=== PATIENT | female | born 1935 | race Caucasian/White ===

== ENCOUNTER 2016-08-29 17:21 | Emergency (ER) | payer OTHER ==
[2016-08-29 17:45] VITALS: TEMP 98.2
[2016-08-29] MEDS ORDERED: IPRATROPIUM/ALBUTEROL 3 ML DEYVIAL IH ONE (18:44)
--- NOTE | 2016-08-29 18:46 | EDPHY ---
H & P Time Seen by Provider: 08/29/16 18:34 HPI/ROS: CHIEF COMPLAINT: Cough and shortness of breath HISTORY OF PRESENT ILLNESS: This 79-year-old woman presents with 1 week of cough and shortness of breath which is much worse today. It is associated with yellow mucus and worse with any exertion. Today she stayed in bed all day and could even go up and down a flight of stairs. It is associated with central chest pain which is present only when she coughs and a mild sore throat. REVIEW OF SYSTEMS: Eye: no change in vision ENT: No ear symptoms. Cardiac: no chest pain or syncope Pulmonary: HPI, no hemoptysis Abdomen: no vomiting, diarrhea, abdominal pain Musculoskeletal: no back pain Skin: no rash Neuro: no headache Constitutional: no fever : no urinary symptoms A comprehensive 10 point review of systems is otherwise negative aside from elements mentioned in the history of present illness. PAST MEDICAL HISTORY: Includes hypertension and hyperlipidemia, aortic valve replacement not on anticoagulants, left total knee and hip arthroplasty, right lower lung lobectomy. The right lung surgery was in 1994 for what was thought might be cancer but it turned out to just be a piece of cartilage. Social history: Ex smoker General Appearance: Alert and conversant, cooperative. Eyes: No scleral icterus. ENT, Mouth: Normal mucous membranes. No angioedema and no pharyngeal erythema or exudate. Respiratory: Decreased breath sounds bilaterally, rhonchi at the right base. Cardiovascular: Regular rate and rhythm. 2/6 systolic murmur. Gastrointestinal: Abdomen is soft and non tender. Neurological: Alert and oriented x3. Normally conversant. Face symmetric, normal movement and sensation in all extremities. Skin: Warm and dry, no rashes. Musculoskeletal: No peripheral edema and no joint swelling. Psychiatric: Not agitated. Emergency Department course/MDM: DuoNeb, chest x-ray, CBC and screening lactate. Patient's symptoms would be unlikely to be CHF for acute coronary syndrome or pulmonary embolism. 1932: Results discussed, no evidence of pneumonia, patient says her normal baseline oxygen saturations are in the mid to high 80s. Plan to walk her around the emergency department if her symptoms or reasonable and then discharge with albuterol MDI and cough medication. Patient tolerated walking well. She is at her baseline oxygen saturation. She would like to go home which I think is reasonable. I think it is unlikely she has pneumonia or other acute bacterial infection. Smoking Status: Former smoker Constitutional: Initial Vital Signs Temperature (C) 36.8 C 08/29/16 17:42 Heart Rate 68 08/29/16 17:42 Respiratory Rate 16 08/29/16 17:42 Blood Pressure 149/72 H 08/29/16 17:42 O2 Sat (%) 88 L 08/29/16 17:42 O2 Delivery Mode Room Air O2 (L/minute) 2 Allergies/Adverse Reactions: Penicillins Allergy (Verified 08/02/11 08:34) Hives Home Medications: Medication Instructions Recorded Aspirin [Aspirin 81mg (*)] 81 mg PO HS 02/23/14 Atorvastatin Calcium [Lipitor 40 40 mg PO HS 02/23/14 mg (*)] Cholecalciferol Vit D3 [Vitamin D3 2,000 units PO DAILY 02/23/14 (*)] Herbals/Supplements -Info Only 1 ea PO DAILY 02/23/14 Multivitamins [Multivitamin (*)] 1 tab PO DAILY 02/23/14 Ferrous Sulfate [Ferrous Sulf 325 325 mg PO DAILY 10/27/14 MG (*)] [place]-3 Fatty Acids [Fish Oil 1000 1,000 mg PO DAILY 10/27/14 mg (*)] Metoprolol Tartrate [Lopressor 25 12.5 mg PO BID 01/08/15 mg (*)] Ascorbic Acid [Vitamin C 500 mg 500 mg PO DAILY 04/13/16 (*)] Calcium Carbonate [Oyster Shell 500 mg PO DAILY 04/13/16 Calcium 500 mg (*)] Acetaminophen [Tylenol 325mg (*)] 325 - 650 mg PO Q4 PRN #0 tab 04/14/16 Valacyclovir HCl [Valtrex] 1,000 mg PO TID #21 tab 04/14/16 predniSONE 60 mg PO DAILY #21 tab 04/14/16 Benzonatate [Tessalon Pearles (RX)] 100 mg PO Q8 PRN #15 cap 08/29/16 Medical Decision Making - Diagnostics EKG Interpretation: 12-lead EKG interpreted by me; official reading is in trace master. My interpretation is sinus rhythm with LVH rate 66 Differential Diagnosis: Differential diagnosis considered for shortness of breath including but not limited to pulmonary infectious process, COPD, asthma, pulmonary embolus and congestive heart failure. - Data Points Laboratory Results: Laboratory Results 08/29/16 19:02 08/29/16 19:02 08/29/16 08/29/16 08/29/16 19:08 19:02 19:02 WBC RBC Hgb Hct MCV MCH MCHC RDW Plt Count MPV Neut % (Auto) Lymph % (Auto) [place] % (Auto) Eos % (Auto) Baso % (Auto) Nucleat RBC Rel Count Absolute Neuts (auto) Absolute Lymphs (auto) Absolute Monos (auto) Absolute Eos (auto) Absolute Basos (auto) Absolute Nucleated RBC Immature Gran % Immature Gran # VBG Lactic Acid 0.9 mmol/L mmol/L (0.7-2.1) Sodium 139 mEq/L mEq/L (134-144) Potassium 4.5 mEq/L mEq/L (3.5-5.2) Chloride 102 mEq/L mEq/L (97-110) Carbon Dioxide 28 mEq/l mEq/l (22-31) Anion Gap 9 mEq/L mEq/L (8-16) BUN 15 mg/dL mg/dL (7-23) Creatinine 0.9 mg/dL mg/dL (0.6-1.0) Estimated GFR 60 Glucose 91 mg/dL mg/dL (70-100) Calcium 9.8 mg/dL mg/dL (8.5-10.4) Total Bilirubin 0.9 mg/dL mg/dL (0.1-1.4) Influenza Typ A,B (DFA) NEGATIVE FOR FLU (NEGATIVE) 08/29/16 19:02 WBC 4.84 10^3/uL 10^3/uL (3.80-9.50) RBC 4.70 10^6/uL 10^6/uL (4.18-5.33) Hgb 14.6 g/dL g/dL (12.6-16.3) Hct 42.8 % % (38.0-47.0) MCV 91.1 fL fL (81.5-99.8) MCH 31.1 pg pg (27.9-34.1) MCHC 34.1 g/dL g/dL (32.4-36.7) RDW 13.7 % % (11.5-15.2) Plt Count 183 10^3/uL 10^3/uL (150-400) MPV 9.2 fL fL (8.7-11.7) Neut % (Auto) 53.8 % % (39.3-74.2) Lymph % (Auto) 23.1 % % (15.0-45.0) [place] % (Auto) 15.7 % H % (4.5-13.0) Eos % (Auto) 6.0 % % (0.6-7.6) Baso % (Auto) 1.2 % % (0.3-1.7) Nucleat RBC Rel Count 0.0 % % (0.0-0.2) Absolute Neuts (auto) 2.60 10^3/uL 10^3/uL (1.70-6.50) Absolute Lymphs (auto) 1.12 10^3/uL 10^3/uL (1.00-3.00) Absolute Monos (auto) 0.76 10^3/uL 10^3/uL (0.30-0.80) Absolute Eos (auto) 0.29 10^3/uL 10^3/uL (0.03-0.40) Absolute Basos (auto) 0.06 10^3/uL 10^3/uL (0.02-0.10) Absolute Nucleated RBC 0.00 10^3/uL 10^3/uL (0-0.01) Immature Gran % 0.2 % % (0.0-1.1) Immature Gran # 0.01 10^3/uL 10^3/uL (0.00-0.10) VBG Lactic Acid Sodium Potassium Chloride Carbon Dioxide Anion Gap BUN Creatinine Estimated GFR Glucose Calcium Total Bilirubin Influenza Typ A,B (DFA) Medications Given: Discontinued Medications Albuterol Sulfate (Proventil Inh Prepack) 1 mdi TAKEHOME EDNOW ONE Stop: 08/29/16 19:37 Last Admin: 08/29/16 19:46 Dose: 1 mdi Albuterol/Ipratropium (Duoneb) 3 ml IH EDNOW ONE Stop: 08/29/16 18:45 Last Admin: 08/29/16 19:14 Dose: 3 ml Departure - Departure Disposition: Home, Routine, Self-Care Clinical Impression: Upper respiratory infection Qualifiers: URI type: unspecified URI Qualified Code(s): J06.9 - Acute upper respiratory infection, unspecified Condition: Good Instructions: Upper Respiratory Infection (ED) Referrals: Sheila Hoff MD [Primary Care Provider] - As per Instructions Prescriptions: Benzonatate [Tessalon Pearles (RX)] 100 mg PO Q8 PRN #15 cap PRN Reason: Cough, Moderate
[2016-08-29 19:12] LABS: % IMMATURE GRANULYOCYTES 0.2 % (0.0-1.1); ABSOLUTE IMMATURE GRANULOCYTES 0.01 10^3/uL (0.00-0.10); ADD DIFF? NO; ADD MORPH? NO; ADD SCAN? NO; ATYPICAL LYMPHOCYTE FLAG 20 (0-99); FRAGMENT RBC FLAG 0 (0-99); HEMATOCRIT 42.8 % (38.0-47.0); HEMOGLOBIN 14.6 g/dL (12.6-16.3); LEFT SHIFT FLG 0 (0-99); LIPEMIA HEMOLYSIS FLAG 90 (0-99); MEAN CELL HEMOGLOBIN 31.1 pg (27.9-34.1); MEAN CELL HEMOGLOBIN CONCENTR. 34.1 g/dL (32.4-36.7); MEAN CELL VOLUME 91.1 fL (81.5-99.8); MEAN PLATELET VOLUME 9.2 fL (8.7-11.7); PLATELET CLUMPS FLAG 0 (0-99); PLATELET COUNT 183 10^3/uL (150-400); RED CELL DISTRIBUTION WIDTH 13.7 % (11.5-15.2)
--- NOTE | 2016-08-29 19:17 | CPEKG ---
Heart Rate: 66 RR Interval: 909 P-R Interval: 180 QRSD Interval: 84 QT Interval: 440 QTC Interval: 461 P Lee: 37 QRS Lee: 3 T Wave Lee: 84 EKG Severity - ABNORMAL ECG - EKG Impression: SINUS RHYTHM EKG Impression: CONSIDER LEFT VENTRICULAR HYPERTROPHY Electronically Signed By: Manas Garcia 29-Aug-2016 19:20:55
[2016-08-29 19:29] LABS: ANION GAP 9 mEq/L (8-16); BILIRUBIN,TOTAL 0.9 mg/dL (0.1-1.4); CALCIUM 9.8 mg/dL (8.5-10.4); CARBON DIOXIDE 28 mEq/l (22-31); CHLORIDE 102 mEq/L (97-110); CREATININE 0.9 mg/dL (0.6-1.0); GLOMERULAR FILTRATION RATE 60; GLUCOSE 91 mg/dL (70-100); POTASSIUM 4.5 mEq/L (3.5-5.2); SODIUM 139 mEq/L (134-144)
[2016-08-29] MEDS ORDERED: ALBUTEROL INH PREPACK MDI TAKEHOME ONE (19:36)
[2016-08-29 19:48] VITALS: BP 142/58; PULSE 91; RESP 20; O2SAT 90
== END 2016-08-29 19:48 | disposition home or self-care (01) ==
DX: J06.9 Acute upper respiratory infection, unspecified (principal); I10 Essential (primary) hypertension; Z79.82 Long term (current) use of aspirin; Z87.891 Personal history of nicotine dependence

== ENCOUNTER → 2016-12-18 | Outpatient (CLI) | payer OTHER | LOC: BMCIMAGING 13:53 | PROVIDERS: ATTEND Internal Medicine | DX: Z12.31 Encounter for screening mammogram for malignant neoplasm of breast (principal); Z13.820 Encounter for screening for osteoporosis | CPT/HCPCS: G0202 ==

== ENCOUNTER → 2017-01-01 | Outpatient (CLI) | payer OTHER | LOC: BMCIMAGING 12:45 | PROVIDERS: ATTEND Radiology Diagnostic Radiology | DX: M17.11 Unilateral primary osteoarthritis, right knee (principal) ==

== ENCOUNTER → 2017-07-14 | Outpatient (CLI) | payer OTHER | LOC: BMCIMAGING 14:13 | PROVIDERS: ATTEND Internal Medicine | DX: R07.89 Other chest pain (principal) ==

== ENCOUNTER → 2017-09-12 | Outpatient (CLI) | payer OTHER | LOC: BMCIMAGING 11:30 | PROVIDERS: ATTEND Internal Medicine | DX: R50.9 Fever, unspecified (principal); Z95.2 Presence of prosthetic heart valve; Z90.2 Acquired absence of lung [part of] ==

== ENCOUNTER 2017-09-13 12:09 | Inpatient (IN) | payer OTHER ==
--- NOTE | 2017-09-13 12:12 | EDPHY ---
H & P Time Seen by Provider: 09/13/17 12:11 HPI/ROS: CHIEF COMPLAINT: Chills and weakness, positive blood culture HISTORY OF PRESENT ILLNESS: Patient had bovine aortic valve replacement in 2014 by [facility]. 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 Over the last 2 weeks she has had fever and chills and myalgias along with 10 lb weight loss and generalized increasing fatigue. Earlier this week she was treated for UTI but did not feel better and yesterday had blood cultures drawn at her doctor's office. Blood cultures drawn yesterday are growing gram-positive cocci in chains, strep not group a in our lab. Patient still has severe fatigue and weakness. Not associated with chest pain or syncope or shortness of breath. Not better worse with anything. REVIEW OF SYSTEMS: Eye: no change in vision ENT: no sore throat Cardiac: no chest pain or syncope Pulmonary: no cough , history of pulmonary hypertension with chronic shortness of breath unchanged Abdomen: Vomited 2 weeks ago and then again yesterday. No abdominal pain or diarrhea. Musculoskeletal: Diffuse myalgias Skin: no rash Neuro: no headache Constitutional: HPI : no urinary symptoms A comprehensive 10 point review of systems is otherwise negative aside from elements mentioned in the history of present illness. PAST MEDICAL HISTORY: Includes aortic valve replacement as above, hypertension , hyperlipidemia, left knee and hip replacement. Right lung surgery and pulmonary hypertension with chronic shortness of breath. Social history: Here with family, former smoker General Appearance: Alert and conversant, cooperative. Eyes: No scleral icterus. ENT, Mouth: Normal mucous membranes. Respiratory: Normal respiratory effort, breath sounds equal, lungs are clear to auscultation. Cardiovascular: Regular rate and rhythm. 3/6 systolic murmur. Gastrointestinal: Abdomen is soft and non tender. Neurological: Alert, face symmetric, normal motor and sensory in extremities. Skin: Warm and dry, no rashes. Musculoskeletal: No peripheral edema. Psychiatric: Not agitated. Emergency Department course/MDM: Discussed with Dr. Dodge prior to arrival at 12:22 p.m., 2 g ceftriaxone IV and 2 sets of blood cultures. The patient's penicillin allergy she describes as "a rash"but not anaphylaxis and did not to be hospitalized. [facility] for Dr. Davis [id number]. Does not have severe sepsis. IV antibiotics started after blood cultures drawn in the emergency department. Zofran given for nausea, Tylenol for fever. Smoking Status: Former smoker Constitutional: Initial Vital Signs Temperature (C) 37.6 C 09/13/17 12:14 Heart Rate 88 09/13/17 12:14 Respiratory Rate 20 09/13/17 12:14 Blood Pressure 174/74 H 09/13/17 12:14 O2 Sat (%) 94 09/13/17 12:14 O2 Delivery Mode Room Air Allergies/Adverse Reactions: Penicillins Allergy (Verified 08/02/11 08:34) Hives Home Medications: Medication Instructions Recorded Ascorbic Acid [Vitamin C 250 mg 250 mg PO DAILY 09/13/17 (*)] Aspirin EC [Aspirin EC 81 mg (*)] 81 mg PO HS 09/13/17 Atorvastatin Calcium [Lipitor 40 40 mg PO HS 09/13/17 mg (*)] Calcium Carbonate [Oyster Shell 500 mg PO DAILY 09/13/17 Calcium 500 mg (*)] Cholecalciferol Vit D3 [Vitamin D3 1,000 units PO DAILY 09/13/17 (*)] Multivitamins [Multivitamin (*)] 1 each PO DAILY 09/13/17 [place]-3 Fatty Acids [Fish Oil 1000 1,000 mg PO DAILY 09/13/17 mg (*)] Medical Decision Making - Diagnostics EKG Interpretation: 12-lead EKG interpreted by me; official reading is in trace master. My interpretation is sinus rhythm rate 89, normal intervals. Differential Diagnosis: Differential for positive blood culture considered including but not limited to skin contaminant, lab error, endocarditis, sepsis. - Data Points Medications Given: Discontinued Medications Acetaminophen (Tylenol) 1,000 mg PO EDNOW ONE Stop: 09/13/17 13:28 Last Admin: 09/13/17 13:36 Dose: 1,000 mg Ceftriaxone Sodium 2 gm/ (Sterile Water) 20 mls @ 300 mls/hr IV EDNOW ONE PRN Reason: Protocol Stop: 09/13/17 12:43 Last Admin: 09/13/17 13:24 Dose: 20 mls Ondansetron HCl (Zofran) 4 mg IVP EDNOW ONE Stop: 09/13/17 13:34 Last Admin: 09/13/17 13:36 Dose: 4 mg Departure - Departure Disposition: [facility] Clinical Impression: Endocarditis Qualifiers: Endocarditis type: infective Infective endocarditis organism: bacterial Chronicity: unspecified Qualified Code(s): I33.0 - Acute and subacute infective endocarditis Condition: Fair
[2017-09-13] MEDS ORDERED: cefTRIAXone 2 GM in STERILE WATER INJ 20 ML IV ONE (12:40)
--- NOTE | 2017-09-13 13:06 | CPEKG ---
Heart Rate: 89 RR Interval: 674 P-R Interval: 148 QRSD Interval: 82 QT Interval: 376 QTC Interval: 458 P [place]: 32 QRS [place]: -8 T Wave [place]: 58 EKG Severity - NORMAL ECG - EKG Impression: SINUS RHYTHM Electronically Signed By: Manas Garcia 13-Sep-2017 13:18:46
[2017-09-13 13:07] LABS: PLATELET COUNT 226 10^3/uL (150-400)
[2017-09-13 13:16] LABS: INR 1.21 (0.83-1.16); PROTIME(PATIENT) 15.5 SEC (12.0-15.0)
[2017-09-13] MEDS ORDERED: ACETAMINOPHEN 500 MG TAB PO ONE (13:27)
[2017-09-13] MEDS ORDERED: ONDANSETRON 4 MG/2 ML VIAL IVP ONE (13:33)
[2017-09-13] MEDS ORDERED: HYDROCODONE/APAP 5/325 TAB PO PRN (14:57)
[2017-09-13] MEDS: NS 1,000 ML IV SCH (15:23)
--- NOTE | 2017-09-13 16:04 | GHP ---
[f rep st] HISTORY AND PHYSICAL DATE OF ADMISSION: 09/13/2017 CHIEF COMPLAINT: Recurrent fever and chills. HISTORY OF PRESENT ILLNESS: The patient is a pleasant 82-year-old female with a past medical history of aortic stenosis, status post bioprosthetic aortic valve replacement in 2014, who had presented to her primary care provider's office earlier this week with complaints of recurrent fevers and chills. Blood cultures were ordered and this morning came back showing gram-positive cocci in chains. The patient was then contacted and instructed to present to the [facility] for further ev aluation. The patient states that a month or 2 after her aortic valve replacement surgery, she recei abbe a letter from the hospital that there could have been some contamination in the machines used for her aortic valve replacement. She does state that she had intermittent chills going back to late , but were very brief; however, over the past 2-3 weeks, the severity and frequency had escalated. She has not had any recent dental infections. She states that she had her teeth cleaned last in the summer of 2016. She has not had any travel outside the country. No recent skin rashes. She did st ate that she was diagnosed with influenza in May. She does note some bilateral lower abdominal pain. PAST MEDICAL HISTORY: 1. Aortic stenosis, status post bioprosthetic aortic valve replacement in 2014. 2. Atrial fibrillation: One episode status post her surgery, but no known recurrence since that [place] e. 3. Hypertension. 4. Chronic hypoxic respiratory failure on nocturnal oxygen. 5. Pulmonary hypertension. 6. Hyperlipidemia. 7. Recurrent urinary tract infections. 8. History of Perez palsy. PAST SURGICAL HISTORY: 1. Aortic valve replacement in 2014. 2. Total knee arthroplasty. MEDICATIONS: 1. Aspirin 81 mg daily. 2. Atorvastatin 40 mg nightly. ALLERGIES: 1. Penicillin: She states that this was diagnosed many years ago and was a rash. FAMILY HISTORY: Mother and father both . Her mother in the 1940s of stomach cancer. F ather later in life in his 70s related to complications from pneumonia. SOCIAL HISTORY: The patient is a remote smoker in her teens. She is currently and has child jane. 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 Code status was reviewed during t his admission, and patient is a full code status. REVIEW OF SYSTEMS: CONSTITUTIONAL: Positive for recurrent fevers and chills dating back over the pa st 1-1/2 to 2 years, but more severe in the past 2-3 weeks. ENT: Positive for influenza infection a pproximately 4 months ago. CARDIOVASCULAR: No complaints of chest pains, palpitations, or syncopal episodes. RESPIRATORY: No complaints of shortness of breath or productive cough. GI: For bilatera l lower abdominal pain. No nausea, vomiting, diarrhea, or constipation. : No report of any diffi culty with urination. She did note some blood in her urine earlier this week. NEUROLOGIC: No compl aints of headaches or focal weakness. HEMATOLOGIC: No history of any deep vein thrombosis or pulmon kala embolism. PSYCHIATRIC: No history of anxiety or depression. ENDOCRINE: No history of hypothyr oidism or diabetes. SKIN: No new or recent skin rashes. MUSCULOSKELETAL: She does have issues relat ed to her right shoulder. She states it will frequently come out of socket. She does note some left shoulder discomfort, but does not expand on it significantly. PHYSICAL EXAMINATION: VITAL SIGNS: Temperature 37.6, blood pressure 174/74, heart rate 88, respirat ions 20, satting 98% on room air. GENERAL: Patient appears comfortable. She does not appear toxic. She is awake, alert, conversant, and able to provide a good history: HEENT: Extraocular movements intact. No scleral icterus. No hemorrhages noted. NECK: Supple. No adenopathy. No thyroid enla rgement appreciated. CHEST: Clear to auscultation with normal respiratory effort. HEART: Systolic murmur right upper sternal border. Normal. ABDOMEN: Tender with palpation around the right upper quadrant. Otherwise soft and nondistended with normal bowel sounds. : No Urbina catheter in place . EXTREMITIES: No significant pitting edema appreciated. NEUROLOGIC: Cranial nerves 2-12 appear g rossly intact with 5/5 strength in extremities. SKIN: No concerning skin rashes noted. No splinter hemorrhages of the fingernails appreciated. LABORATORY DATA: White blood cell count 6, hemoglobin 12, platelets 226. Sodium 131, potassium 4.3, chloride 95, bicarb 25, BUN is 8, creatinine 0.7, glucose a 0.7. INR 1.2. Lactic acid 1.2. Blood culture showing gram-positive cocci in chains. Chest x-ray: Newly identified abnormality in the right humeral head. Recommend obtaining dedicated right shoulder x-ray for further evaluation. ASSESSMENT/PLAN: 1. Bacteremia: I have reviewed her case with Dr. Dodge today; I appreciate her input. Echocardiog judy has been ordered along with 2 g ceftriaxone daily. Repeat blood cultures have been ordered as we ll as echocardiogram. She may ultimately need a transesophageal echocardiogram. CRP and sedimentati on rates have been ordered for tomorrow, as well. Will await final identification on the blood cultu res. 2. Hyponatremia: Possibly hypovolemia-related in light of recurrent fevers. IV fluids with normal saline has been ordered. Will repeat sodium level in the morning. If worsening, consider checking u rine sodium and urine osmolality. 3. Right humeral head abnormalities: Will obtain dedicated x-rays of the right shoulder. 4. Transaminitis: Right upper quadrant ultrasound ordered repeat in the morning. 5. Aortic stenosis: Patient is status post a bioprosthetic aortic valve. Await echocardiogram. 6. Atrial fibrillation: Continue patient on telemetry. She apparently had 1 episode of atrial fibr illation after her surgery, but has not had any known recurrence. Continue with aspirin therapy. 7. Hyperlipidemia: Continue atorvastatin. 8. Elevated blood pressure: Monitor blood pressures to assess whether patient may actually be hyper tensive. 9. Deep venous thrombosis prophylaxis: Lovenox. DISPOSITION: I anticipate she will be here for over 2 midnights. Will admit her under inpatient [facility]. /[id number]/MODL
--- NOTE | 2017-09-13 16:45 | GCON ---
[f rep st] CONSULTATION DATE OF CONSULTATION: 09/13/2017 PROVIDER REQUESTING CONSULTATION: Manas Garcia MD REASON FOR CONSULTATION: Bacteremia. HISTORY OF PRESENT ILLNESS: This is an 82-year-old woman with a past medical history of aortic valve replacement in 12/2014, who was in her usual state of health until approximately September 01 when she developed sudden onset of rigors , chills, and stomach pain associated with vomiting x2 hours. She did feel subsequently better, although had persistent weakness. She continued to have intermittent headaches, and then sweats and chills developed, and she noticed a 10-pound weight loss. She was evaluated by her primary care doctor on 2017, and a urinalysis was performed, and patient was given empiric antibiotics for UTI twice daily;unknown name. Patient denies there was any change in her symptoms; in fact, her symptoms worsened. She was re-evaluated on 09/12/2017, and 1 set of blood cultures was obtained that subsequently grew Streptococcus and patient was asked to return to the emergency room today for further evaluation. On the , a chest x-ray was also ordered that showed no focal infiltrate, but some sclerosis of her right shoulder that was new. In addition to symptoms as noted above, patient denies shoulder pain and has minimal ongoing abdominal pain, but has daily sweats in the morning and chills in the afternoon. She has had a total of 3 episodes of vomiting, 2 of them post- tussive. Her cough is occasionally productive but mostly dry, and she describes postnasal drip. No rashes. She has not had recent dental work; in fact, her last in the work was last summer. She has chronic jaw pain. She denies any specific recent injuries. She did have a lesion on her mid chest injected with steroids approximately 1 month ago. PAST MEDICAL HISTORY: Aortic valve replacement performed at the [facility] by Dr. Briggs in December 2014. Last echocardiogram was performed on and showed an ejection fraction of 70%, a bioprosthetic aortic valve in place with [id number] aortic regurgitation, mild tricuspid regurgitation, and Doppler evidence for mild pulmonary hypertension. She also has hypertension , hyperlipidemia, and pulmonary hypertension. She had right lower lobe resection in 1995 for concern for cancer that was negative. She has had a left total knee arthroplasty in May 2009, and a left total hip replacement in . She has a history of Perez palsy and bilateral cataract surgery. She had a history of atrial fibrillation complicating her postoperative course in and underwent cardioversion; since then has not been in AFib. ALLERGIES: Penicillin causes a rash. She tolerated cephalosporin in the emergency room. SOCIAL HISTORY: Patient has lived all over the world due to her 's travels, including an extended period of time in [facility]. She has been almost 60 years. 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 She has 2 cats that do occasionally scratch her and bite her. They have 2 pet mice and a dog. No birds or fish. She does regularly sit in a hot tub that is treated only with hydrogen peroxide. Last was a couple weeks ago. Last international travel was years ago. Her daughter lives with her at her home. No sick contacts. No known TB exposures. FAMILY HISTORY: Negative for history of stroke. REVIEW OF SYSTEMS: A complete 10-point review of systems was performed and is negative except as mentioned in the HPI. MEDICATION LIST: Ceftriaxone 2 g IV x1, Tylenol, [place], aspirin 81 mg daily, Lipitor 40 mg daily, Lovenox 40 subcu daily, Phenergan as needed, and IV fluids. PHYSICAL EXAMINATION: VITAL SIGNS: Blood pressure 171/75, heart rate 86, saturation 94% in room air, temperature 38.6, and respiratory rate 16. GENERAL : This is a pleasant elderly woman lying flat in bed, in no acute distress with fluent speech. HEENT: No conjunctival hemorrhages. Pupils are reactive bilaterally. Obvious prior cataract surgery. Oropharynx significant prior dental work with multiple dental implants. No obvious dental caries or gum irritation. Moist mucous membranes. No oral ulcerations or exudate. NECK: Supple. No lymphadenopathy. CARDIOVASCULAR: Regular rate. She had a 3/6 systolic murmur, loudest at the left sternal border and a possible faint diastolic murmur. CHEST: Clear to auscultation bilaterally. ABDOMEN: Soft, nontender. Bowel sounds are present. EXTREMITIES: No clubbing, cyanosis, or edema. No joint swelling. No Janeway lesions or splinter hemorrhages. No Osler nodes. NEUROLOGIC: Alert and oriented x4. Moving all 4 extremities equally. SKIN: No rashes. No peripheral stigmata of endocarditis. LABORATORY: White count 6.2, hematocrit 37, platelets of 226; 77% neutrophils, 9.5% lymphocytes. Creatinine 0.7, AST 53, ALT 56, alk phos 108, total bili 1.0. Albumin 3.3, total protein 6.8, sodium 131. Urinalysis is pending. Respiratory panel PCR 09/12/2017 was negative. Blood cultures, 1 set 09/12/2017 : GPCs in chains; streptococcus (not group A or pneumococcus). ID is pending. IMAGING: Pending other than chest x-ray mentioned in HPI. ASSESSMENT AND PLAN: This is an 82-year-old woman with past medical history of aortic valve replacement in 12/2016, who presents with streptococcal bacteremia of unclear source. Consider potential etiologies: Urinary source although pathogens identified on 09/08/2017 are not consistent with organism identified 2 days ago. Also with intermittent nausea, anorexia, and weight loss, could consider source of gallbladder. She does have respiratory symptoms, but chest x -rays are unremarkable. To evaluate further, would recommend the followin. Start with a transesophageal echo; unclear chronicity and magnitude of current systolic murmur. 2. Right upper quadrant ultrasound to evaluate gallbladder. 3. Obtain a urinalysis to assess for ongoing urinary abnormalities. 4. Could consider a CT chest/abd/pelvis going forward, depending on initial evaluation for the source. 5. Discussed potential need for transesophageal echo with family, depending on initial workup findings. 6. Based on BCID panel, would recommend ceftriaxone 2 g IV daily. Patient has already received the 1st dose. 7. Discussed long-term therapy, which could be up to 6 weeks of IV antibiotics and a PICC line placement'; risks and benefits with the patient and daughter as well as . TIME SPENT: 70 minutes with greater than 50% of time spent with education and counseling as described above. Thank you for this consultation. Going to continue to follow on a daily basis. /[id number]/MODL MTDD
--- NOTE | 2017-09-13 17:09 | PDMN ---
Medical Necessity Medical necessity: C/M review: Patient meets INPT criteria under [facility] [place]-160 Sepsis and other febrile illness without focal infection: Acute and persistent bacteremia, fevers, 09/12/2017 blood cx x 2 positive for gram positive cocci in chains, hyponatremia, Na 131, new- right humeral head abnormalities on CXR, transaminitis, AST 53, ALT 56 requiring right shoulder xray, planned echocardiogram, ongoing IV Ceftriaxione QD, IV NS 75 ml/hr., cardiac monitoring , pulse oximetry, supplemental O2, acute inpt PT, comorbid aortic stenosis S/P bioprosthetic valve replacement in 2014, atrial fibrillation, hyperlipidemia, elevated blood pressure, hypertension, chronic hypoxic respiratory failure on nocturnal O2, history of recurrent UTI's, Perez's palsy. anticipates > 2 MN LOS for ongoing med nec for eval and TX of above. Patient is Medicare Advantage which follows guidelines CMS outs forth.
[2017-09-13] MEDS: PROMETHAZINE HCL 25 MG/ML INJ IVP PRN (18:34)
[2017-09-13] MEDS: ASPIRIN EC 81 MG TAB PO SCH (20:00)
[2017-09-13] MEDS: ATORVASTATIN CALCIUM 40 MG TAB PO SCH (20:00)
[2017-09-14] MEDS: ACETAMINOPHEN 325 MG TAB PO PRN (02:13)
[2017-09-14 04:23] LABS: PLATELET COUNT 200 10^3/uL (150-400)
--- NOTE | 2017-09-14 08:11 | ECHO ---
[email or web address] [address] [address] Main: [phone] Fax: Transthoracic Echocardiogram Name: HORTENCIA CUNNINGHAM MR#: [id number] Study Date: 09/13/2017 Study Time: 03:38 PM Date of : 1935 Age: 82 year(s) Height: 167.6 cm (66 in.) Weight: 79.38 kg (175 lb.) BSA: 1.89 m2 Gender: Female Examination: Echo Indication: AVR/now with bacteremia and systolic murmur Image Quality: Contrast: Requested by: Christina Dodge BP: 118 mmHg/55 mmHg Heart Rate: Rhythm: Indication: AVR/now with bacteremia and systolic murmur Procedure Staff Senior Mechanical Estimator: Pat Mosher RDCS Reading Physician: Dontae Jovel MD Requesting Provider: Conclusions: Normal size left ventricle. Borderline concentric LV hypertrophy. Normal global systolic LV function. The ejection fraction is estimated to be 65-70 %. Mild mitral annular calcification. Mild mitral valve regurgitation is present. The aortic valve is a bioprosthesis. AV max PG is 22mmHG. AV mean PG is 12mmHG.. The tricuspid valve is normal in appearance and function. Mild tricuspid regurgitation is present. Measurements: Chambers Valvular Assessment AV/MV Valvular Assessment TV/PV Normal Normal Normal Name Value Range Name Value Range Name Value Range Ao Eda (2D): 1.7 cm (1.4 cm-2.6 AV meanP mmHg ( - ) TR Vmax: 2.79 mm/s ( - ) cm) MV E Vmax: 1.11 m/s ( - ) TR PGmax: 31 mmHg ( - ) IVSd (2D): 1.1 cm (0.6 cm-1.1 MV A Vmax: 0.96 m/s ( - ) syst. PAP: 36 mmHg ( - ) cm) MV E/A: 1.16 ( - ) LVDd (2D): 4.3 cm (3.9 cm-5.3 cm) LVDs (2D): 2.4 cm (2.1 cm-4 cm) LVPWd (2D): 1.0 cm ( - ) LVEF (MOD4): 83 % (>=55 %) EF Range: 65-70 % Continued Measurements: Chambers Valvular Assessment AV/MV Valvular Assessment TV/PV Patient: HORTENCIA CUNNINGHAM Study Date: 09/13/2017 Page 1 of 2 03:38 PM Name Value Name Value Name Value LADs: 4.0 cm MV E' Septal: 0.07 m/s CVP (est.): 5 mmHg LADs Lon.1 cm MV E/E' Septal: 17.00 LA Area: 19.3 cm2 MV E/E' Lateral: 15.20 Findings: Left Ventricle: Normal size left ventricle. Borderline concentric LV hypertrophy. Normal global systolic LV function. The ejection fraction is estimated to be 65-70 %. No regional wall motion abnormality. Right Ventricle: Normal size right ventricle. Left Atrium: The left atrium is normal in size. Right Atrium: The right atrium is normal in size. Mitral Valve: Mild mitral annular calcification. Mild mitral valve regurgitation is present. Aortic Valve: The aortic valve is a bioprosthesis. AV max PG is 22mmHG. AV mean PG is 12mmHG.. Tricuspid Valve: The tricuspid valve is normal in appearance and function. Mild tricuspid regurgitation is present. Pulmonic Valve: The pulmonic valve is normal in appearance and function. Trivial pulmonic valve regurgitation. Aorta: The aorta is normal. Pericardium: No pericardial effusion. (No Signature Object) Patient: HORTENCIA CUNNINGHAM Study Date: 09/13/2017 Page 2 of 2 03:38 PM [id number]
[2017-09-14] MEDS: cefTRIAXone 2 GM in STERILE WATER INJ 20 ML IV SCH (08:26)
[2017-09-14] MEDS: ENOXAPARIN 40 MG/0.4 ML SYR SC SCH (08:26)
--- NOTE | 2017-09-14 12:37 | PCMIDPN ---
Assessment/Plan: Streptococcal Galloylyticus bacteremia (formerly S Bovis). TTE did not demonstrate alek endocarditis. Source not clear but today patient added that L upper tooth hurt during illness but not before and not now. RUQ US negative for source --continue ceftriaxone --blood cultures repeated this AM will follow to assess for clearance --LEOBARDO ordered --consider dental imaging vs just follow up with dentist as outpatient --discussed need for PICC line at admit, but await blood culture clearance --now known to s. bovis will need colonoscopy as outpatient, but I did not discuss (species not available at time of my exam). Also consider CT abd/pelvis , also not discussed at time of exam today. She described #10 weight loss associated w illness but no BRBPR, melena meds Ceftriaxone 2gm IV qD #2 Micro 09/12 blood cx 1 set : Streptococcal Galloylyticus 09/13 blood cx /: streptococcus (second set collected after blood cx) Subjective: patient feeling much better appetite better no diarrhea no rash Objective: Vital Signs Temp Pulse Resp BP Pulse Ox 36.4 C 98 18 134/59 H 98 09/14/17 11:21 09/14/17 11:21 09/14/17 11:21 09/14/17 11:21 09/14/17 11:21 Microbiology 09/13/17 12:57 Mycobacterial Smear (FROILAN) - Final Blood Laboratory Results 09/14/17 03:50 09/14/17 03:50 09/13/17 09/14/17 09/15/17 05:59 05:59 05:59 Intake Total 1380 240 Output Total 2100 Balance -720 240 ESR 108 MM/HR (0-30) H 09/14/17 03:50 C-Reactive Protein 61.2 mg/L (<10.0) H 09/14/17 03:50 - Physical Exam General Appearance: alert, no apparent distress EENT: pale conjunctiva, No scleral icterus Respiratory: lungs clear, normal breath sounds, No accessory muscle use Neck: supple Cardiac/Chest: regular rate, rhythm, systolic murmur Extremities: No pedal edema Abdomen: normal bowel sounds, non-tender, soft Skin: normal color, warm/dry, No rash, No embolic lesions Neuro/Psych: alert, normal mood/affect, oriented x 3 - Time Spent With Patient Time Spent with Patient: greater than 35 minutes (Daughter present at time of exam and discussion of plans) Time Spent with Patient: Greater than 35 minutes spent on this patients care, greater than 50% of time spent counseling, educating, and coordinating care regarding the above mentioned plan. ICD10 Worksheet Patient Problems: Problems Problem Status Onset Endocarditis Acute Aortic valvar stenosis Acute Atrial fibrillation Acute CVA (cerebral vascular accident) Acute Facial weakness Acute Osteoarthritis of hip Acute
--- NOTE | 2017-09-14 15:02 | HOSPPROG ---
Hospitalist Progress Note Assessment/Plan: Subjective Follow-up on bacteremia Patient reports that she is feeling much better this morning. She states that her headaches have subsided. She also states that overall her energy level feels much better. Objective Vital signs as detailed below On exam, patient appears comfortable she is awake alert conversant in no acute distress. On heart exam she has of murmur at the right upper sternal border otherwise she is regular. Lungs on lung exam normal respiratory effort. Clear without any wheezing. Abdomen, non tender nondistended normal bowel sounds. no Urbina catheter in place. Extremities no significant pitting edema. Musculoskeletal no calf pain with palpation. Skin no concerning skin rashes visualized. No splinter hemorrhages noted in her fingernails. Labs as detailed below Assessment plan 1. Bacteremia-patient's blood cultures are currently growing what appeared to be streptococcal bacteria. Await final culture results. Appreciate ID's assistance on the case. Clinically patient is much better with the current ceftriaxone repeat blood cultures have been ordered and are currently pending. A transesophageal echocardiogram has been ordered for further investigation of her aortic valve as she has a bioprosthetic aortic valve. 2. Acute hypoxic respiratory failure-patient is needing a small amount of oxygen to maintain normal saturations. I will order a chest x-ray for further assessment 3. Right humerus bone findings-dedicated shoulder x-ray showed ossified loose bodies in the right shoulder region. There is no suggestion of osteomyelitis. She has ongoing issues with her right shoulder. 4. Transaminitis-this has resolved this morning by repeat liver enzymes. A right upper quadrant ultrasound was ordered but did not show any worrisome findings. 5. Elevated blood pressure-these appear to have normalized. I suspect this was likely stress response from when she was in the emergency room. 6. Aortic stenosis patient is status post bioprosthetic aortic valve replacement. 7. Atrial fibrillation-patient had 1 episode of atrial fibrillation after her aortic valve surgery. She has not had any known recurrence fibrillation continue telemetry monitoring for now. She is on aspirin. 8. Hyperlipidemia-continue current atorvastatin. 9. DVT prophylaxis-continue current Lovenox. 9. Disposition-continue work with physical therapy and occupational therapy while she is here in the hospital. I would anticipate she would be able to return back to her home once medically cleared. Objective: Vital Signs Temp Pulse Resp BP Pulse Ox 36.4 C 98 18 134/59 H 98 03/25/18 11:21 09/14/17 11:21 09/14/17 11:21 09/14/17 11:21 09/14/17 11:21 Microbiology 09/13/17 12:57 Mycobacterial Smear (FROILAN) - Final Blood Laboratory Results 09/14/17 03:50 09/14/17 03:50 09/13/17 09/14/17 09/15/17 05:59 05:59 05:59 Intake Total 1380 240 Output Total 2100 Balance -720 240 PT 15.5 SEC (12.0-15.0) H 09/13/17 12:51 INR 1.21 (0.83-1.16) H 09/13/17 12:51 ICD10 Worksheet Patient Problems: Problems Problem Status Onset Endocarditis Acute Aortic valvar stenosis Acute Atrial fibrillation Acute CVA (cerebral vascular accident) Acute Facial weakness Acute Osteoarthritis of hip Acute
--- NOTE | 2017-09-14 16:21 | ASMTCMCOM ---
CM Note CM Note Notes: 09/14/2017 Case Management Note Met w/pt, daughter Mala [phone] and granddaughter Joy. Pt Biju can be reached on the home phone. Pt son Aramis [phone]. Pt lives with Mala and Joy. Aramis lives next door with his . Pt is driving and has no trouble obtaining groceries. There are no case management needs from PT. Case management will follow to assess for d/c IV antibiotic needs. Case Management d/c poc: to be determined. Date Signed: 09/14/2017 04:20 PM Electronically Signed By:Yana Dang RN
[2017-09-14] MEDS: ASPIRIN EC 81 MG TAB PO SCH (19:28)
[2017-09-14] MEDS: ATORVASTATIN CALCIUM 40 MG TAB PO SCH (19:28)
[2017-09-14] MEDS: PROMETHAZINE HCL 25 MG/ML INJ IVP PRN (19:29)
[2017-09-15] MEDS: ACETAMINOPHEN 325 MG TAB PO PRN ×2 (00:45→21:30)
[2017-09-15 04:21] LABS: PLATELET COUNT 218 10^3/uL (150-400)
[2017-09-15] MEDS: cefTRIAXone 2 GM in STERILE WATER INJ 20 ML IV SCH (11:03)
[2017-09-15] MEDS: ENOXAPARIN 40 MG/0.4 ML SYR SC SCH (11:03)
--- NOTE | 2017-09-15 11:38 | PCMIDPN ---
Assessment/Plan: Assessment: Streptococcus gallolyticus bacteremia from an unknown source. Patient to get a LEOBARDO later today. If this is negative will pursue abdominal and pelvic imaging. Patient's symptomatology for 2-3 weeks before presentation is more reflective of gastrointestinal pseudo-obstruction or incomplete obstruction. Given the species of bacteremia this may raise concern for colonic malignancy. Will check a CEA and CA 19-9 level today. Patient supposedly had a colonoscopy as early as 3 years ago. No findings by patient's recollection. Plan: 1. Continue IV ceftriaxone 2. Check CEA and CA 19-9 values. 3. Follow up on LEOBARDO results. 4. Follow clinical course. 09/15/17 11:35 09/15/17 11:36 Subjective: Patient is resting in her hospital bed. Complaining that she is not allowed to eat. No fevers or chills. States she feels slightly better than admission. Objective: Ceftriaxone # 2 Vital Signs Temp Pulse Resp BP Pulse Ox 36.7 C 59 L 18 139/78 H 98 09/15/17 07:50 09/15/17 07:50 09/15/17 07:50 09/15/17 07:50 09/15/17 07:50 Laboratory Results 09/15/17 03:20 09/15/17 03:20 09/14/17 09/15/17 09/16/17 05:59 05:59 05:59 Intake Total 1380 2615 Output Total 2100 2600 Balance -720 15 ESR 108 MM/HR (0-30) H 09/14/17 03:50 C-Reactive Protein 61.2 mg/L (<10.0) H 09/14/17 03:50 - Physical Exam General Appearance: WD/WN, alert, no apparent distress, non-toxic Respiratory: lungs clear, normal breath sounds, No respiratory distress Cardiac/Chest: regular rate, rhythm, No tachycardia Extremities: non-tender, normal inspection Peripheral Pulses: 3+: dorsalis-pedis (R), dorsalis-pedis (L) Skin: normal color, warm/dry, No rash Neuro/Psych: alert, normal mood/affect, oriented x 3 ICD10 Worksheet Patient Problems: Problems Problem Status Onset Endocarditis Acute Aortic valvar stenosis Acute Atrial fibrillation Acute CVA (cerebral vascular accident) Acute Facial weakness Acute Osteoarthritis of hip Acute
[2017-09-15] MEDS ORDERED: ATROPINE SULFATE 1 MG/10 ML SYR ONE (14:30)
[2017-09-15] MEDS ORDERED: PROPOFOL 200 MG/20 ML VIAL ONE (14:31)
--- NOTE | 2017-09-15 14:31 | PDANEPAE ---
ANE History of Present Illness 82 year old with positive blood cultures ANE Past Medical History - Cardiovascular History Hx Hypertension: Yes Hx Arrhythmias: No Hx Coronary Artery / Peripheral Vascular Disease: No Hx CHF / Valvular Disease: No Cardiovascular History Comment: HIGH CHOL. "VALVE IS CORRODED BUT IS STABLE" - Pulmonary History Hx COPD: No Hx Asthma/Reactive Airway Disease: No Hx Recent Upper Respiratory Infection: No Hx Oxygen in Use at Home: Yes O2 in Use at Home (L/minute): 2 Hx Sleep Apnea: Yes Pulmonary History Comment: RADHIKA POSITIVE - Neurologic History Hx Cerebrovascular Accident: No Hx Seizures: No Hx Dementia: No - Endocrine History Hx Diabetes: No - Renal History Hx Renal Disorders: No - Liver History Hx Hepatic Disorders: No - Neurological & Psychiatric Hx Hx Neurological and Psychiatric Disorders: No - Cancer History Hx Cancer: No - Congenital Disorder History Hx Congenital Disorders: No - GI History Hx Gastrointestinal Disorders: Yes Gastrointestinal History Comment: OCCASSIONAL REFLUX USES PEPCID OTC PRN - Other Health History Other Health History: NONE - Chronic Pain History Chronic Pain: Yes (LEFT HIP PAIN AND RADIATES TO LEFT KNEE) - Surgical History Prior Surgeries: CATARACT SURGERIES IN 2011 AND 2012. 1996 LUNG BIOPSY WAS BENIGN ANE Review of Systems Review of systems is: negative Review of Systems: ANE Patient History - Allergies Allergies/Adverse Reactions: Penicillins Allergy (Verified 08/02/11 08:34) Hives - Home Medications Home medications: home medication list seen and reviewed Home Medications: Ascorbic Acid [Vitamin C 250 mg (*)] 250 mg PO DAILY 09/13/17 [Last Taken Unknown] Aspirin EC [Aspirin EC 81 mg (*)] 81 mg PO HS 09/13/17 [Last Taken 09/12/17] Atorvastatin Calcium [Lipitor 40 mg (*)] 40 mg PO HS 09/13/17 [Last Taken ] Calcium Carbonate [Oyster Shell Calcium 500 mg (*)] 500 mg PO DAILY 09/13/17 [ Last Taken 09/12/17] Cholecalciferol Vit D3 [Vitamin D3 (*)] 1,000 units PO DAILY 09/13/17 [Last Taken 09/12/17] Multivitamins [Multivitamin (*)] 1 each PO DAILY 09/13/17 [Last Taken Unknown] [place]-3 Fatty Acids [Fish Oil 1000 mg (*)] 1,000 mg PO DAILY 09/13/17 [Last Taken 09/12/17] - NPO status NPO Status: no food or drink >8 hours - Anes Hx Anes Hx: no prior problems - Smoking Hx Smoking Status: Former smoker - Family Anes Hx Family Hx Anesthesia Complications: NONE ANE Labs/Vital Signs - Labs Result Diagrams: 09/15/17 03:20 09/15/17 03:20 - Vital Signs Blood Pressure: 155/71 Heart Rate: 59 Respiratory Rate: 19 O2 Sat (%): 96 Height: 167.64 cm Weight: 79.379 kg ANE Physical Exam - Airway Neck exam: FROM Mallampati Score: Class 2 Mouth exam: normal dental/mouth exam - Pulmonary Pulmonary: no respiratory distress - Cardiovascular Cardiovascular: regular rate and rhythym - ASA Status ASA Status: III ANE Anesthesia Plan Anesthesia Plan: MAC
--- NOTE | 2017-09-15 14:36 | PDHPUP ---
History & Physical Update H&P update statement: This history and physical update is based on an assessment of the patient which was completed after admission or registration (within 24 hours), but prior to the surgery/procedure. H&P update: H&P reviewed & patient examined, no change in patient's condition since H&P completed
--- NOTE | 2017-09-15 15:07 | POSTANESTH ---
Post Anesthetic Evaluation Cardiovascular Status: Normal, Stable Respiratory Status: Normal, Stable Level of Consciousness/Mental Status: Can Participate in Eval, Mildly Sleepy, Arousable Pain Control: Adequate, Prn Tx Ordered Nausea/Vomiting Control: Adequate, Prn Tx Ordered Complications Possibly Related to Anesthesia: None Noted
--- NOTE | 2017-09-15 15:16 | HOSPPROG ---
Hospitalist Progress Note Assessment/Plan: Assessment & plan # Strep galloylytica bacteremia. Continue Ceftriaxone. Rpt BCxs NGTD. Discussed with ID. -LEOBARDO today neg for vegetation -tumor markers sent by ID as this organism can be associated with colon malignancy -abd/pelvis CT today # Acute hypoxic respiratory failure- 2 LPM, CXR c/w bronchitis -wean O2 as able # Right humerus bone findings- shoulder x-ray showed ossified loose bodies in the right shoulder region. No e/o osteomyelitis. Chronic issue. # Transaminitis- Resolved. RUQ u/s unrevealing. # Aortic stenosis patient is status post bioprosthetic aortic valve replacement. -LEOBARDO neg as above # Atrial fibrillation- One prior episode of atrial fibrillation after her aortic valve surgery. She has not had any known recurrence. -continue telemetry monitoring -cont ASA # Hyperlipidemia-continue current atorvastatin. # DVT prophylaxis-continue current Lovenox. # Disposition-continue work with physical therapy and occupational therapy while she is here in the hospital. I would anticipate she would be able to return back to her home once medically cleared. Subjective: Pt is tired. Denies abdominal pain, N/V today, but has apparently had intermittent N/V over past several weeks, along with 12 lb weight loss. No fevers. Overall feels better and wishes to eat (NPO for LEOBARDO) Objective: Vital Signs Temp Pulse Resp BP Pulse Ox 37.0 C 59 L 19 155/71 H 96 09/15/17 12:00 09/15/17 14:30 09/15/17 14:30 09/15/17 14:30 09/15/17 14:30 Microbiology 09/13/17 12:51 Blood Culture - Final Blood Streptococcus Galloylyticus Laboratory Results 09/15/17 03:20 09/15/17 03:20 09/14/17 09/15/17 09/16/17 05:59 05:59 05:59 Intake Total 1380 2615 Output Total 2100 2600 550 Balance -720 15 -550 PT 15.5 SEC (12.0-15.0) H 09/13/17 12:51 INR 1.21 (0.83-1.16) H 09/13/17 12:51 - Physical Exam Constitutional: no apparent distress Eyes: PERRL Ears, Nose, Mouth, Throat: moist mucous membranes Cardiovascular: regular rate and rhythym Respiratory: no respiratory distress Gastrointestinal: normoactive bowel sounds, soft, non-tender abdomen Skin: warm Musculoskeletal: full muscle strength Neurologic: AAOx3 Psychiatric: interacting appropriately ICD10 Worksheet Patient Problems: Problems Problem Status Onset Endocarditis Acute Aortic valvar stenosis Acute Atrial fibrillation Acute CVA (cerebral vascular accident) Acute Facial weakness Acute Osteoarthritis of hip Acute
--- NOTE | 2017-09-15 17:14 | ECHO ---
[email or web address] [address] [address] Main: [phone] Fax: Transesophageal Echocardiography Name: HORTENCIA CUNNINGHAM MR#: [id number] Study Date: 09/15/2017 Study Time: 02:10 PM Date of : 1935 Age: 82 year(s) Height: 167.6 cm (66 in.) Weight: 79.38 kg (175 lb.) BSA: 1.89 m2 Gender: Female Examination: LEOBARDO Indication: Positive blood cultures/R/O vegetation Image Quality: Contrast: Requested by: Dani Davis Heart Rate: Rhythm: BP: 163 mmHg/70 mmHg Procedure Staff Embroidery Worker: Pat Mosher [facility] Reading Physician: Dora Ruiz MD Requesting Provider: Kam James LEOBARDO Exam Details Conclusions: Normal global systolic LV function. An agitated saline study was performed and was negative for intracardiac shunting. No thrombus in left appendage. There is mild thickening of the mitral valve leaflets. Mild to moderate mitral regurgitation. There is no mitral valve vegetation. There is no aortic valve vegetation. The aortic valve is a bioprosthesis. No tricuspid valve vegetation. Mild descending aorta plaque visualized.. Measurements: Chambers Valvular Assessment AV/MV Valvular Assessment TV/PV Normal Normal Normal Name Value Range Name Value Range Name Value Range Additional Measurements: Findings: Left Ventricle: Normal global systolic LV function. Left Atrium: An agitated saline study was performed and was negative for intracardiac shunting. Patient: HORTENCIA CUNNINGHAM Study Date: 09/15/2017 Page 1 of 2 02:10 PM Left Atrial Appendage: No thrombus in left appendage. Mitral Valve: There is mild thickening of the mitral valve leaflets. Mild to moderate mitral regurgitation. There is no mitral valve vegetation. Aortic Valve: There is no aortic valve vegetation. The aortic valve is a bioprosthesis. Tricuspid Valve: No tricuspid valve vegetation. Aorta: Mild descending aorta plaque visualized.. Exam Comments: Coronary sinus flow visualized.. l1n (No Signature Object) Patient: HORTENCIA CUNNINGHAM Study Date: 09/15/2017 Page 2 of 2 02:10 PM [id number]
[2017-09-15] MEDS ORDERED: IOPAMIDOL (ISOVUE-300) 100 ML BTL ONE (17:22)
[2017-09-15] MEDS ORDERED: ONDANSETRON 4 MG/2 ML VIAL IVP PRN (20:08)
[2017-09-15] MEDS: ATORVASTATIN CALCIUM 40 MG TAB PO SCH (21:30)
[2017-09-15] MEDS: ASPIRIN EC 81 MG TAB PO SCH (21:30)
[2017-09-16 04:31] LABS: PLATELET COUNT 248 10^3/uL (150-400)
[2017-09-16] MEDS: NS 1,000 ML IV SCH (06:10)
--- NOTE | 2017-09-16 08:35 | HOSPPROG ---
Hospitalist Progress Note Assessment/Plan: Assessment & plan # Strep galloylytica bacteremia. LEOBARDO neg for vegetation. CT abd/pelvis unrevealing for source. Rpt BCxs NGTD x48 hrs. Discussed with ID. -Continue Ceftriaxone. -Likely proceed with PICC today, DOT per ID -tumor markers sent by ID are pending as this organism can be associated with colon malignancy -outpt colonoscopy # Acute hypoxic respiratory failure- resolved, now on room air. # Right humerus bone findings- shoulder x-ray showed ossified loose bodies in the right shoulder region. No e/o osteomyelitis. Chronic issue. # Transaminitis- Resolved. RUQ u/s unrevealing. # Aortic stenosis patient is status post bioprosthetic aortic valve replacement. -LEOBARDO neg as above # Atrial fibrillation- One prior episode of atrial fibrillation after her aortic valve surgery. She has not had any known recurrence. -continue telemetry monitoring -cont ASA # Hyperlipidemia-continue atorvastatin. # DVT prophylaxis- Lovenox. # Disposition- Cont PT/OT, likely d/c home tomorrow Subjective: Pt feels better. Appetite good. No fevers/chills. Getting stronger. No abdominal pain, N/V. Objective: Vital Signs Temp Pulse Resp BP Pulse Ox 36.6 C 70 19 159/96 H 92 09/16/17 07:34 09/16/17 07:34 09/16/17 07:34 09/16/17 07:34 09/16/17 07:34 Microbiology 09/13/17 12:51 Blood Culture - Final Blood Streptococcus Galloylyticus Laboratory Results 09/16/17 03:09 09/16/17 03:09 09/15/17 09/16/17 09/17/17 05:59 05:59 05:59 Intake Total 2615 3569 Output Total 2600 3050 Balance 15 519 PT 15.5 SEC (12.0-15.0) H 09/13/17 12:51 INR 1.21 (0.83-1.16) H 09/13/17 12:51 - Physical Exam Constitutional: no apparent distress Eyes: PERRL Ears, Nose, Mouth, Throat: moist mucous membranes Cardiovascular: regular rate and rhythym, systolic murmur Respiratory: no respiratory distress, clear to auscultation Gastrointestinal: normoactive bowel sounds, soft, non-tender abdomen Skin: warm Musculoskeletal: full muscle strength Neurologic: AAOx3 Psychiatric: interacting appropriately ICD10 Worksheet Patient Problems: Problems Problem Status Onset Endocarditis Acute Aortic valvar stenosis Acute Atrial fibrillation Acute CVA (cerebral vascular accident) Acute Facial weakness Acute Osteoarthritis of hip Acute
[2017-09-16] MEDS: ENOXAPARIN 40 MG/0.4 ML SYR SC SCH (09:19)
[2017-09-16] MEDS: cefTRIAXone 2 GM in STERILE WATER INJ 20 ML IV SCH (09:19)
[2017-09-16] MEDS ORDERED: ALTEPLASE 2 MG VIAL IVP PRN (10:33)
--- NOTE | 2017-09-16 10:40 | PDIAF ---
- Diagnosis Diagnosis: S. bovis bacteremia Code Status: Full Code - Medication Management Discharge Medications: Medications to Continue on Transfer Ascorbic Acid [Vitamin C 250 mg (*)] 250 mg PO DAILY 09/13/17 [Last Taken Unknown] Aspirin EC [Aspirin EC 81 mg (*)] 81 mg PO HS 09/13/17 [Last Taken 09/12/17] Atorvastatin Calcium [Lipitor 40 mg (*)] 40 mg PO HS 09/13/17 [Last Taken ] Calcium Carbonate [Oyster Shell Calcium 500 mg (*)] 500 mg PO DAILY 09/13/17 [ Last Taken 09/12/17] Cholecalciferol Vit D3 [Vitamin D3 (*)] 1,000 units PO DAILY 09/13/17 [Last Taken 09/12/17] Multivitamins [Multivitamin (*)] 1 each PO DAILY 09/13/17 [Last Taken Unknown] Martin-3 Fatty Acids [Fish Oil 1000 mg (*)] 1,000 mg PO DAILY 09/13/17 [Last Taken 09/12/17] Retirement Antibiotics: ceftriaxone 2gm IV daily [employer] Antibiotic Stop Date: 09/26/17 Discharge Medications: Refer to the Discharge Home Medication list for PRN reason. PICC Care - Routine: Yes - Orders Services needed: Home Care, Registered Nurse Home Care Face to Face: I certify that this patient was under my care and that I had the required [id number] encounter meeting the encounter requirements on the discharge day. My findings support the fact that the patient is homebound as defined in Home Care Face to Face Continued: CMS Chapter 7 Medicare Benefits Manual 30.1.1 , The condition of the patient is such that there exists a normal inability to leave home and consequently, leaving home would require a considerable and taxing effort. Isolation Type: None - Labs/Radiology CBC w/diff Date: 09/22/17 (weekly, Friday) CMP Date: 09/22/17 (weekly, Friday) - Follow Up Care Current Providers and Referrals: Sheila Hoff MD [Primary Care Provider] - As per Instructions Christina Dodge MD [Medical Doctor] - 09/25/17 10:30 am
--- NOTE | 2017-09-16 10:44 | PCMIDPN ---
Assessment/Plan: Streptococcal Galloylyticus bacteremia (formerly S Bovis). TTE did not demonstrate alek endocarditis but patient with underlying bovine AV. Source not clear but today patient added that L upper tooth hurt during illness but not before and not now. CT negative --continue ceftriaxone --PICC today --dc on ceftriaxone, see interagency --dental follow up and colonoscopy as outpatient with Dr Pelletier, I called and let him know meds Ceftriaxone 2gm IV qD #4 Micro 09/14 blood cx 2 sets: NGTD 09/13 blood cx 1 set: NGTD 09/12 blood cx 2 set : Streptococcal Galloylyticus 09/13 blood cx 1/2: streptococcus (second set collected after blood cx) Subjective: patient feeling better wants to go home Objective: Vital Signs Temp Pulse Resp BP Pulse Ox 36.6 C 70 19 159/96 H 92 09/16/17 07:34 09/16/17 07:34 09/16/17 07:34 09/16/17 07:34 09/16/17 09:30 Microbiology 09/13/17 12:51 Blood Culture - Final Blood Streptococcus Galloylyticus Laboratory Results 09/16/17 03:09 09/16/17 03:09 09/15/17 09/16/17 09/17/17 05:59 05:59 05:59 Intake Total 2615 3569 Output Total 2600 3050 Balance 15 519 ESR 108 MM/HR (0-30) H 09/14/17 03:50 C-Reactive Protein 61.2 mg/L (<10.0) H 09/14/17 03:50 - Physical Exam General Appearance: alert EENT: No scleral icterus Respiratory: lungs clear, No accessory muscle use Cardiac/Chest: regular rate, rhythm, systolic murmur (much less prominent than admit) Extremities: No pedal edema Abdomen: non-tender, soft Skin: No rash Neuro/Psych: alert, normal mood/affect, oriented x 3 - Time Spent With Patient Time Spent with Patient: greater than 35 minutes Time Spent with Patient: Greater than 35 minutes spent on this patients care, greater than 50% of time spent counseling, educating, and coordinating care regarding the above mentioned plan. ICD10 Worksheet Patient Problems: Problems Problem Status Onset Aortic valvar stenosis Acute Atrial fibrillation Acute CVA (cerebral vascular accident) Acute Endocarditis Acute Facial weakness Acute Osteoarthritis of hip Acute
[2017-09-16 11:58] VITALS: BP 165/80
--- NOTE | 2017-09-16 14:25 | ASMTLACE ---
JESSICAE Length of stay for Answers: 3 days current admission Acuity / Level of Answers: Yes Care: Did the patient have an inpatient admission? Comorbidities - select Answers: Chronic pulmonary disease all that apply Coronary Artery Disease Other Notes: h/o bells palsy, HTN, hperlipidem ia, recurrent UTI # of Emergency department Answers: 1-2 visits in the last 6 months Score: 12 Date Signed: 09/16/2017 02:24 PM Electronically Signed By:Yana Dang RN
--- NOTE | 2017-09-16 15:40 | ASDISCHSUM ---
Discharge Information Plan Status:Home with Home Health Medically Cleared to Leave:09/16/2017 Discharge Date:09/16/2017 03:00 PM D/C Disposition:Home Health Service [facility] D/C Disposition:Home, Routine, Self-Care Projected Discharge Date:09/17/2017 11:00 AM Transportation at D/C:Family Discharge Delay Reason: Follow-Up Date:09/17/2017 11:00 AM Discharge Slot: Final Diagnosis: Placement Information Referral Type:*Home Health Care Services Referral ID:[id number] Provider Name:[facility] Address [address] Address 2: City:[place] Selection Factors: State:[place] Referral Type:Home Infusion Referral ID:[id number] Provider Name:[facility] Address 1:[address] Address 2: City:[place] Selection Factors: State:[place] Patient Contact Information Contact Name:BENEDICT Relationship: Address:[address] City:[place] Alternate Phone: [facility]/Zip Code:[place] [address] Email: Financial Information Financial Class:Medicare Advantage Plans Primary Plan Desc:ASHELY MEDICARE ADV Primary Plan Number:[id number] Secondary Plan Desc: Secondary Plan Number: Assessment Information LACE LACE Length of stay for Answers: 3 days current admission Acuity / Level of Answers: Yes Care: Did the patient have an inpatient admission? Comorbidities - select Answers: Chronic pulmonary disease all that apply Coronary Artery Disease Other Notes: h/o bells palsy, HTN, hperlipidem ia, recurrent UTI # of Emergency department Answers: 1-2 visits in the last 6 months Score: 12 Date Signed: 09/16/2017 02:24 PM Electronically Signed By:Yana Dang RN [facility] CM Progress Note CM Note CM Note Notes: 09/14/2017 Case Management Note Met w/pt, daughter Mala [phone] and granddaughter Joy. Pt Biju can be reached on the home phone. Pt son Aramis [phone]. Pt lives with Mala and Joy. Aramis lives next door with his . Pt is driving and has no trouble obtaining groceries. There are no case management needs from PT. Case management will follow to assess for d/c IV antibiotic needs. Case Management d/c poc: to be determined. Date Signed: 09/14/2017 04:20 PM Electronically Signed By:Yana Dang RN Case Management Discharge Plan Note Case Management Discharge Discharge Order Complete? Answers: Yes Patient to Obtain Answers: via Family Medications Transportation Arranged Answers: Family/Friends Faxed Final Orders Answers: Yes Notes: to [facility] and [facility] Family Notified Answers: Yes Notes: in room Discharge Comments Notes: 09/16/2017 Case Management Note Pt to d/c with [facility] and [facility] for infusion. [facility] to cost $25/week. Family to transport home. Faxed final orders. Date Signed: 09/16/2017 02:24 PM Electronically Signed By:Yana Dang RN Intervention Information Intervention Type:*IM-Signed Date of Service:09/16/2017 12:10 PM Patient Type:Inpatient Staff Member:Coby Bal Hours: Discipline: Severity: Comment:
--- NOTE | 2017-09-16 17:44 | GDS ---
[f rep st] DISCHARGE SUMMARY DISCHARGE DIAGNOSES: 1. Strep Galloylyticus bacteremia. 2. Acute hypoxemic respiratory failure, resolved. 3. Transaminitis, resolved. 4. Aortic stenosis, status post bioprosthetic aortic valve replacement. 5. Atrial fibrillation, isolated episode postoperatively after valve surgery without recurrence. 6. Hyperlipidemia. 7. Chronic right shoulder pain. CONSULTANTS: Christina Dodge MD, Infectious Disease. IMAGING STUDIES/PROCEDURES: 1. Transthoracic echocardiogram September 13, 2017, showed normal left ventricular systolic function wit h ejection fraction 65% to 70%, without clear evidence of vegetation. 2. Transesophageal echocardiogram performed September 15, 2017, was negative for any valve vegetations. 3. Shoulder x-ray September 13, 2017, showed ossified intra-articular loose bodies with severe osteoarth ritis of the AC and glenohumeral joint spaces and probable rotator cuff pathology. 4. Chest x-ray September 15, 2017, was negative for pneumonia or effusion, showed evidence of bronchitis . 5. Abdomen and pelvis CT September 15, 2017, showed no evidence for new or recurrent disease. 6. PICC line insertion September 16, 2017. HISTORY: For details, please see the history and physical dated September 13, 2017. In brief, Ms. uJanita gracia is an 82-year-old female with a history of aortic stenosis status post bioprosthetic aortic valv e replacement in 2014, hypertension, hyperlipidemia, and chronic hypoxemic respiratory failure on noc turnal oxygen, who presents to the emergency department with recurrent fever and chills. She was see n by her primary care provider and outpatient blood cultures were drawn which grew gram-positive cocc i in chains. She was then sent to the emergency department and admitted to the hospital for further management. HOSPITAL COURSE: The patient was admitted to the cardiac telemetry unit. Initial concern existed fo r endocarditis. An echocardiogram was performed with results above. There was no evidence of valve vegetation. She was treated with 2 g of IV ceftriaxone daily. Her fevers and chills resolved. Repe at blood cultures were ordered and remained negative to date. She underwent abdomen and pelvis CT, a s this organism can be associated with colon malignancy and she had reported some possible intermitte nt obstructive symptoms. However, there was no significant abnormalities identified on her CT scan. She should have an outpatient colonoscopy for further screening for colon cancer given her Strep Gal loylyticus bacteremia. She agrees to follow up with [facility] for outpatient c olonoscopy. Regarding her atrial fibrillation, there was just 1 event in the postop setting from her valve replacement surgery. She has not had recurrence. She was maintained on her aspirin therapy a s well as her statin. She did have some abnormal findings on her right shoulder x-ray which will req uire outpatient followup with her primary care and possible referral to Orthopedics. On the day of d ischarge, the patient remained hemodynamically stable. She has been afebrile for over 48 hours, and wishes to discharge home. DISPOSITION: Patient is discharged home in stable condition. FOLLOWUP: 1. Dr. Christina Dodge, [facility] for Infectious Disease, September 25, 2017, at 10:[address] Sheila Hoff, primary care. 3. Dr. Jose Carlos Tam, [facility] for outpatient colonoscopy. 4. Also consider referral to Orthopedics for her abnormalities seen on right shoulder films. DISCHARGE MEDICATIONS: Please see [employer] for completed outpatient medication list. New medication s on discharge include ceftriaxone 2 g IV daily through September 26, 2017. Continue all other outpatient medications as previously prescribed. /[id number]/MODL
== END 2017-09-16 15:00 | disposition home or self-care (01) | DRG 853 ==
LOC: F2W 13:45
PROVIDERS: ADMIT Internal Medicine; ATTEND Internal Medicine
PROC: B244ZZ4 Ultrasonography of Right Heart, Transesophageal (ICD-10-PCS; 2017-09-15)
PROC: 02HV3DZ Insertion of Intraluminal Device into Superior Vena Cava, Percutaneous Approach (ICD-10-PCS; principal; 2017-09-16)
DX: R78.81 Bacteremia (principal); J96.21 Acute and chronic respiratory failure with hypoxia; B95.4 Other streptococcus as the cause of diseases classified elsewhere; M19.011 Primary osteoarthritis, right shoulder; M24.011 Loose body in right shoulder; R74.0 Nonspecific elevation of levels of transaminase and lactic acid dehydrogenase [LDH]; E78.5 Hyperlipidemia, unspecified; G89.29 Other chronic pain; I10 Essential (primary) hypertension; Z88.0 Allergy status to penicillin; Z95.3 Presence of xenogenic heart valve; Z87.440 Personal history of urinary (tract) infections
CPT/HCPCS: 86301-90; 96374; 97116-GP; 97161-GP; C1751; G8978-GP-CI; G8979-GP-CI; G8980-GP-CI; J0461; J0696; J1650; J2405; J2550; J2704; Q9967

== ENCOUNTER 2017-09-17 03:14 | Observation (INO) | payer OTHER ==
--- NOTE | 2017-09-17 03:17 | EDPHY ---
H & P Time Seen by Provider: 09/17/17 03:17 HPI/ROS: HPI CHIEF COMPLAINT: Chest pain and fast heart rate HISTORY OF PRESENT ILLNESS: Patient is a very pleasant 82-year-old female she presents emergency room by private vehicle with chest pain. She states around 2 o'clock morning she got up to use the bathroom and developed substernal chest discomfort. She describes an aching sensation does not radiate anywhere. She does have some shortness of breath with it. She took her her pulse rate at home was 160 and she decided come the emergency room. Upon arrival to the emergency room she is complaining of substernal chest pain and fast heart rate her heart rate is noted to be in the 170s. She endorses substernal chest discomfort and shortness of breath. Denies syncope. Denies nausea or vomiting. She recently had a PICC line placed in the right arm she is due to get antibiotics. This was due to bacteremia she was discharged home from the hospital yesterday. She denies chills or fever. Past Medical History: Recent hospitalization and discharged yesterday, history bacteremia, hypoxic respiratory failure, transaminitis, aortic stenosis, AFib, hyperlipidemia bioprosthetic valve Past Surgical History: No recent surgical history Social History: Denies drugs alcohol tobacco. Lives locally. at bedside. Family History: Noncontributory ROS REVIEW OF SYSTEMS: A comprehensive 10 point review of systems is otherwise negative aside from elements mentioned in the history of present illness. Exam Constitutional triage nursing summary reviewed, vital signs reviewed, awake/ alert. Vital signs noted to be tachycardic in the 160s. Eyes normal conjunctivae and sclera, EOMI, PERRLA. HENT normal inspection, atraumatic, moist mucus membranes, no epistaxis, neck supple/ no meningismus, no raccoon eyes. Respiratory clear to auscultation bilaterally, normal breath sounds, no respiratory distress, no wheezing. Cardiovascular tachycardia, regular rhythm, no murmur, no edema, distal pulses normal. Gastrointestinal soft, non-tender, no rebound, no guarding, normal bowel sounds, no distension, no pulsatile mass. Genitourinary no CVA tenderness. Musculoskeletal pitting edema bilateral lower extremity, no midline vertebral tenderness, full range of motion, no calf swelling, no tenderness of extremities , no meningismus, good pulses, neurovascularly intact. Skin pink, warm, & dry, no rash, skin atraumatic. Neurologic awake, alert and oriented x 3, AAOx3, moves all 4 extremities equally, motor intact, sensory intact, CN II-XII intact, normal cerebellar, normal vision, normal speech. Psychiatric normal mood/affect. Heme/Lymph/Immune no lymphadenopathy. Differential diagnosis includes but is not limited to: Atrial fibrillation, SVT , other cardiac arrhythmia, V-tach, VFib ACS, atypical chest pain, pneumothorax , pneumonia, pulmonary embolism, aortic dissection, congestive heart failure, tumor, musculoskeletal pain, esophageal pain, GERD, peptic ulcer disease, pancreatitis Medical Decision Making: Plan for this patient will access her PICC line, should be placed on full certified professional midwife obtain EKG, gentle fluid bolus, if this is AFib will start on dull bolus Dilt drip. Chest x-ray, re-evaluate. Re-evaluation: EKG interpretation by me on record in [employer] system. Impression time of EKG 3:30 a.m., AFib with RVR, heart rate rate of [address] elevation no significant ST depression 0336: Patient in AFib with RVR complaining of chest discomfort. Patient will be given a dull bolus 50 mg of slow heart rate down and Dilt drip. We will closely monitor. ED x-ray chest one view this shows cardiomegaly bilateral pleural effusions. PICC line appears to be in appropriate position. No pneumothorax. X-rays change from her previous x-ray IUD day ago where she now has enlarged heart size and her pleural effusions appear to be worse. 0351: Patient was given 10 mg IV diltiazem current heart rate in the 120s much improved from the 170s upon arrival. Blood pressure stable 121/62. Pulse ox 93 % on room air. Patient being started on diltiazem drip she is still in AFib with RVR but much improved. Patient need to be admitted the hospital for AFib with RVR. 0409: Spoke with the hospitalist service Dr. Tarango, who agrees to admit this patient for AFib with RVR. Currently this time this patient is hemodynamically stable heart rate 1 110, blood pressure 94/75. Admit to the medicine service for AFib with RVR. Source: Patient, Old records - Medical/Surgical History Hx Asthma: No Hx Chronic Respiratory Disease: No Hx Diabetes: No Hx Cardiac Disease: No Hx Renal Disease: No Hx Cirrhosis: No Hx Alcoholism: No Hx HIV/AIDS: No Hx Splenectomy or Spleen Trauma: No Other PMH: HTN, HYPERLIPIDEMIA, aortic valve replacement, lt tka, lt mert, rt lower lobectomy, RADHIKA - Social History Smoking Status: Former smoker Constitutional: Initial Vital Signs Temperature (C) 36.5 C 09/17/17 03:21 Heart Rate 167 H 09/17/17 03:21 Respiratory Rate 20 09/17/17 03:21 Blood Pressure 112/87 H 09/17/17 03:21 O2 Sat (%) 95 09/17/17 03:21 O2 Delivery Mode Room Air Allergies/Adverse Reactions: Penicillins Allergy (Verified 08/02/11 08:34) Hives Home Medications: Medication Instructions Recorded Ascorbic Acid [Vitamin C 250 mg 250 mg PO DAILY 09/13/17 (*)] Aspirin EC [Aspirin EC 81 mg (*)] 81 mg PO HS 09/13/17 Atorvastatin Calcium [Lipitor 40 40 mg PO HS 09/13/17 mg (*)] Calcium Carbonate [Oyster Shell 500 mg PO DAILY 09/13/17 Calcium 500 mg (*)] Cholecalciferol Vit D3 [Vitamin D3 1,000 units PO DAILY 09/13/17 (*)] Multivitamins [Multivitamin (*)] 1 each PO DAILY 09/13/17 [place]-3 Fatty Acids [Fish Oil 1000 1,000 mg PO DAILY 09/13/17 mg (*)] cefTRIAXone [Rocephin] 2 gm IV DAILY vial 09/16/17 Medical Decision Making - Data Points Laboratory Results: Laboratory Results 09/17/17 03:30 09/17/17 03:30 09/17/17 09/17/17 09/17/17 03:30 03:30 03:30 WBC 5.06 10^3/uL 10^3/uL (3.80-9.50) RBC 4.27 10^6/uL 10^6/uL (4.18-5.33) Hgb 12.5 g/dL L g/dL (12.6-16.3) Hct 36.1 % L % (38.0-47.0) MCV 84.5 fL fL (81.5-99.8) MCH 29.3 pg pg (27.9-34.1) MCHC 34.6 g/dL g/dL (32.4-36.7) RDW 14.6 % % (11.5-15.2) Plt Count 279 10^3/uL 10^3/uL (150-400) MPV 8.9 fL fL (8.7-11.7) Neut % (Auto) 45.2 % % (39.3-74.2) Lymph % (Auto) 36.4 % % (15.0-45.0) [place] % (Auto) 13.8 % H % (4.5-13.0) Eos % (Auto) 3.0 % % (0.6-7.6) Baso % (Auto) 1.2 % % (0.3-1.7) Nucleat RBC Rel Count 0.0 % % (0.0-0.2) Absolute Neuts (auto) 2.29 10^3/uL 10^3/uL (1.70-6.50) Absolute Lymphs (auto) 1.84 10^3/uL 10^3/uL (1.00-3.00) Absolute Monos (auto) 0.70 10^3/uL 10^3/uL (0.30-0.80) Absolute Eos (auto) 0.15 10^3/uL 10^3/uL (0.03-0.40) Absolute Basos (auto) 0.06 10^3/uL 10^3/uL (0.02-0.10) Absolute Nucleated RBC 0.00 10^3/uL 10^3/uL (0-0.01) Immature Gran % 0.4 % % (0.0-1.1) Immature Gran # 0.02 10^3/uL 10^3/uL (0.00-0.10) PT 14.8 SEC SEC (12.0-15.0) INR 1.14 (0.83-1.16) APTT 34.3 SEC SEC (23.0-38.0) Sodium 142 mEq/L mEq/L (135-145) Potassium 3.9 mEq/L mEq/L (3.5-5.2) Chloride 105 mEq/L mEq/L (97-110) Carbon Dioxide 25 mEq/l mEq/l (22-31) Anion Gap 12 mEq/L mEq/L (8-16) BUN 7 mg/dL mg/dL (7-23) Creatinine 0.6 mg/dL mg/dL (0.6-1.0) Estimated GFR > 60 Glucose 107 mg/dL H mg/dL (70-100) Calcium 8.8 mg/dL mg/dL (8.5-10.4) Magnesium 1.8 mg/dL mg/dL (1.6-2.3) Total Bilirubin 0.6 mg/dL mg/dL (0.1-1.4) Conjugated Bilirubin 0.4 mg/dL mg/dL (0.0-0.5) Unconjugated Bilirubin 0.2 mg/dL mg/dL (0.0-1.1) AST 72 IU/L H IU/L (14-46) ALT 65 IU/L H IU/L (9-52) Alkaline Phosphatase 109 IU/L IU/L (38-126) Creatine Kinase 30 IU/L IU/L (0-156) CK-MB (CK-2) Fraction Pending Troponin I Pending NT-Pro-B Natriuret Pep Pending Total Protein 6.9 g/dL g/dL (6.3-8.2) Albumin 3.3 g/dL L g/dL (3.5-5.0) Lipase 216 IU/L IU/L (23-300) Medications Given: Discontinued Medications Diltiazem HCl (Cardizem 25 Mg/5 Ml Vial) 15 mg IVP EDNOW ONE Stop: 09/17/17 03:34 Last Admin: 09/17/17 03:38 Dose: 15 mg Sodium Chloride (Ns) 1,000 mls @ 0 mls/hr IV EDNOW ONE; Wide Open PRN Reason: Protocol Stop: 09/17/17 03:19 Last Admin: 09/17/17 03:31 Dose: 1,000 mls Diltiazem HCl 125 mg/ Dextrose 125 mls @ 0 mls/hr IV EDNOW ONE; As Directed PRN Reason: Protocol Stop: 09/17/17 03:34 Last Admin: 09/17/17 03:53 Dose: Not Given Diltiazem/Dextrose (Diltiazem 125mg/125ml (Premix)) 125 mls @ 0 mls/hr IV EDNOW ONE; As Directed PRN Reason: Protocol Stop: 09/17/17 04:01 Last Admin: 09/17/17 03:51 Dose: 125 mls Departure - Departure Disposition: [facility] Inpatient Acute Clinical Impression: Chest pain Qualifiers: Chest pain type: unspecified Qualified Code(s): R07.9 - Chest pain, unspecified Atrial fibrillation Qualifiers: Atrial fibrillation type: unspecified Qualified Code(s): I48.91 - Unspecified atrial fibrillation Condition: Fair Referrals: Sheila Hoff MD [Primary Care Provider] - As per Instructions
[2017-09-17] MEDS ORDERED: NS 1,000 ML IV ONE (03:18)
--- NOTE | 2017-09-17 03:32 | CPEKG ---
Heart Rate: 162 RR Interval: 370 QRSD Interval: 80 QT Interval: 304 QTC Interval: 500 QRS [place]: 1 T Wave [place]: 80 EKG Severity - ABNORMAL ECG - EKG Impression: ATRIAL FIBRILLATION WITH RAPID V-RATE EKG Impression: PROBABLE LVH WITH SECONDARY REPOL ABNRM EKG Impression: ANTERIOR Q WAVES, POSSIBLY DUE TO LVH Electronically Signed By: Regino Kidd 17-Sep-2017 07:12:37
[2017-09-17] MEDS ORDERED: DILTIAZEM 125 MG in D5W 125 ML IV ONE (03:33)
[2017-09-17] MEDS ORDERED: DILTIAZEM 25 MG/5 ML VIAL IVP ONE (03:33)
[2017-09-17] MEDS ORDERED: DILTIAZEM 50 MG/10 ML VIAL IV ONE (03:37)
[2017-09-17 03:39] LABS: PLATELET COUNT 279 10^3/uL (150-400)
[2017-09-17 03:48] LABS: INR 1.14 (0.83-1.16); PROTIME(PATIENT) 14.8 SEC (12.0-15.0)
[2017-09-17] MEDS ORDERED: DILTIAZEM HCL/D5W 125 ML IV ONE (04:00)
[2017-09-17 04:08] LABS: CREATINE KINASE 30 IU/L (0-156)
[2017-09-17] MEDS ORDERED: ACETAMINOPHEN 325 MG TAB PO PRN (04:11)
[2017-09-17] MEDS ORDERED: ONDANSETRON DISINTEGRATING 4 MG TAB PO PRN (04:11)
[2017-09-17] MEDS ORDERED: ONDANSETRON 4 MG/2 ML VIAL IVP PRN (04:11)
[2017-09-17] MEDS ORDERED: DILTIAZEM HCL/D5W 125 ML IV SCH (04:15)
--- NOTE | 2017-09-17 04:33 | PDGENHP ---
History and Physical - Chief Complaint Fast heart rate - History of Present Illness 82 yo F w/ hx of s/p bAVR and recent discharge after treatment for S. gallolyticus bacteremia presents with fast heart rate. Patient was discharged on 09/16 after presenting with sepsis and found to have S. gallolyticus bacteremia. She was discharged with CTX therapy. She woke up at 2 AM to use the bathroom and noticed that her heart was racing. She checked her pulse and found it to be >160, so she came to the ED. In the ED, ECG confirmed AF w/ RVR. She was started on diltiazem gtt and planned for admission to PCU. Of note, she has had isolated episode of AF after valve surgery but had not had recurrence until today. She is not in anticoagulation or rate controlling agents. History Information - Allergies/Home Medication List Allergies/Adverse Reactions: Penicillins Allergy (Verified 08/02/11 08:34) Hives Home Medications: Ascorbic Acid [Vitamin C 250 mg (*)] 250 mg PO DAILY 09/13/17 [Last Taken Unknown] Aspirin EC [Aspirin EC 81 mg (*)] 81 mg PO HS 09/13/17 [Last Taken 09/12/17] Atorvastatin Calcium [Lipitor 40 mg (*)] 40 mg PO HS 09/13/17 [Last Taken ] Calcium Carbonate [Oyster Shell Calcium 500 mg (*)] 500 mg PO DAILY 09/13/17 [ Last Taken 09/12/17] Cholecalciferol Vit D3 [Vitamin D3 (*)] 1,000 units PO DAILY 09/13/17 [Last Taken 09/12/17] Multivitamins [Multivitamin (*)] 1 each PO DAILY 09/13/17 [Last Taken Unknown] [place]-3 Fatty Acids [Fish Oil 1000 mg (*)] 1,000 mg PO DAILY 09/13/17 [Last Taken 09/12/17] I have personally reviewed and updated: family history, medical history - Past Medical History atrial fibrillation, hypertension Additional medical history: s/p bAVR in 2014. Pulmonary hypertension - Surgical History Additional surgical history: bAVR in 2015. TKA - Family History Positive for: cancer - Social History Smoking Status: Former smoker Review of Systems Review of Systems: ROS: 10pt was reviewed & negative except for what was stated in HPI & below Physical Exam Physical Exam: Temp Pulse Resp BP Pulse Ox 36.5 C 125 H 20 144/96 H 94 09/17/17 03:21 09/17/17 04:12 09/17/17 04:12 09/17/17 04:12 09/17/17 04:12 Constitutional: no apparent distress, not in pain Eyes: PERRL, EOMI Ears, Nose, Mouth, Throat: moist mucous membranes, no oral mucosal ulcers Cardiovascular: no murmur, rub, or gallop, irregularly irregular, tachycardia Respiratory: no respiratory distress Gastrointestinal: normoactive bowel sounds, soft, non-tender abdomen Skin: warm, normal color Musculoskeletal: full muscle strength, no muscle tenderness Neurologic: AAOx3, CN II-XII Intact Psychiatric: interacting appropriately, not anxious Lab Data & Imaging Review 09/17/17 03:30 09/17/17 03:30 WBC 5.06 10^3/uL (3.80-9.50) 09/17/17 03:30 RBC 4.27 10^6/uL (4.18-5.33) 09/17/17 03:30 Hgb 12.5 g/dL (12.6-16.3) L 09/17/17 03:30 Hct 36.1 % (38.0-47.0) L 09/17/17 03:30 MCV 84.5 fL (81.5-99.8) 09/17/17 03:30 MCH 29.3 pg (27.9-34.1) 09/17/17 03:30 MCHC 34.6 g/dL (32.4-36.7) 09/17/17 03:30 RDW 14.6 % (11.5-15.2) 09/17/17 03:30 Plt Count 279 10^3/uL (150-400) 09/17/17 03:30 MPV 8.9 fL (8.7-11.7) 09/17/17 03:30 Neut % (Auto) 45.2 % (39.3-74.2) 09/17/17 03:30 Lymph % (Auto) 36.4 % (15.0-45.0) 09/17/17 03:30 [place] % (Auto) 13.8 % (4.5-13.0) H 09/17/17 03:30 Eos % (Auto) 3.0 % (0.6-7.6) 09/17/17 03:30 Baso % (Auto) 1.2 % (0.3-1.7) 09/17/17 03:30 Nucleat RBC Rel Count 0.0 % (0.0-0.2) 09/17/17 03:30 Absolute Neuts (auto) 2.29 10^3/uL (1.70-6.50) 09/17/17 03:30 Absolute Lymphs (auto) 1.84 10^3/uL (1.00-3.00) 09/17/17 03:30 Absolute Monos (auto) 0.70 10^3/uL (0.30-0.80) 09/17/17 03:30 Absolute Eos (auto) 0.15 10^3/uL (0.03-0.40) 09/17/17 03:30 Absolute Basos (auto) 0.06 10^3/uL (0.02-0.10) 09/17/17 03:30 Absolute Nucleated RBC 0.00 10^3/uL (0-0.01) 09/17/17 03:30 Immature Gran % 0.4 % (0.0-1.1) 09/17/17 03:30 Immature Gran # 0.02 10^3/uL (0.00-0.10) 09/17/17 03:30 PT 14.8 SEC (12.0-15.0) 09/17/17 03:30 INR 1.14 (0.83-1.16) 09/17/17 03:30 APTT 34.3 SEC (23.0-38.0) 09/17/17 03:30 Sodium 142 mEq/L (135-145) 09/17/17 03:30 Potassium 3.9 mEq/L (3.5-5.2) 09/17/17 03:30 Chloride 105 mEq/L (97-110) 09/17/17 03:30 Carbon Dioxide 25 mEq/l (22-31) 09/17/17 03:30 Anion Gap 12 mEq/L (8-16) 09/17/17 03:30 BUN 7 mg/dL (7-23) 09/17/17 03:30 Creatinine 0.6 mg/dL (0.6-1.0) 09/17/17 03:30 Estimated GFR > 60 09/17/17 03:30 Glucose 107 mg/dL (70-100) H 09/17/17 03:30 Calcium 8.8 mg/dL (8.5-10.4) 09/17/17 03:30 Magnesium 1.8 mg/dL (1.6-2.3) 09/17/17 03:30 Total Bilirubin 0.6 mg/dL (0.1-1.4) 09/17/17 03:30 Conjugated Bilirubin 0.4 mg/dL (0.0-0.5) 09/17/17 03:30 Unconjugated Bilirubin 0.2 mg/dL (0.0-1.1) 09/17/17 03:30 AST 72 IU/L (14-46) H 09/17/17 03:30 ALT 65 IU/L (9-52) H 09/17/17 03:30 Alkaline Phosphatase 109 IU/L (38-126) 09/17/17 03:30 Creatine Kinase 30 IU/L (0-156) 09/17/17 03:30 CK-MB (CK-2) Fraction 0.78 ng/mL (0.00-3.19) 09/17/17 03:30 Troponin I < 0.012 ng/mL (0.000-0.034) 09/17/17 03:30 NT-Pro-B Natriuret Pep 1420 pg/mL (0-450) H 09/17/17 03:30 Total Protein 6.9 g/dL (6.3-8.2) 09/17/17 03:30 Albumin 3.3 g/dL (3.5-5.0) L 09/17/17 03:30 Lipase 216 IU/L (23-300) 09/17/17 03:30 Visualized and Interpreted EKG results: Yes EKG Interpretation: Positive for: other (AF w/ RVR) Assessment & Plan Assessment: 82 yo F w/ hx of s/p bAVR, recent admission for S. gallolyticus bacteremia, and prior single episode of AF presents w/ AF w/ RVR. Plan: 1. AF w/ RVR - Presenting with HR in the 160's; does have prior history of isolated AF episode after valve surgery in 2014. She is not on anticoagulation or rate controlling agents as an outpatient. [id number] of 4, denoting 4%/yr stroke risk. - Admit to PCU - Diltiazem gtt for rate control - On ASA, consider anticoagulation 2. S. gallolyticus bacteremia - Continue CTX 2g IV daily. 09/14 blood cultures remain NGTD. 3. s/p bAVR - Surgery performed in 2014. Well functioning valve demonstrated on 09/13 TTE. 4. CHRF - On 2 L/min O2 nocturnally. Diet - Regular Code - Full Ppx - LMWH Dispo - Admit to PCU under observation status
--- NOTE | 2017-09-17 08:44 | PDRADPN ---
Radiology Procedure Note Date of Procedure: 09/17/17 Radiologist: Sidney Henning Anesthesia: Local (Specify) Pre-op Diagnosis: infection Post-op Diagnosis: same Indication: venous access for abx Procedure: rue picc Finding(s): tip of cvc at cavoatrial junction, ok to use Inf/Abcess present in the surg proc area at time of surgery?: No EBL: Minimal Complications: no
[2017-09-17] MEDS: cefTRIAXone 2 GM in STERILE WATER INJ 20 ML IV SCH (08:55)
[2017-09-17] MEDS ORDERED: ENOXAPARIN 40 MG/0.4 ML SYR SC SCH (09:00)
--- NOTE | 2017-09-17 10:15 | CPEKG ---
Heart Rate: 52 RR Interval: 1154 QRSD Interval: 84 QT Interval: 476 QTC Interval: 443 QRS [place]: 6 T Wave [place]: 38 EKG Severity - ABNORMAL ECG - EKG Impression: ACCELERATED JUNCTIONAL ESCAPE RHYTHM Electronically Signed By: Hiro Allen 17-Sep-2017 11:12:40
--- NOTE | 2017-09-17 10:33 | ASMTCASEMG ---
Living Arrangements What is your living Answers: With Spouse arrangement? Who do you live with? Type Of Residence What kind of residence do Answers: House you live in? Discharge Plan Comments Coordination Status Comments Notes: Pt is a 82 y/o female admitted for a fast heart rate. Pt was recently here at [facility] and discharged on 09/16/17. Pt is receiving iv ceftriaxone. Pt is current w/ [facility] and [facility]. Referrals sent to both facilities. CM to follow. Plan: ASH PARRY with [facility] Date Signed: 09/17/2017 10:32 AM Electronically Signed By:CALDERON Brantley
[2017-09-17] MEDS: METOPROLOL TARTRATE 25 MG TAB PO SCH ×2 (13:27→20:30)
[2017-09-17] MEDS: APIXABAN 5 MG TAB PO SCH ×2 (13:27→20:30)
--- NOTE | 2017-09-17 13:58 | GCON ---
[f rep st] CONSULTATION CARDIOLOGY CONSULTATION DATE OF CONSULTATION: 09/17/2017 REFERRING PHYSICIAN: Jade Wahl MD We were asked by Dr. Jade Wahl of [facility] to evaluate the patient for atrial fibrillation with rapid ventricular rates. HPI: The patient is an 82-year-old female, with a past medical history of aortic stenosis, status post bioprosthetic atrial aortic valve replacement in 2014 at [facility], paroxysmal atrial fibrillation, dyslipidemia, hypertension, chronic hypoxic respiratory failure with nocturnal oxygen use, who was discharged yesterday after presenting with a Strep gallolyticus bacteremia. She was discharged with a PICC line and plans for IV ceftriaxone. That evening of her discharge to home, she felt poorly, describing it as feeling exhausted, and so she went to bed early that night. She fell asleep probably around 9 p.m. At 2 a.m., she woke up, and she said she felt "funny." She went to the restroom and then started to note that her heart was beating very hard and fast in her chest. With this, she noted associated chest pain. She describes it as a severe chest discomfort that was midsternal. She would have paroxysms of 2-3 minutes of pain and then relief for 2-3 minutes. No activity or position seem to worsen the discomfort. She denies any associated nausea, presyncope or diaphoresis. Overall, prior to her recent infection, she had been feeling well and independent with all her ADLs. In regard to her previous atrial fibrillation diagnosis, she had a bout of AFib 2 weeks after her bioprosthetic AVR. She was admitted and treated with amiodarone and direct current cardioversion. She has had no problems with AFib since then to her knowledge. PAST MEDICAL HISTORY: 1. Recent Strep gallolyticus bacteremia, currently on ceftriaxone. 2. Aortic valve stenosis status post bioprosthetic AVR in 2014. 3. Paroxysmal atrial fibrillation. 4. Left heart catheterization from 2015 showed no significant coronary artery disease, with mild luminal irregularities. 5. Dyslipidemia. 6. Hypertension. 7. Osteoarthritis. 8. Peptic ulcer disease. 9. Chronic hypoxic respiratory failure, on 2 L oxygen nocturnally. PAST SURGICAL HISTORY: 1. AVR. 2. Knee replacement. FAMILY HISTORY: Reviewed and noncontributory. SOCIAL HISTORY: Patient is , and her is at the bedside. She reports former tobacco. She denies any significant alcohol intake. OUTPATIENT MEDICATIONS: Include ceftriaxone, cholecalciferol, calcium, atorvastatin, aspirin, ascorbic acid, [place]-3 fatty acids, and multivitamin. ALLERGIES: Penicillins. PHYSICAL EXAMINATION: VITAL SIGNS: BP of 124/81, heart rate of 64, respirations 20, O2 saturation of 97% on 2 L/minute, temp of 98.1 degrees Fahrenheit. GENERAL: She is a very pleasant elderly female in no apparent distress. HEENT: Normocephalic, atraumatic. Eyes are without scleral icterus. NECK: Supple with no nuchal rigidity. No carotid bruit. HEART: Regular rate and rhythm with a 2/6 systolic ejection murmur. LUNGS: Clear to auscultation. ABDOMEN: Soft. Normoactive bowel sounds. No hepatosplenomegaly detected. : With no [place] present. SKIN: Warm and dry without any significant edema. PSYCH: Normal mood and affect. NEURO: No gross focal deficits detected. LABORATORY STUDIES: CBC with WBC 5.06, hemoglobin 12.5, hematocrit 36.1, platelet count 279, BMP with sodium 142, potassium 3.9, chloride 105, CO2 of 25 , BUN 7, creatinine 0.6, glucose 107. AST 72, ALT 65. NT proBNP of 1420. Troponin less than 0.012. A 12-lead ECG from 09/17/2017, personally interpreted , demonstrates junctional rhythm. A 09/17/2017 EKG from 3:30 a.m. shows atrial fibrillation with rapid ventricular rates. A 09/17/2017 chest x-ray showed bibasilar airspace opacities, likely atelectasis. IMPRESSION AND PLAN: The patient is an 82-year-old female who presents with atrial fibrillation with rapid ventricular response. 1. Atrial fibrillation with rapid ventricular response. This is in the setting of a recent infection for which she is still undergoing treatment currently. She has had some junctional rhythms with the diltiazem. This has been discontinued, and she will be started on metoprolol 12.5 p.o. b.i.d., with hopes of rate control and prevention of atrial fibrillation. Her CHADS-VASc is 5 with age, questionable history of hypertension,female sex, and her echo from her previous admission did show mild descending aortic plaquing. We would, therefore, recommend full anticoagulation. We reviewed options, and patient is agreeable to Eliquis therapy, as she has taken this in the past postcardioversion in 2015. She may discharge on both the metoprolol and Eliquis , and follow up with [facility] after 1-month monitor is done. If during that 1 month she has no further bouts of atrial fibrillation, likely her anticoagulation can be stopped, and her metoprolol either can be tapered or discontinued completely. 2. Chest pain. This was associated with atrial fibrillation with rapid ventricular response. Her 1st troponin is negative. Her EKG appears nonischemic, and she has had no further bouts of the pain since she arrived to the emergency department. Our plan will be to repeat a troponin and, if this is negative, then she may discharge to home today. If positive, then we will consider further testing. 3. Aortic valve disease, status post AVR. She had both a transthoracic and a LEOBARDO on her last admission. This shows normal functioning bioprosthetic AVR with normal ejection fraction. She may continue routine echocardiographic followups. /[id number]/MODL SUZANNE
--- NOTE | 2017-09-17 17:36 | HOSPPROG ---
Hospitalist Progress Note Assessment/Plan: 82 yo female with h/o bovine aortic valve replacement and chronic hypoxemia who was just admitted for treatment of strep bacteremia, returns to ED within 24 hrs of hospital discharge with rapid A fib. # A Fib w/ RVR - Had one prior event post-operatively after AVR. Was on ASA. Chads-vasc 4. Started on Dilt drip on admission, but developed bradycardia, ? wandering pacemaker. Now in NSR. Cardiology consulted. - D/C dilt, start oral metoprolol per cards recommendations - Eliquis for stroke prevention, discussed bleeding risk # S. gallolyticus bacteremia - Continue CTX 2g IV daily. 09/14 blood cultures remain NGTD. - Discharged just yesterday with plans for home infusion to complete atbx tx course # Aortic stenosis s/p bAVR - Surgery performed in 2014. Well functioning valve demonstrated on 09/13 TTE. 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 Diet - Regular Code - Full Ppx - LMWH Dispo - Obs. Likely d/c in am if no issues overnight. Subjective: Pt feels much better. Thinks her PICC placement irritated her heart , causing A fib, noting she didn't feel well yesterday after PICC placed prior to d/c home. Now denies CP, SOB or palpitations. No fevers/chills. Objective: Vital Signs Temp Pulse Resp BP Pulse Ox 36.7 C 64 16 112/67 96 09/17/17 15:48 09/17/17 15:48 09/17/17 15:48 09/17/17 15:48 09/17/17 15:48 09/16/17 09/17/17 09/18/17 05:59 05:59 05:59 Intake Total 1100 1430 Balance 1100 1430 PT 14.8 SEC (12.0-15.0) 09/17/17 03:30 INR 1.14 (0.83-1.16) 09/17/17 03:30 - Physical Exam Constitutional: no apparent distress Eyes: PERRL Ears, Nose, Mouth, Throat: moist mucous membranes Cardiovascular: regular rate and rhythym, systolic murmur Respiratory: no respiratory distress, clear to auscultation Gastrointestinal: normoactive bowel sounds, soft, non-tender abdomen Skin: warm Musculoskeletal: full muscle strength Neurologic: AAOx3 Psychiatric: interacting appropriately ICD10 Worksheet Patient Problems: Problems Problem Status Onset Atrial fibrillation Acute Chest pain Acute Aortic valvar stenosis Acute CVA (cerebral vascular accident) Acute Endocarditis Acute Facial weakness Acute Osteoarthritis of hip Acute
[2017-09-17] MEDS ORDERED: ATORVASTATIN CALCIUM 40 MG TAB PO SCH (21:00)
[2017-09-18 07:33] VITALS: BP 146/75
[2017-09-18] MEDS: METOPROLOL TARTRATE 25 MG TAB PO SCH (08:18)
[2017-09-18] MEDS: cefTRIAXone 2 GM in STERILE WATER INJ 20 ML IV SCH (08:19)
[2017-09-18] MEDS: APIXABAN 5 MG TAB PO SCH (08:19)
--- NOTE | 2017-09-18 09:54 | PDCARPN ---
Cardiology Progress Note Chief Complaint: Patient reports she would like to go home. Assessment/Plan: Assessment: 82-year-old female with past history of aortic stenosis, status post bioprosthetic aortic valve replacement in 2014 ([facility]), paroxysmal atrial fibrillation (prior to this hospitalization, only event happen 2 weeks postop AVR in which she was started on temporary amiodarone and cardioversion), dyslipidemia, hypertension, chronic hypoxic respiratory failure with nocturnal oxygen use, and recent diagnosis S. gallolyticus bacteremia ( hospital discharge 09/16/2017 with PICC line and daily antibiotics followed by IM). Admitted 1 day after hospital discharge for rapid heart rate with associated chest pressure, found to be in AFib with RVR. Started on IV diltiazem, with noted junctional rhythm. Converted back to sinus rhythm after discontinuing drip. More recently started on metoprolol tartrate at 12.5 mg p.o. twice daily. Also due to chads Vasc score of 5 (age, questionable history of hypertension, and sex), started on Eliquis for anticoagulation. LEOBARDO done on prior admission (09/13/2017) showed normal LV size, borderline concentric LVH, normal LV systolic function with EF 65-70%. Both atriums were normal size, mild MR, bioprosthetic aortic valve with peak gradient of 22 mm of mercury and mean gradient of 12 mm Hg, mild TR, trivial AL. Initial laboratories on admission showing elevated BNP at 1420, 2 troponin levels within normal. Today: Patient reports no further episodes of palpitations or fast heart rate. Reports no chest pain or pressures or symptoms suggesting of ischemia. Continues cardiac monitoring showing patient has maintained sinus rhythm with no malignant arrhythmia, any further runs of atrial fibrillation since yesterday morning, no significant pauses. Plan: 1. Atrial fibrillation with RVR: Patient currently in sinus rhythm. Patient with noted 1 other event happening 2 weeks postop AVR in 2014 requiring amiodarone and cardioversion. This event happened with ongoing bacteremia. Started on beta-shireen metoprolol tartrate, appears to be tolerating well. Have also been started on anticoagulation of Eliquis. She is scheduled to have a 30 day monitor liver to her house on discharged, in which we will evaluate her atrial fibrillation burden. She is scheduled for follow-up with Dr. George of electrophysiology Services after testing. 2. Chest pressure: Was associated with atrial fibrillation with RVR. She has had 2-troponins. EKG is nonischemic in appearance. Recent LEOBARDO showing no wall motion abnormality. She has had no further bouts of chest pressure or pain since hospitalization. We can consider further evaluation for risk assessment as an outpatient. 3. Valvular heart disease: Status post AVR. Recent LEOBARDO showing normal function of bioprosthetic AVR with normal EF. Continue monitoring in outpatient setting. 4. S. gallolyticus bacteremia: Continue on antibiotic therapy per hospital services and Infectious Disease.. Patient planning to be discharged this morning. Have discussed discharge instructions with her in follow-up. 09/18/17 09:51 Subjective: Patient denies of any chest pain or pressure. Reports no significant shortness of breath. Denies of any palpitations, lightheadedness, orthopnea, PND, near- syncope, or syncopal events. Reviewed/Discussed With: hospitalist, other (Dr Santos) Objective: Vital Signs (8 Hrs) Temp Pulse Resp BP Pulse Ox 09/18/17 07:30 36.8 C 63 12 146/75 H 97 09/18/17 04:00 37.0 C 61 16 148/71 H 92 Intake/Output (24 Hrs) 09/17/17 09/18/17 09/19/17 05:59 05:59 05:59 Intake Total 1100 1810 Balance 1100 1810 Intake: Oral (ml) 1810 IV Intake (ml) 0 IV Infused (ml) 1100 Other: Weight 80.7 kg Number of Voids 1 Toilet 2 Number of Stools Toilet 1 Result Diagrams: 09/17/17 03:30 09/17/17 03:30 Cardiac Labs: Cardiac Lab Results (72 Hrs) 09/17/17 13:20 Troponin I 0.021 - Physical Exam Constitutional: WDWN, healthy appearing, no apparent distress Ears, Nose, Mouth, Throat: moist mucous membranes Cardiovascular: regular rate and rhythm, no rubs, no gallops, systolic murmur ( Upper chest 1 to 2/6), pulses symmetric bilat, No jugular vein distention, No carotid bruit Peripheral Pulses: 1+: dorsalis-pedis (R), dorsalis-pedis (L), 2+: carotid (L) Respiratory: clear to auscultate bilat, no crackles, no wheezes, No reduced air movement Gastrointestinal: normoactive bowel sounds Skin: warm, no edema Neurologic: AAOx3 Psychiatric: cooperative, interactive, following commands ICD10 Worksheet Patient Problems: Problems Problem Status Onset Osteoarthritis of hip Acute Aortic valvar stenosis Acute Atrial fibrillation Acute Facial weakness Acute CVA (cerebral vascular accident) Acute Endocarditis Acute Chest pain Acute
--- NOTE | 2017-09-18 10:02 | PDIAF ---
- Diagnosis Code Status: Full Code - Medication Management Discharge Medications: Medications to Continue on Transfer Ascorbic Acid [Vitamin C 250 mg (*)] 250 mg PO DAILY 09/13/17 [Last Taken ] Atorvastatin Calcium [Lipitor 40 mg (*)] 40 mg PO HS 09/13/17 [Last Taken ] Calcium Carbonate [Oyster Shell Calcium 500 mg (*)] 500 mg PO DAILY 09/13/17 [ Last Taken 09/12/17] Cholecalciferol Vit D3 [Vitamin D3 (*)] 1,000 units PO DAILY 09/13/17 [Last Taken 09/12/17] Multivitamins [Multivitamin (*)] 1 each PO DAILY 09/13/17 [Last Taken 09/12/17] [place]-3 Fatty Acids [Fish Oil 1000 mg (*)] 1,000 mg PO DAILY 09/13/17 [Last Taken 09/12/17] cefTRIAXone [Rocephin] 2 gm IV DAILY vial 09/16/17 [Last Taken 09/16/17] Acetaminophen [Tylenol 325mg (*)] 650 mg PO Q4HRS PRN tab 09/18/17 [Last Taken Unknown] Apixaban [Eliquis] 5 mg PO BID #60 tab 09/18/17 [Last Taken Unknown] Metoprolol Tartrate [Lopressor 25 mg (*)] 12.5 mg PO BID #60 tab 09/18/17 [Last Taken Unknown] Discharge Medications: Refer to the Discharge Home Medication list for PRN reason. - Orders Services needed: Home Care, Registered Nurse Home Care Face to Face: I certify that this patient was under my care and that I had the required [id number] encounter meeting the encounter requirements on the discharge day. My findings support the fact that the patient is homebound as defined in Home Care Face to Face Continued: CMS Chapter 7 Medicare Benefits Manual 30.1.1 , The condition of the patient is such that there exists a normal inability to leave home and consequently, leaving home would require a considerable and taxing effort. Isolation Type: None - Follow Up Care Current Providers and Referrals: Shabbir George MD [Medical Doctor] - 10/17/17 10:00 am (Office has arranged for you to have a 30 day monitor. It will be sent year home. It should read arrived in the next 5 days. Please call [facility] if it does not arrived. You will follow up with Dr. George, physiotherapy assistant, October 17 at 10:00 a.m.. ) Shelia Hoff MD [Primary Care Provider] - As per Instructions
--- NOTE | 2017-09-18 10:02 | PDDCSUM ---
Discharge Summary Discharge Summary: Dates of service 09/17-09/18/2017 Consultations: cardiology Procedures performed: none Hospital course by problem: 82 yo female with h/o bovine aortic valve replacement and chronic hypoxemia who was just admitted for treatment of strep bacteremia, returns to ED within 24 hrs of hospital discharge with rapid A fib. # A Fib w/ RVR - Chads-vasc 5--was on asa, now placed on eliquis. Started on Dilt drip on admission, but developed bradycardia, now on oral metoprolol and has maintained NSR. Cardiology consulted. # S. gallolyticus bacteremia - Continue CTX 2g IV daily. 09/14 blood cultures remain NGTD. - Discharged just prior to readmission and will return to home health prior plan for continued home infusiong of ctx and to complete total course. # Aortic stenosis s/p bAVR - Surgery performed in 2014. Well functioning valve demonstrated on 09/13 TTE. # CHRF - On 2 L/min O2 nocturnally, no change from baseline Dc home f/u with cardiology > 35 min spent in dc of patient more than half in coordination of care
--- NOTE | 2017-09-18 13:44 | ASDISCHSUM ---
Discharge Information Plan Status:Home with Home Health Medically Cleared to Leave:09/18/2017 Discharge Date:09/18/2017 10:40 AM D/C Disposition: ADT D/C Disposition:Home Health Service Projected Discharge Date:09/18/2017 11:00 AM Transportation at D/C: Discharge Delay Reason: Follow-Up Date:09/18/2017 11:00 AM Discharge Slot: Final Diagnosis: Placement Information Referral Type:*Home Health Care Services Referral ID:[id number] Provider Name:[facility] Care Address 1[address] Address 2: City:[place] Selection Factors: State:[place] Referral Type:Home Infusion Referral ID:[id number] Provider Name:[facility] ([facility]) Address 1:[address] Address 2: City:[place] Selection Factors: State:[place] Patient Contact Information Contact Name:BENEDICT Relationship: Address:[address] City:[place] Alternate Phone: State/Zip Code:[place] [address] Email: Financial Information Financial Class:Medicare Advantage Plans Primary Plan Desc:ASHELY MEDICARE ADV Primary Plan Number:[id number] Secondary Plan Desc: Secondary Plan Number: Assessment Information [facility] Initial CM Assessment Living Arrangements What is your living Answers: With Spouse arrangement? Who do you live with? Type Of Residence What kind of residence do Answers: House you live in? Discharge Plan Comments Coordination Status Comments Notes: Pt is a 82 y/o female admitted for a fast heart rate. Pt was recently here at [facility] and discharged on 09/16/17. Pt is receiving iv ceftriaxone. Pt is current w/ [facility] and [facility]. Referrals sent to both facilities. CM to follow. Plan: ASH PARRY with [facility] Date Signed: 09/17/2017 10:32 AM Electronically Signed By:CALDERON Brantley Case Management Discharge Plan Note Case Management Discharge Discharge Order Complete? Answers: Yes Patient to Obtain Answers: via Family Medications Transportation Arranged Answers: Family/Friends EMTALA Complete Answers: No Case Management Transport Answers: No Form Complete Faxed Final Orders Answers: Yes Agency/Facility Transfer Answers: Yes Report Printed & Faxed to Receiving Agency Family Notified Answers: No Discharge Comments Notes: DANNI spke w/ ASH Sutherland regarding d/c POC. Pt is being discharged today. Pt will resume services w/ [facility] and [facility]. DANNI provided [facility] Sutherland w/ phone number to give report to [facility]. CM sent d/c orders to [facility]. CM notified [facility] of pts d/c. CM available for changes. Plan: ASH PARRY with [facility] Date Signed: 09/18/2017 10:52 AM Electronically Signed By:CALDERON Brantley Intervention Information Intervention Type:*SHARITA-Signed Date of Service:09/17/2017 09:59 AM Patient Type:Observation Staff Member:Coby Bal Hours: Discipline: Severity: Comment:
== END 2017-09-18 10:40 | disposition home health service (06) ==
LOC: F2W 05:03
PROVIDERS: ADMIT Student in an Organized Health Care Education/Training Program; ATTEND Internal Medicine
PROC: 3E033RZ Introduction of Antiarrhythmic into Peripheral Vein, Percutaneous Approach (ICD-10-PCS; principal; 2017-09-17)
DX: I48.91 Unspecified atrial fibrillation (principal); R07.89 Other chest pain; R78.81 Bacteremia; B95.4 Other streptococcus as the cause of diseases classified elsewhere; M19.011 Primary osteoarthritis, right shoulder; J96.11 Chronic respiratory failure with hypoxia; M24.011 Loose body in right shoulder; E78.5 Hyperlipidemia, unspecified; G89.29 Other chronic pain; I10 Essential (primary) hypertension; Z88.0 Allergy status to penicillin; Z95.3 Presence of xenogenic heart valve; Z87.440 Personal history of urinary (tract) infections; Z99.81 Dependence on supplemental oxygen
CPT/HCPCS: 71045; 93005; 96365; 96375; 99285; G0378; J0696; J1650

== ENCOUNTER 2017-09-22 15:14 | Emergency (ER) | payer OTHER ==
--- NOTE | 2017-09-22 15:34 | CPEKG ---
Heart Rate: 69 RR Interval: 870 P-R Interval: 164 QRSD Interval: 88 QT Interval: 420 QTC Interval: 450 P [place]w: 38 QRS [place]w: 6 T Wave [place]w: 69 EKG Severity - NORMAL ECG - EKG Impression: SINUS RHYTHM Electronically Signed By: Kelly Mendez 22-Sep-2017 20:35:41
--- NOTE | 2017-09-22 15:54 | EDPHY ---
H & P Time Seen by Provider: 09/22/17 15:30 HPI/ROS: CHIEF COMPLAINT: Shortness of breath and fatigue HISTORY OF PRESENT ILLNESS: 82-year-old female with history of atrial fibrillation on Eliquis and aortic valve replacement presents with shortness of breath and fatigue. Yesterday she noticed extreme fatigue with any exertion, including walking from her bedroom to the bathroom. Associated with shortness of breath. She does not feel short of breath at rest, only with exertion. no chest discomfort, diaphoresis or dizziness. No prior similar symptoms. She has not been ill recently. REVIEW OF SYSTEMS: Constitutional: No fever, no chills Eyes: No visual changes ENT: No sore throat Respiratory: No cough Cardiac: No chest pain Gastrointestinal: No nausea, no vomiting, no abdominal pain Genitourinary: no dysuria Musculoskeletal: No leg pain or swelling Skin: No rash Neurological: No headache Psychiatric: depression Past Medical/Surgical History: Atrial fibrillation Aortic valve replacement Social History: Smoking Status: Former smoker Physical Exam: General Appearance: Alert, pleasant Eyes: Pupils equal and round, no conjunctival pallor ENT, Mouth: Mucous membranes moist Neck: Normal inspection Respiratory: Lungs are clear to auscultation, no rales Cardiovascular: Regular rate and rhythm Gastrointestinal: Abdomen is soft and nontender Neurological: A&O, nonfocal exam Skin: Warm and dry, no rash Extremities: Nontender, no pedal edema Psychiatric: flat affect Constitutional: Initial Vital Signs Temperature (C) 36.9 C 09/22/17 15:17 Heart Rate 73 09/22/17 15:17 Respiratory Rate 20 09/22/17 15:17 Blood Pressure 152/70 H 09/22/17 15:17 O2 Sat (%) 90 L 09/22/17 15:17 O2 Delivery Mode Room Air Allergies/Adverse Reactions: Penicillins Allergy (Verified 09/23/17 13:44) Hives Home Medications: Medication Instructions Recorded Ascorbic Acid [Vitamin C 250 mg 250 mg PO DAILY 09/13/17 (*)] Atorvastatin Calcium [Lipitor 40 40 mg PO HS 09/13/17 mg (*)] Calcium Carbonate [Oyster Shell 500 mg PO DAILY 09/13/17 Calcium 500 mg (*)] Cholecalciferol Vit D3 [Vitamin D3 1,000 units PO DAILY 09/13/17 (*)] Multivitamins [Multivitamin (*)] 1 each PO DAILY 09/13/17 [place]-3 Fatty Acids [Fish Oil 1000 1,000 mg PO DAILY 09/13/17 mg (*)] cefTRIAXone [Rocephin] 2 gm IV DAILY vial 09/16/17 Acetaminophen [Tylenol 325mg (*)] 650 mg PO Q4HRS PRN tab 09/18/17 Apixaban [Eliquis] 5 mg PO BID #60 tab 09/18/17 Metoprolol Tartrate [Lopressor 25 12.5 mg PO BID #60 tab 09/18/17 mg (*)] Medical Decision Making - Diagnostics EKG Interpretation: EKG interpreted by me reveals normal sinus rhythm, rate 69, no ST or T segment changes. Interpretation: Normal EKG Imaging Results: Chest X-Ray 09/22/17 15:40 Impression: 1. Clear lungs. No acute process. 2. Stigmata of open heart surgery, unchanged. Chest/Thorax CTA 09/22/17 16:53 Impression: 1. Negative CT examination of the chest for acute pulmonary thromboembolic disease. 2. Moderate mediastinal lymphadenopathy, stable. 3. Cholelithiasis. Results called to Dr. Kelly Mendez at 5:50 PM, at the time of the interpretation. ED Course/Re-evaluation: This patient presents with shortness of breath and fatigue. Vital signs are normal including oxygen saturation. Stat EKG reveals no evidence of ischemia or dysrhythmia. Chest x-ray is unremarkable. D-dimer is elevated 1.22, CT pulmonary angiogram ordered and reveals no evidence of pulmonary embolism. The patient ambulated throughout the emergency department and maintained an oxygen saturation of 95% on room air. Upon re-evaluation, the patient states that she currently feels back to her normal baseline and is no longer feeling fatigued or short of breath. She would like to go home. I feel that she is safe and stable for discharge home. There is no evidence of a serious etiology for symptoms. Warning signs discussed. She will return to the emergency department if she develops recurrent symptoms or any concerns. Differential Diagnosis: Differential diagnosis includes though it is not limited to pneumonia, pneumothorax, pulmonary embolism, aortic dissection, pericarditis, acute coronary syndrome. - Data Points Laboratory Results: Laboratory Results 09/22/17 15:00 09/22/17 15:00 Medications Given: Discontinued Medications Acetaminophen (Tylenol 160mg/5ml Oral Liquid) 650 mg PO EDNOW ONE Stop: 09/22/17 17:52 Last Admin: 09/22/17 18:00 Dose: Not Given Acetaminophen (Tylenol) 650 mg PO EDNOW ONE Stop: 09/22/17 18:01 Last Admin: 09/22/17 18:01 Dose: 650 mg Departure - Departure Disposition: Home, Routine, Self-Care Clinical Impression: Fatigue, Dyspnea on exertion Condition: Good Instructions: Dyspnea (ED), Fatigue (ED) Referrals: Sheila Hoff MD [Primary Care Provider] - 1-2 days without fail
[2017-09-22 16:20] LABS: PLATELET COUNT 290 10^3/uL (150-400)
[2017-09-22] MEDS ORDERED: IOPAMIDOL (ISOVUE 370) 100 ML BTL IV ONE (16:59)
[2017-09-22] MEDS ORDERED: ACETAMINOPHEN 160 MG/5 ML UDCUP PO ONE (17:51)
[2017-09-22] MEDS ORDERED: ACETAMINOPHEN 325 MG TAB ONE (17:56)
[2017-09-22] MEDS ORDERED: ACETAMINOPHEN 325 MG TAB PO ONE (18:00)
[2017-09-22 18:37] VITALS: BP 139/71
== END 2017-09-22 18:36 | disposition home or self-care (01) ==
DX: R06.09 Other forms of dyspnea (principal); R53.83 Other fatigue; Z87.891 Personal history of nicotine dependence
CPT/HCPCS: 71046; 71275; 93005; 99285; Q9967

== ENCOUNTER 2017-09-23 13:38 | Emergency (ER) | payer OTHER ==
[2017-09-23 13:46] VITALS: BP 138/68; PULSE 71; RESP 18; TEMP 98.1; O2SAT 91
--- NOTE | 2017-09-23 13:53 | EDPHY ---
H & P Stated Complaint: clogged PICC line Time Seen by Provider: 09/23/17 13:53 - Personal History Tetanus Vaccine Date: < 10 years - Medical/Surgical History Hx Asthma: No Hx Chronic Respiratory Disease: No Hx Diabetes: No Hx Cardiac Disease: No Hx Renal Disease: No Hx Cirrhosis: No Hx Alcoholism: No Hx HIV/AIDS: No Hx Splenectomy or Spleen Trauma: No Other PMH: HTN, HYPERLIPIDEMIA, aortic valve replacement, lt tka, lt mert, rt lower lobectomy, RADHIKA - Social History Smoking Status: Former smoker Constitutional: Initial Vital Signs Temperature (C) 36.7 C 09/23/17 13:44 Heart Rate 71 09/23/17 13:44 Respiratory Rate 18 09/23/17 13:44 Blood Pressure 138/68 H 09/23/17 13:44 O2 Sat (%) 91 L 09/23/17 13:44 O2 Delivery Mode Room Air Allergies/Adverse Reactions: Penicillins Allergy (Verified 09/23/17 13:44) Hives Home Medications: Medication Instructions Recorded Ascorbic Acid [Vitamin C 250 mg 250 mg PO DAILY 09/13/17 (*)] Atorvastatin Calcium [Lipitor 40 40 mg PO HS 09/13/17 mg (*)] Calcium Carbonate [Oyster Shell 500 mg PO DAILY 09/13/17 Calcium 500 mg (*)] Cholecalciferol Vit D3 [Vitamin D3 1,000 units PO DAILY 09/13/17 (*)] Multivitamins [Multivitamin (*)] 1 each PO DAILY 09/13/17 [place]-3 Fatty Acids [Fish Oil 1000 1,000 mg PO DAILY 09/13/17 mg (*)] cefTRIAXone [Rocephin] 2 gm IV DAILY vial 09/16/17 Acetaminophen [Tylenol 325mg (*)] 650 mg PO Q4HRS PRN tab 09/18/17 Apixaban [Eliquis] 5 mg PO BID #60 tab 09/18/17 Metoprolol Tartrate [Lopressor 25 12.5 mg PO BID #60 tab 09/18/17 mg (*)] Medical Decision Making ED Course/Re-evaluation: CHIEF COMPLAINT: Picc line clog HISTORY OF PRESENT ILLNESS: The patient is an 82 y/o female complaining of a picc line clot. She was seen here last night for high potassium. On recheck, potassium was normal. This morning, her picc line was not capped after her visit. This morning it was clogged. She denies any other associated symptoms. REVIEW OF SYSTEMS: A 10 point review of systems was performed and is negative with the exception of the elements mentioned in the history of present illness. PHYSICAL EXAM: HR, BP, O2 Sat, RR. Temp noted General Appearance: Alert, well hydrated, appropriate, and non-toxic appearing. Head: Atraumatic without scalp tenderness or obvious injury Eyes: Pupils equal, round, reactive to light and accommodation, EOMI, no trauma , no injection. Ears: Clear bilaterally, no perforation, normal landmarks Nose: Atraumatic, no rhinorrhea, clear. Throat: There is no erythema or exudates, no lesions, normal tonsils, mucus membranes moist. Neck: Supple, nontender, no lymphadenopathy. Respiratory: No retractions, no distress, no wheezes, and no accessory muscle use. Lungs are clear to auscultation bilaterally. Cardiovascular: Picc line clogged. Regular rate and rhythm, no murmurs, rubs, or gallops. Good capillary refill all extremities. Gastrointestinal: Abdomen is soft, nontender, non-distended, no masses, no rebound, no guarding, no peritoneal signs. Musculoskeletal: Normal active ROM of all extremities, atraumatic. Neurological: Alert, appropriate, and interactive. Skin: No rashes, good turgor, no nodules on palpation. Past medical history: Picc line Past surgical history: Denies Family history: Non-contributory Social history: Family at bedside, lives in [place], retired DIFFERENTIAL DIAGNOSIS: The differential diagnosis for this patient's picc line included but was not limited to blood clot, infection, or other picc line issues. MEDICAL DECISION MAKING: The patient presented with a clogged picc line. The picc line was cleared with alteplase and then heparin was run through. She had mild chest discomfort afterward which resolved quickly after burping. She denies any further complaints. I feel she is safe to return home. She agrees to this course of action. Follow-up instructions and return precautions given. - Data Points Medications Given: Discontinued Medications Alteplase, Recombinant (Cathflo Activase) 2 mg IVP EDNOW ONE Stop: 09/23/17 14:24 Last Admin: 09/23/17 14:26 Dose: 2 mg Heparin Sodium (Porcine) (Heparin Lock Flush) 500 unit IVP EDNOW ONE Stop: 09/23/17 14:24 Last Admin: 09/23/17 14:33 Dose: 500 unit Departure - Departure Disposition: Home, Routine, Self-Care Clinical Impression: Occluded PICC line Qualifiers: Encounter type: initial encounter Qualified Code(s): T82.898A - Other specified complication of vascular prosthetic devices, implants and grafts, initial encounter Condition: Good Instructions: How to Flush Your PICC or Midline Catheter (ED) Additional Instructions: 1. Continue to care for your picc line as directed. 2. Follow-up with your primary care provider for continued symptoms. 3. Return to the emergency department for any more clogs, infections, or other worsening of condition. Referrals: Sheila Hoff MD [Primary Care Provider] - As per Instructions Report Scribed for: Kam Valdez Report Scribed by: Berna Jaime Date of Report: 09/23/17 Time of Report: 14:41
[2017-09-23] MEDS ORDERED: ALTEPLASE 2 MG VIAL ONE (14:06)
[2017-09-23] MEDS ORDERED: ALTEPLASE 2 MG VIAL IVP ONE (14:23)
--- NOTE | 2017-09-23 19:27 | ASMTCMCOM ---
CM Note CM Note Notes: Received a call from ASH Wayne with [facility] re: pt coming to the ED due to her PICC line being occluded. Pt has been receiving IV antibiotics for bacteremia for the past several days. [employer] is the IV infusion company providing supplies and antibiotics. Pt was seen in the ED yesterday for a high potassium level (drawn earlier for Dr Dodge) and had the PICC accessed for labs but when pt's daughter went to administer the IV abx this morning, the PICC line could not flush. Tone said she drove up to pt's home in [facility] and tried interventions/maneuvers in order to get the PICC line flushing again but had no success. Pt arrived to the ED and PICC line was successfully cleared with alteplase and heparin was run through. Patient was discharged home. CM available for further assistance. Date Signed: 09/23/2017 07:27 PM Electronically Signed By:Julianne Daniels RN
--- NOTE | 2017-09-23 19:31 | ASDISCHSUM ---
Discharge Information Plan Status:Home with No Needs Medically Cleared to Leave: Discharge Date:09/23/2017 02:52 PM D/C Disposition:Home Health Service [facility] D/C Disposition:Home, Routine, Self-Care Projected Discharge Date:09/23/2017 02:52 PM Transportation at D/C:Family Discharge Delay Reason: Follow-Up Date:09/23/2017 02:52 PM Discharge Slot: Final Diagnosis: Placement Information Patient Contact Information Contact Name:BENEDICT Relationship: Address:[address] [place] City:[place] Alternate Phone: [facility]/Zip Code:[place] [address] Email: Financial Information Financial Class:Medicare Advantage Plans Primary Plan Desc:ASHELY MEDICARE ADV Primary Plan Number:[id number] Secondary Plan Desc: Secondary Plan Number: Assessment Information [facility] CM Progress Note CM Note CM Note Notes: Received a call from ASH Wayne with [facility] re: pt coming to the ED due to her PICC line being occluded. Pt has been receiving IV antibiotics for bacteremia for the past several days. [employer] is the IV infusion [employer] providing supplies and antibiotics. Pt was seen in the ED yesterday for a high potassium level (drawn earlier for Dr Dodge) and had the PICC accessed for labs but when pt's daughter went to administer the IV abx this morning, the PICC line could not flush. Tone said she drove up to pt's home in [facility] and tried interventions/maneuvers in order to get the PICC line flushing again but had no success. Pt arrived to the ED and PICC line was successfully cleared with alteplase and heparin was run through. Patient was discharged home. CM available for further assistance. Date Signed: 09/23/2017 07:27 PM Electronically Signed By:Julianne Daniels RN Intervention Information
== END 2017-09-23 14:52 | disposition home or self-care (01) ==
DX: T82.898A Other specified complication of vascular prosthetic devices, implants and grafts, initial encounter (principal); I10 Essential (primary) hypertension; Z87.891 Personal history of nicotine dependence; Y71.2 Prosthetic and other implants, materials and accessory cardiovascular devices associated with adverse incidents
CPT/HCPCS: 99284; J1642; J2997

== ENCOUNTER 2017-10-03 18:12 | Emergency (ER) | payer OTHER ==
--- NOTE | 2017-10-03 18:37 | CPEKG ---
Heart Rate: 71 RR Interval: 845 P-R Interval: 180 QRSD Interval: 86 QT Interval: 416 QTC Interval: 453 P [place]: 50 QRS [place]: -6 T Wave [place]: 61 EKG Severity - ABNORMAL ECG - EKG Impression: SINUS RHYTHM EKG Impression: CONSIDER LEFT VENTRICULAR HYPERTROPHY Electronically Signed By: Adilia Pantoja 03-Oct-2017 20:47:20
--- NOTE | 2017-10-03 19:45 | EDPHY ---
H & P Time Seen by Provider: 10/03/17 18:26 HPI/ROS: HPI Transient chest discomfort. 82-year-old female by private vehicle with her . This patient has a history of a aortic valve replacement. She reports that she just came off of antibiotics which she was receiving for 2 weeks secondary to a blood infection. She reports that she has had several episodes chest discomfort which are intermittent in nature and described as a sensation of pressure and discomfort in her mid chest about a 0.5 hr after she eats a meal. She reports that it is only present at this time and after she eats. She also has a history of tachycardia. She currently has a Holter monitor on that was arranged by her diesel tractor engine mechanic Dr. Elias. Dr. Elias is to see her on Friday for follow-up. She presents to the emergency department stating that at approximately 4-5 p.m. She ate a meal in about 0.5 hr after that she again got this is typical mid substernal chest discomfort. By the time she got to the emergency department the sensation had completely resolved. At this time she has no complaints. ROS: Constitutional: No fever, no chills. No weakness. Eyes: No discharge. No changes in vision. ENT: No sore throat. No nasal congestion or rhinorrhea. Respiratory: No cough. No shortness of breath. Cardiac: As above, no palpitations. Gastrointestinal: No abdominal pain, no vomiting, no diarrhea. Genitourinary: No hematuria. No dysuria or increased frequency with urination. Musculoskeletal: No back pain. No neck pain. No myalgias or arthralgias. Skin: No rashes. Neurological: No headache. No focal weakness or altered sensation. Past medical history: Hypertension, hyperlipidemia, right lobectomy, osteoarthritis, as above. Recent history of tachycardia, unclear etiology. Currently wearing a Holter monitor. Social history: Nonsmoker. Here with her . No alcohol. Physical Exam: General Appearance: Alert, no distress. This patient is responding to questions appropriately and in full sentences. This patient appears well- hydrated and well-nourished. Eyes: Pupils equal and round no pallor or injection. No lid edema, erythema or injection. Respiratory: There are no retractions, lungs are clear to auscultation with good air movement bilaterally. Cardiovascular: Regular rate and rhythm. No murmur appreciated in the loud emergency department. Gastrointestinal: Abdomen is soft and nontender, no masses, bowel sounds normal. No focal tenderness at McBurney's point. No George sign. Neurological: Motor sensory function is grossly intact. Cranial nerves are normal. Skin: Warm and dry, no rashes. Musculoskeletal: Neck is supple and nontender. Extremities are symmetrical. All joints range without pain or impingement. Psychiatric: No agitation. No depression. Database: EKG: EKG time is 6:34 p.m.; EKG shows a narrow complex normal sinus rhythm with a ventricular rate of 71. The NC, QRS, QT intervals are within normal limits. There are no ST-T wave changes indicative of ischemic or injury pattern. No evidence of right heart strain. Interpreted by me. Imaging: Procedures: Emergency department course: Vital signs reviewed. She is afebrile. Vital signs otherwise unremarkable. Recent previous medical history as well as blood work and urine obtained today through her infectious disease specialist Dr. Tosha Greenberg reviewed. This time she does not want significant further testing. She declines repeating her blood work. She does agree to getting a troponin. 8:20 p.m., patient re-evaluated. No chest pain. No complaints. Her vital signs have remained normal. She has been in a narrow complex sinus rhythm with ventricular rate in the upper 60s to low 70s since she has been here. She is requesting discharge at this time. I discussed the results of her troponin with her and her . This is approximately at 3-1/2 to a 4 hr troponin since the onset of her symptoms. I feel that acute coronary syndrome is very unlikely. She does not want to be admitted to the hospital again and observed overnight. She will follow up with her diesel tractor engine mechanic, Dr. Elias, next week for re -evaluation as scheduled. Return to emergency department precautions were discussed with her and her . All of their questions were answered. She was discharged in good condition with her . Differential Diagnosis: The differential diagnosis on this patient includes but is not limited to esophageal spasm, noncardiac chest pain. Acute coronary syndrome, aortic dissection, pericarditis myocarditis, endocarditis, pulmonary embolism unlikely. This represents a partial list of diagnoses considered. These considerations are based on history, physical exam, past history, reassessment and diagnostic testing. Smoking Status: Former smoker Constitutional: Initial Vital Signs Temperature (C) 37.0 C 10/03/17 18:17 Heart Rate 80 10/03/17 18:17 Respiratory Rate 18 10/03/17 18:17 Blood Pressure 134/77 H 10/03/17 18:17 O2 Sat (%) 92 10/03/17 18:17 O2 Delivery Mode Room Air Allergies/Adverse Reactions: Penicillins Allergy (Verified 09/23/17 13:44) Hives Home Medications: Medication Instructions Recorded Ascorbic Acid [Vitamin C 250 mg 250 mg PO DAILY 09/13/17 (*)] Atorvastatin Calcium [Lipitor 40 40 mg PO HS 09/13/17 mg (*)] Calcium Carbonate [Oyster Shell 500 mg PO DAILY 09/13/17 Calcium 500 mg (*)] Cholecalciferol Vit D3 [Vitamin D3 1,000 units PO DAILY 09/13/17 (*)] Multivitamins [Multivitamin (*)] 1 each PO DAILY 09/13/17 [place]-3 Fatty Acids [Fish Oil 1000 1,000 mg PO DAILY 09/13/17 mg (*)] cefTRIAXone [Rocephin] 2 gm IV DAILY vial 09/16/17 Acetaminophen [Tylenol 325mg (*)] 650 mg PO Q4HRS PRN tab 09/18/17 Apixaban [Eliquis] 5 mg PO BID #60 tab 09/18/17 Metoprolol Tartrate [Lopressor 25 12.5 mg PO BID #60 tab 09/18/17 mg (*)] Medical Decision Making - Data Points Laboratory Results: 10/03/17 19:36 Troponin I < 0.012 ng/mL ng/mL (0.000-0.034) Departure - Departure Disposition: Home, Routine, Self-Care Clinical Impression: Transient chest discomfort, Chest discomfort Condition: Good Instructions: Chest Pain (ED) Additional Instructions: Read and follow provided instructions. Follow-up with your diesel tractor engine mechanic as scheduled on Friday for re-evaluation. Continue your medications as prescribed. No strenuous activity. Return to the emergency department for chest pain, heart palpitations, shortness of breath, lightheadedness or other serious concerns. Referrals: Shabbir George MD [Medical Doctor] - As per Instructions
[2017-10-03 20:37] VITALS: BP 146/70
== END 2017-10-03 20:39 | disposition home or self-care (01) ==
LOC: EEVIPCON 18:12
DX: R07.89 Other chest pain (principal); I10 Essential (primary) hypertension; Z87.891 Personal history of nicotine dependence

== ENCOUNTER 2017-10-13 15:35 | Emergency (ER) | payer OTHER ==
--- NOTE | 2017-10-13 17:02 | CPEKG ---
Heart Rate: 67 RR Interval: 896 P-R Interval: 192 QRSD Interval: 88 QT Interval: 440 QTC Interval: 465 P [place]: 32 QRS [place]: -8 T Wave [place]: 92 EKG Severity - ABNORMAL ECG - EKG Impression: SINUS RHYTHM EKG Impression: LVH WITH SECONDARY REPOLARIZATION ABNORMALITY Electronically Signed By: Aramis Allison 13-Oct-2017 23:55:27
[2017-10-13 17:31] LABS: PLATELET COUNT 189 10^3/uL (150-400)
--- NOTE | 2017-10-13 17:52 | EDPHY ---
H & P Time Seen by Provider: 10/13/17 16:50 HPI/ROS: Chief complaint. Headache HPI. Patient a 2-year-old female here with right-sided headache for 2 days. She has a fairly extensive recent medical history. Patient had a bovine aortic valve replaced in 2014. Apparently there was a manufacture warning that the valves were contaminated with bacteria. She was admitted September 13 for fever and chills and had positive strep endocarditis. She was discharged September 16 and had IV antibiotics through PICC line through September 26. On September 17 she was admitted for atrial fibrillation and discharged the next day. She was seen September 23 for clogged PICC line and then on October 03 for chest pain. She was not admitted either of these last 2 visits. She saw the electric meter tester on Friday 3 days ago and because of the atrial fibrillation was started on Eliquis. The next day she developed right-sided headache and bloody nose and was somewhat dizzy. She stopped Eliquis last night. She took Tylenol. Her headache is much improved and basically gone though occasionally has right christianity"jabs". No vision change. No chest discomfort, shortness of breath, fever. No recent head injury. ROS Constitutional. no fever/chills, no weakness Eyes. no problems with vision ENT. no sore throat, no nasal drainage Cardiovascular. no chest pain Respiratory. no shortness of breath, no cough Abdominal. no abdominal pain, no nausea/vomiting, no diarrhea . no problems urinating MS. no calf pain/swelling, no neck/back pain, no joint pain Skin. no rash Lymph. no swollen glands Neuro. Right-sided headache Past Medical/Surgical History: Past medical history significant for hypertension, dyslipidemia, aortic valve replacement, right lower lobectomy, knee replacement, strep endocarditis Social History: , nonsmoker, no alcohol Smoking Status: Former smoker Physical Exam: General Appearance: Alert pleasant well-developed female mild distress vital signs are stable. Afebrile Eyes: Pupils equal and round no pallor or injection. ENT, Mouth: Mucous membranes are moist. Respiratory: There are no retractions, lungs are clear to auscultation. Cardiovascular: Regular rate and rhythm. Gastrointestinal: Abdomen is soft and nontender, no masses, bowel sounds normal. Neurological: Awake and alert, sensory and motor exams grossly normal. Skin: Warm and dry, no rashes. Musculoskeletal: Neck is supple nontender. Extremities symmetrical, full range of motion. Psychiatric: Patient is oriented X 3, there is no agitation. Constitutional: Initial Vital Signs Temperature (C) 36.5 C 10/13/17 15:47 Heart Rate 66 10/13/17 15:47 Respiratory Rate 16 10/13/17 15:47 Blood Pressure 152/58 H 10/13/17 15:47 O2 Sat (%) 96 10/13/17 15:47 O2 Delivery Mode Room Air Allergies/Adverse Reactions: Penicillins Allergy (Verified 09/23/17 13:44) Hives Home Medications: Medication Instructions Recorded Ascorbic Acid [Vitamin C 250 mg 250 mg PO DAILY 09/13/17 (*)] Atorvastatin Calcium [Lipitor 40 40 mg PO HS 09/13/17 mg (*)] Calcium Carbonate [Oyster Shell 500 mg PO DAILY 09/13/17 Calcium 500 mg (*)] Cholecalciferol Vit D3 [Vitamin D3 1,000 units PO DAILY 09/13/17 (*)] Multivitamins [Multivitamin (*)] 1 each PO DAILY 09/13/17 [place]-3 Fatty Acids [Fish Oil 1000 1,000 mg PO DAILY 09/13/17 mg (*)] Acetaminophen [Tylenol 325mg (*)] 650 mg PO Q4HRS PRN tab 09/18/17 Apixaban [Eliquis] 5 mg PO BID #60 tab 09/18/17 Metoprolol Tartrate [Lopressor 25 12.5 mg PO BID #60 tab 09/18/17 mg (*)] Eliquis 10/13/17 predniSONE 60 mg PO DAILY #9 tablet 10/13/17 Medical Decision Making - Diagnostics EKG Interpretation: EKG interpreted by me shows normal sinus rhythm normal interval. Left axis deviation. LVH by voltage. No significant ST elevation or depression. No arrhythmia. The rate is 63. No change in EKG from previous 10/03/2017 Imaging Results: Imaging Impressions Head CT 10/13/17 17:53 Impression: Head CT within normal limits. No parenchymal hemorrhage. A message was left for Dr. Aramis Allison at 6:14 PM General information for patients regarding this examination can be found at [email or web address]. If you have questions or comments about this report, please contact me at [phone] (hospital) or [phone] (cell). Noncontrast head CT reviewed by me and discussed with Dr. Camp is negative for hemorrhage Procedures: IV normal saline. Blood cultures, septic workup Prednisone 60 mg orally ED Course/Re-evaluation: I consulted discussed the case with Dr. Green for Neurology. He agrees with concern for giant cell arteritis and recommends starting the patient on prednisone. He will see the patient in the office tomorrow. The patient, her , and I discussed imaging and lab results. We discussed treatment plan including criteria for return and importance of follow- up and further evaluation. She expresses understanding and agreement Differential Diagnosis: Patient with headache on blood thinners. I considered intracranial bleeding. It is right-sided and jabbing and she has an elevated sed rate. I have considered giant cell arteritis as well. I have considered untoward med reaction secondary to the Eliquis as well. - Data Points Laboratory Results: Laboratory Results 10/13/17 17:16 10/13/17 17:16 10/13/17 10/13/17 10/13/17 17:35 17:16 17:16 WBC 6.56 10^3/uL 10^3/uL (3.80-9.50) RBC 4.18 10^6/uL 10^6/uL (4.18-5.33) Hgb 12.2 g/dL L g/dL (12.6-16.3) Hct 36.7 % L % (38.0-47.0) MCV 87.8 fL fL (81.5-99.8) MCH 29.2 pg pg (27.9-34.1) MCHC 33.2 g/dL g/dL (32.4-36.7) RDW 15.5 % H % (11.5-15.2) Plt Count 189 10^3/uL 10^3/uL (150-400) MPV 9.0 fL fL (8.7-11.7) Neut % (Auto) 63.4 % % (39.3-74.2) Lymph % (Auto) 23.3 % % (15.0-45.0) [place] % (Auto) 9.0 % % (4.5-13.0) Eos % (Auto) 3.2 % % (0.6-7.6) Baso % (Auto) 0.8 % % (0.3-1.7) Nucleat RBC Rel Count 0.0 % % (0.0-0.2) Absolute Neuts (auto) 4.16 10^3/uL 10^3/uL (1.70-6.50) Absolute Lymphs (auto) 1.53 10^3/uL 10^3/uL (1.00-3.00) Absolute Monos (auto) 0.59 10^3/uL 10^3/uL (0.30-0.80) Absolute Eos (auto) 0.21 10^3/uL 10^3/uL (0.03-0.40) Absolute Basos (auto) 0.05 10^3/uL 10^3/uL (0.02-0.10) Absolute Nucleated RBC 0.00 10^3/uL 10^3/uL (0-0.01) Immature Gran % 0.3 % % (0.0-1.1) Immature Gran # 0.02 10^3/uL 10^3/uL (0.00-0.10) ESR 37 MM/HR H MM/HR (0-30) VBG Lactic Acid 1.2 mmol/L mmol/L (0.7-2.1) Sodium 140 mEq/L mEq/L (135-145) Potassium 3.9 mEq/L mEq/L (3.5-5.2) Chloride 102 mEq/L mEq/L (97-110) Carbon Dioxide 26 mEq/l mEq/l (22-31) Anion Gap 12 mEq/L mEq/L (8-16) BUN 12 mg/dL mg/dL (7-23) Creatinine 0.8 mg/dL mg/dL (0.6-1.0) Estimated GFR > 60 Glucose 105 mg/dL H mg/dL (70-100) Calcium 9.4 mg/dL mg/dL (8.5-10.4) Departure - Departure Disposition: Home, Routine, Self-Care Clinical Impression: Headache Qualifiers: Headache type: unspecified Headache chronicity pattern: acute headache Condition: Good Instructions: Acute Headache (ED) Additional Instructions: Prednisone each day for the next 4 days. We are giving you prednisone tonight annual next dose will be after you fill the prescription tomorrow. We would like for you to see Dr. Nava, the neurologist, tomorrow. Return tonight for worsening symptoms. Stop the Eliquis and call Dr. Elias to discuss further anticoagulation. Referrals: Sheila Hoff MD [Primary Care Provider] - As per Instructions Shabbir George MD [Medical Doctor] - As per Instructions Flo Nava DO [Medical Doctor] - 1 day without fail Prescriptions: predniSONE 60 mg PO DAILY #9 tablet
[2017-10-13] MEDS ORDERED: predniSONE 20 MG TAB PO ONE (19:02)
[2017-10-13 19:32] VITALS: BP 143/66
== END 2017-10-13 19:31 | disposition home or self-care (01) ==
DX: R51 Headache (principal); I10 Essential (primary) hypertension; Z79.01 Long term (current) use of anticoagulants; Z87.891 Personal history of nicotine dependence
CPT/HCPCS: 70450; 93005; 99285; J7512

== ENCOUNTER 2017-10-21 12:11 | Observation (INO) | payer OTHER ==
--- NOTE | 2017-10-21 14:23 | EDPHY ---
H & P Stated Complaint: sent from neuro for temporal arteritis--(h/a vision chsnges x weeks Time Seen by Provider: 10/21/17 13:43 HPI/ROS: CHIEF COMPLAINT: Headache, visual loss HISTORY OF PRESENT ILLNESS: 82-year-old female with prior AVR and recent strep bacteremia presents for evaluation of temporal arteritis. She has complex recent medical history, including strep bacteremia in August 2017. She was admitted for IV antibiotics and then sent home on oral antibiotics. She was readmitted 2 days later for atrial fibrillation with RVR. She was placed on Eliquis, but developed an allergic reaction to Eliquis. She was sent switched to Coumadin. Since starting Eliquis, she has had intermittent headaches. She was seen on 10/13/2017 and diagnosed with probable temporal arteritis. CT scan of the brain was unremarkable at that time. She was started on prednisone. However she developed facial erythema after starting prednisone, so the prednisone was discontinued. Since then she has developed blurry vision and multiple spots in her vision. She has a long standing history of neck discomfort, that sometimes radiates to her jaw. No new jaw claudication symptoms. She was sent to the emergency department for admission by Dr. Nava for possible temporal arteritis. REVIEW OF SYSTEMS: complete 10 point ROS negative except at noted in the HPI - Personal History Current Tetanus/Diphtheria Vaccine: Unsure Current Tetanus Diphtheria and Acellular Pertussis (TDAP): Unsure Tetanus Vaccine Date: < 10 years - Medical/Surgical History Hx Asthma: No Hx Chronic Respiratory Disease: No Hx Diabetes: No Hx Cardiac Disease: No Hx Renal Disease: No Hx Cirrhosis: No Hx Alcoholism: No Hx HIV/AIDS: No Hx Splenectomy or Spleen Trauma: No Other PMH: HTN, HYPERLIPIDEMIA, aortic valve replacement, rt lower lobectomy, RADHIKA, aortic stenosis, a fib, peptic ulcer disease - Social History Smoking Status: Former smoker - Physical Exam Exam: General Appearance: Alert, pleasant, well-appearing Eyes: Pupils equal and round, no conjunctival pallor or injection ENT, Mouth: No tenderness over the temporal arteries, Mucous membranes moist Neck: Normal inspection Respiratory: Lungs are clear to auscultation Cardiovascular: Regular rate and rhythm Gastrointestinal: Abdomen is soft and nontender Neurological: Alert, oriented x3, cranial nerves II through XII intact, motor 5 /5, sensory intact to light touch, normal gait Skin: Warm and dry, no rash Extremities: Nontender, no pedal edema Psychiatric: Mood and affect normal Constitutional: Initial Vital Signs Temperature (C) 37.5 C 10/21/17 12:15 Heart Rate 57 L 10/21/17 12:15 Respiratory Rate 18 10/21/17 12:15 Blood Pressure 146/69 H 10/21/17 12:15 O2 Sat (%) 97 10/21/17 12:15 O2 Delivery Mode Room Air Allergies/Adverse Reactions: Penicillins Allergy (Verified 09/23/17 13:44) Hives Home Medications: Medication Instructions Recorded Ascorbic Acid [Vitamin C 250 mg 500 mg PO DAILY 09/13/17 (*)] Atorvastatin Calcium [Lipitor 40 40 mg PO HS 09/13/17 mg (*)] Calcium Carbonate [Oyster Shell 500 mg PO DAILY 09/13/17 Calcium 500 mg (*)] Cholecalciferol Vit D3 [Vitamin D3 1,000 units PO DAILY 09/13/17 (*)] Multivitamins [Multivitamin (*)] 1 each PO DAILY 09/13/17 [place]-3 Fatty Acids [Fish Oil 1000 1,000 mg PO DAILY 09/13/17 mg (*)] Acetaminophen [Tylenol 325mg (*)] 650 mg PO Q4HRS PRN tab 09/18/17 Metoprolol Tartrate [Lopressor 25 12.5 mg PO BID #60 tab 09/18/17 mg (*)] Cyanocobalamin [Vitamin B12 (*)] 1,000 mcg PO DAILY 10/21/17 Herbals/Supplements -Info Only 1 ea PO DAILY 10/21/17 Warfarin Sodium [Coumadin 5MG (*)] 5 mg PO DAILY 10/21/17 Medical Decision Making ED Course/Re-evaluation: This patient presents by her neurologist for admission for evaluation for temporal arteritis. Clinically, I doubt temporal arteritis, with no tenderness over the temporal arteries, minimal headache and no clear visual change. Visual acuity 20/40 in both eyes. Sed rate is normal today. I suspect that she has a tension headache, but will need further evaluation by Ophthalmology and Rheumatology as well as consideration for temporal artery biopsy. The hospitalist service was consulted for admission. Differential Diagnosis: Headache including but not limited to subarachnoid hemorrhage, migraine headache , tension headache and infectious causes such as meningitis, pharyngitis and sinusitis. - Data Points Laboratory Results: Laboratory Results 10/21/17 14:24 10/21/17 14:15 Medications Given: Acetaminophen (Tylenol) 650 mg PO Q4HRS PRN PRN Reason: Pain, Mild/Fever, Can Take PO Stop: 04/19/18 15:51 Last Admin: 10/22/17 00:14 Dose: 650 mg Ascorbic Acid (Vitamin C) 500 mg PO DAILY NOREEN Stop: 04/20/18 08:59 Last Admin: 10/22/17 09:42 Dose: 500 mg Atorvastatin Calcium (Lipitor) 40 mg PO HS NOREEN Stop: 04/19/18 20:59 Last Admin: 10/21/17 21:46 Dose: 40 mg Calcium Carbonate (Oyster Shell Calcium) 500 mg PO DAILY NOREEN Stop: 04/20/18 08:59 Last Admin: 10/22/17 09:33 Dose: 500 mg Cholecalciferol (Vitamin D) 1,000 units PO DAILY NOREEN Stop: 04/20/18 08:59 Last Admin: 10/22/17 09:33 Dose: 1,000 units Metoprolol Tartrate (Lopressor) 12.5 mg PO BID NOREEN Stop: 04/19/18 20:59 Last Admin: 10/22/17 09:33 Dose: 12.5 mg Multivitamins (Tab-A-Anna) 1 each PO DAILY NOREEN Stop: 04/20/18 08:59 Last Admin: 10/22/17 09:33 Dose: 1 each [id number]-[id number] Ethyl Esters (Fish Oil) 1,000 mg PO DAILY NOREEN Stop: 04/20/18 08:59 Last Admin: 10/22/17 09:33 Dose: 1,000 mg Vitamin B Complex (Vitamin B12) 1,000 mcg PO DAILY NOREEN Stop: 04/20/18 08:59 Last Admin: 10/22/17 09:33 Dose: 1,000 mcg Warfarin Sodium (Coumadin) 5 mg PO DAILY NOREEN Stop: 04/20/18 08:59 Last Admin: 10/22/17 09:33 Dose: 5 mg Departure - Departure Disposition: [facility] Acute Clinical Impression: Headache Qualifiers: Headache type: tension-type Headache chronicity pattern: unspecified pattern Intractability: not intractable Qualified Code(s): G44.209 - Tension-type headache, unspecified, not intractable Condition: Good
[2017-10-21 14:32] LABS: PLATELET COUNT 199 10^3/uL (150-400)
[2017-10-21 14:38] LABS: INR 1.84 (0.83-1.16); PROTIME(PATIENT) 21.3 SEC (12.0-15.0)
[2017-10-21] MEDS ORDERED: ACETAMINOPHEN 325 MG TAB PO PRN ×2 (15:52→15:58)
[2017-10-21] MEDS ORDERED: ONDANSETRON 4 MG/2 ML VIAL IVP PRN (15:58)
--- NOTE | 2017-10-21 16:17 | GHP ---
[f rep st] HISTORY AND PHYSICAL DATE OF ADMISSION: 10/21/2017 CHIEF COMPLAINT: Headache. HISTORY OF PRESENT ILLNESS: This is an 82-year-old female, who was referred to the emergency departm ent for evaluation for temporal arteritis by Dr. Nava of Neurology. The patient was seen at [facility] Emergency Department on 10/14/2007 for a headache that had been going on for 2 days. She had attributed this headache to being started on Eliquis, which has since been stopped. At mert t time, a sedimentation rate was done that was mildly elevated at 37, which brought up the concern fo r temporal arteritis. The patient was then placed on 60 mg of prednisone, which has also caused head ache and facial redness. The patient states the pain is in her neck and radiates to both sides of th e back of her head. She denies any temporal pain or jaw pain. She typically does not get headaches, but has been having increasing neck pain recently. PAST MEDICAL HISTORY: 1. Recent hospitalization for atrial fibrillation. 2. Recent hospitalization for Streptococcus bacteremia. 3. Aortic valve stenosis with valve replacement. 4. Hyperlipidemia. 5. Hypertension. 6. Osteoarthritis. 7. Peptic ulcer disease. 8. Knee surgery. 9. Right lower lobectomy. 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 HOME MEDICATIONS: Reviewed. Refer to [email or web address] for details. ALLERGIES: Penicillin. SOCIAL HISTORY: The patient is . She is a former smoker. She drinks alcohol occasionally. FAMILY HISTORY: Reviewed and noncontributory. REVIEW OF SYSTEMS: Comprehensive 10-point review of systems was done and is negative, except for as mentioned in the HPI. PHYSICAL EXAM: VITAL SIGNS: Blood pressure 155/67, pulse of 59, respiratory rate 12, O2 saturation 94% on room air. Temperature afebrile. GENERAL: No acute distress. HEAD: Normocephalic, atraumat ic. EYES: PERRLA. Sclerae anicteric. There is no tenderness or cords over the temporal arteries. NECK: Supple. There is significant muscle spasm in the left trapezius. CARDIOVASCULAR: S1, S2. No JVD. No lower extremity edema. PULMONARY: Lungs are clear. No wheezes, rales, or rhonchi. ABD OMEN: Soft, nontender, nondistended. No guarding or rebound tenderness. Normoactive bowel sounds. EXTREMITIES: No clubbing or cyanosis. NEURO: Cranial nerves 2-12 grossly intact. No focal motor or sensory deficits. SKIN: Clear, no rashes. DIAGNOSTICS: WBC 7.4, hemoglobin 12, hematocrit 36.5, platelets 199. ESR 29. INR 1.84, sodium 138, potassium 4, chloride 104, CO2 of 27, BUN 15, creatinine 0.8, glucose 82. ER notes from earlier thi s month were reviewed. Head CT on 10/13/2017 was read as normal. ASSESSMENT AND PLAN: This is an 82-year-old female presenting with: 1. Headaches with previously elevated ESR up to 37 on 10/13/2017, which is now normal with some vagu e vision changes, but without temporal artery pain. Discussion: The patient's headaches and visual symptoms seem rather nonspecific. Given her exam with neck pain and muscle spasm, I suspect tension headache as a more likely cause of her symptoms. I did discuss the case with Dr. Nava from Neurology , who has requested that I consult Ophthalmology and Rheumatology to render an opinion prior to obtai aretha a temporal artery biopsy. Given that the patient's headache was worse with prednisone, will def er prednisone at this time and repeat a sedimentation rate in the morning. If there is a concern for temporal arteritis, prednisone should be restarted at that time. 2. Recent hospitalization for atrial fibrillation. We will continue home dose of warfarin and Lopre ssor and monitor for tachyarrhythmias. 3. Streptococcus bacteremia, status post treatment with ceftriaxone. 4. Aortic stenosis, status post biologic valve replacement in 2014. 5. Chronic hypoxemic, respiratory failure. Continue supplemental oxygen. Monitor for desaturations . /[id number]/MODL
[2017-10-21] MEDS ORDERED: ATORVASTATIN CALCIUM 40 MG TAB PO SCH (21:00)
[2017-10-21] MEDS: METOPROLOL TARTRATE 25 MG TAB PO SCH (21:46)
[2017-10-22 05:40] LABS: INR 2.16 (0.83-1.16); PROTIME(PATIENT) 24.1 SEC (12.0-15.0)
[2017-10-22 08:31] VITALS: BP 117/72
[2017-10-22] MEDS ORDERED: WARFARIN SODIUM 5 MG TAB PO SCH (09:00)
[2017-10-22] MEDS ORDERED: Herbals/Supplements -Info Only PO SCH (09:00)
[2017-10-22] MEDS ORDERED: OMEGA-3 FATTY ACIDS 1,000 MG CAP PO SCH (09:00)
[2017-10-22] MEDS ORDERED: ASCORBIC ACID 250 MG TAB PO SCH (09:00)
[2017-10-22] MEDS ORDERED: MULTIVITAMINS 1 EACH TAB PO SCH (09:00)
[2017-10-22] MEDS ORDERED: ASCORBIC ACID 500 MG TAB PO SCH (09:00)
[2017-10-22] MEDS ORDERED: CYANO/VITAMIN B12 1000 MCG TAB PO SCH (09:00)
[2017-10-22] MEDS ORDERED: CALCIUM CARBONATE 500 MG TAB PO SCH (09:00)
[2017-10-22] MEDS ORDERED: CHOLECALCIFEROL VIT D3 1,000 UNITS TAB PO SCH (09:00)
[2017-10-22] MEDS: METOPROLOL TARTRATE 25 MG TAB PO SCH (09:33)
--- NOTE | 2017-10-22 10:34 | ASMTCASEMG ---
Living Arrangements What is your living Answers: With Spouse arrangement? Who do you live with? Type Of Residence What kind of residence do Answers: House you live in? Discharge Plan Comments Coordination Status Comments Notes: Pt is a 82 y/o female admitted for a headache. Pt was recently hospitalized at [facility] for afib. OT has been ordered and awaiting recommendations. Transitional care is following on this case. Pt will most likely d/c independent when medically stable. CM available for changes. Plan: Independent Date Signed: 10/22/2017 10:34 AM Electronically Signed By:CALDERON Brantley
--- NOTE | 2017-10-22 16:32 | PDDCSUM ---
Discharge Summary Discharge Summary: HPI/Hospital course This is a 82 yo female who was seen by Dr. Nava yesterday and sent to the ER for concern for temporal arteritis. She was admitted. She has a hx of chronic ANDREWS that she reports she gets with various stressors. During her previous w/u she was noted to have elevated ESR. At Dr. Gill office she had visual deficits. Per the pt and nursing, her ANDREWS and visual deficits resolved upon arrival to the medical floor. ESR yesterday was 29 and today was 26. She has not had any ANDREWS or visual deficits. She report that she often gets visual floaters on both eyes but that this is chronic and that she was evaluated for this 2 years ago by optometry with negative testing. I was not able to see her until around 1600 today and she and her are requesting discharge as she is no longer symptomatic. I offered to reach out to Neurology and attempted to call Dr. Nava. However, I wasnt able to reach him immediately and left a message. Given that the pt's Headache and visual defects have resolved over 24 hrs ago and that ESR is unremarkable and that she has a hx of chronic ANDREWS with some visual defects, they have requested discharge and I will discharge per their request. A Rheum consult had been requested but this was not able to be arranged during her short stay. She has been instructed to f/u with Optho first available appointment and also with Dr. Nava next week. She will also f/u with her PCP who apparently is very aware of her Headaches. As for her chronic medical problems, no adjustments to meds were done. INR is therapeutic. DDx: -Headaches -Visual deficits -Afib -Chronic Anticoagulation Exam: NAD AAOX3 RRR CTA B S/NT/ND NO LE EDEMA CNII-XII GROSSLY INTACT MEDS:NO CHANGES WERE MADE F/U: PER ABOVE TOTAL TIME SPENT ON D/C INCLUDING COORDINATION WITH NURSE, PT, and attempts to call Neurology is 40 minutes.
== END 2017-10-22 17:21 | disposition home or self-care (01) ==
LOC: F3N 16:19
PROVIDERS: ADMIT Family Medicine; ATTEND Family Medicine
DX: M31.6 Other giant cell arteritis (principal); R51 Headache; I48.91 Unspecified atrial fibrillation; H53.40 Unspecified visual field defects; E78.5 Hyperlipidemia, unspecified; I10 Essential (primary) hypertension; K27.9 Peptic ulcer, site unspecified, unspecified as acute or chronic, without hemorrhage or perforation; J96.11 Chronic respiratory failure with hypoxia; Z95.2 Presence of prosthetic heart valve; Z99.81 Dependence on supplemental oxygen; Z79.01 Long term (current) use of anticoagulants
CPT/HCPCS: 97161; 97165; 99285; G0378; G8978; G8979; G8980; G8987; G8988; G8989

== ENCOUNTER 2017-11-28 16:37 | Inpatient (IN) | payer OTHER ==
--- NOTE | 2017-11-28 18:02 | EDPHY ---
H & P Stated Complaint: sent by for bloody stools x 2 weeks, worse x 1 wk. anemic, on iron. - Personal History Current Tetanus/Diphtheria Vaccine: Yes Current Tetanus Diphtheria and Acellular Pertussis (TDAP): Yes Tetanus Vaccine Date: < 10 years - Medical/Surgical History Hx Asthma: No Hx Chronic Respiratory Disease: No Hx Diabetes: No Hx Cardiac Disease: Yes Hx Renal Disease: No Hx Cirrhosis: No Hx Alcoholism: No Hx HIV/AIDS: No Hx Splenectomy or Spleen Trauma: No Other PMH: HTN, HYPERLIPIDEMIA, aortic valve replacement, rt lower lobectomy, RADHIKA, aortic stenosis, hx/o a fib, peptic ulcer disease, left hip replacement - Social History Smoking Status: Former smoker Time Seen by Provider: 11/28/17 18:00 HPI/ROS: Chief complaint: Blood in stools History of present illness: This is an 82-year-old female who presents to the emergency department for evaluation of blood in her stools. She reports she has noted blood for the last 2 weeks. She did have her blood checked a few weeks ago by primary care doctor who noted that she was anemic. She was started on iron supplements around the time she started to develop the blood in her stools. She has had associated abdominal cramping. She denies other associated signs or symptoms. Review of systems: A 10 point review of systems was obtained and other than described above was negative (Garland Lugo) - Physical Exam Exam: General Appearance: Alert, no distress. Eyes: Pupils equal and round no pallor or injection. ENT, Mouth: Mucous membranes moist. Respiratory: There are no retractions, lungs are clear to auscultation. Cardiovascular: Regular rate and rhythm. Gastrointestinal: Abdomen is soft and non tender, no masses, bowel sounds normal. Neurological: Alert. Strength and sensation grossly intact. Skin: Warm and dry, no rashes. Musculoskeletal: Neck is supple non tender. Extremities are symmetrical, full range of motion. Psychiatric: Patient is oriented X 3, there is no agitation. (Garland Lugo) Constitutional: Initial Vital Signs Temperature (C) 36.4 C 11/28/17 16:44 Heart Rate 87 11/28/17 16:44 Respiratory Rate 16 11/28/17 16:44 Blood Pressure 145/58 H 11/28/17 16:44 O2 Sat (%) 92 11/28/17 16:44 O2 Delivery Mode Room Air Allergies/Adverse Reactions: Penicillins Allergy (Verified 11/28/17 16:41) Hives Home Medications: Medication Instructions Recorded Ascorbic Acid [Vitamin C 250 mg 500 mg PO DAILY 09/13/17 (*)] Atorvastatin Calcium [Lipitor 40 40 mg PO HS 09/13/17 mg (*)] Calcium Carbonate [Oyster Shell 500 mg PO DAILY 09/13/17 Calcium 500 mg (*)] Cholecalciferol Vit D3 [Vitamin D3 1,000 units PO DAILY 09/13/17 (*)] Multivitamins [Multivitamin (*)] 1 each PO DAILY 09/13/17 [place]glon-3 Fatty Acids [Fish Oil 1000 1,000 mg PO DAILY 09/13/17 mg (*)] Acetaminophen [Tylenol 325mg (*)] 650 mg PO Q4HRS PRN tab 09/18/17 Metoprolol Tartrate [Lopressor 25 12.5 mg PO BID #60 tab 09/18/17 mg (*)] Cyanocobalamin [Vitamin B12 (*)] 1,000 mcg PO DAILY 10/21/17 Herbals/Supplements -Info Only 1 ea PO DAILY 10/21/17 Warfarin Sodium [Coumadin 5MG (*)] 5 mg PO SUMOWEFR@16 10/21/17 Multivitamins [Multivitamin (*)] 1 each PO DAILY 11/28/17 Warfarin Sodium [Coumadin 2.5MG 2.5 mg PO TUTHSA@16 11/28/17 (*)] Medical Decision Making Procedures: Digital rectal exam with trace melena (Garland Lugo) ED Course/Re-evaluation: Patient is discussed with my secondary supervising physician Dr. Angélica Dunaway. Patient presents with black stools and abdominal cramping. She is on Coumadin. Melena noted on exam, stool guaiac positive. She is started on Protonix. She is admitted to the hospitalist service. She does have a aortic valve, unknown type at this time, we have not reversed her as she is hemodynamically stable. Dr. Matias of gastroenterology is consulted and will see this patient as well. He requests that she be NPO after midnight. (Garland Lugo) The patient was evaluated and managed by the physician's optical assistant. My cosignature indicates that I reviewed the chart and I agree with the findings and plan of care as documented. I am the secondary supervising physician. ( Angélica Dunaway) Differential Diagnosis: Included but not limited to upper GI bleed, lower GI bleed, stool color change from iron usage (Garland Lugo) - Data Points Laboratory Results: Laboratory Results 11/28/17 18:12 11/28/17 18:12 11/28/17 11/28/17 11/28/17 18:14 18:12 18:12 WBC RBC Hgb Hct MCV MCH MCHC RDW Plt Count MPV Neut % (Auto) Lymph % (Auto) [place] % (Auto) Eos % (Auto) Baso % (Auto) Nucleat RBC Rel Count Absolute Neuts (auto) Absolute Lymphs (auto) Absolute Monos (auto) Absolute Eos (auto) Absolute Basos (auto) Absolute Nucleated RBC Immature Gran % Immature Gran # PT 34.6 SEC H SEC (12.0-15.0) INR 3.46 H (0.83-1.16) APTT 43.1 SEC H SEC (23.0-38.0) Sodium 140 mEq/L mEq/L (135-145) Potassium 4.0 mEq/L mEq/L (3.3-5.0) Chloride 105 mEq/L mEq/L (97-110) Carbon Dioxide 26 mEq/l mEq/l (22-31) Anion Gap 9 mEq/L mEq/L (8-16) BUN 13 mg/dL mg/dL (7-23) Creatinine 0.8 mg/dL mg/dL (0.6-1.0) Estimated GFR > 60 Glucose 91 mg/dL mg/dL (70-100) Calcium 8.7 mg/dL mg/dL (8.5-10.4) Total Bilirubin 0.4 mg/dL mg/dL (0.1-1.4) Conjugated Bilirubin 0.4 mg/dL mg/dL (0.0-0.5) Unconjugated Bilirubin 0.0 mg/dL mg/dL (0.0-1.1) AST 26 IU/L IU/L (14-46) ALT 29 IU/L IU/L (9-52) Alkaline Phosphatase 74 IU/L IU/L (38-126) Total Protein 6.7 g/dL g/dL (6.3-8.2) Albumin 3.7 g/dL g/dL (3.5-5.0) Stool Occult Bld Scrn POSITIVE H (NEGATIVE) 11/28/17 18:12 WBC 5.45 10^3/uL 10^3/uL (3.80-9.50) RBC 3.27 10^6/uL L 10^6/uL (4.18-5.33) Hgb 9.7 g/dL L g/dL (12.6-16.3) Hct 29.9 % L % (38.0-47.0) MCV 91.4 fL fL (81.5-99.8) MCH 29.7 pg pg (27.9-34.1) MCHC 32.4 g/dL g/dL (32.4-36.7) RDW 15.9 % H % (11.5-15.2) Plt Count 232 10^3/uL 10^3/uL (150-400) MPV 8.8 fL fL (8.7-11.7) Neut % (Auto) 54.8 % % (39.3-74.2) Lymph % (Auto) 29.7 % % (15.0-45.0) [place] % (Auto) 10.3 % % (4.5-13.0) Eos % (Auto) 3.7 % % (0.6-7.6) Baso % (Auto) 1.1 % % (0.3-1.7) Nucleat RBC Rel Count 0.0 % % (0.0-0.2) Absolute Neuts (auto) 2.99 10^3/uL 10^3/uL (1.70-6.50) Absolute Lymphs (auto) 1.62 10^3/uL 10^3/uL (1.00-3.00) Absolute Monos (auto) 0.56 10^3/uL 10^3/uL (0.30-0.80) Absolute Eos (auto) 0.20 10^3/uL 10^3/uL (0.03-0.40) Absolute Basos (auto) 0.06 10^3/uL 10^3/uL (0.02-0.10) Absolute Nucleated RBC 0.00 10^3/uL 10^3/uL (0-0.01) Immature Gran % 0.4 % % (0.0-1.1) Immature Gran # 0.02 10^3/uL 10^3/uL (0.00-0.10) PT INR APTT Sodium Potassium Chloride Carbon Dioxide Anion Gap BUN Creatinine Estimated GFR Glucose Calcium Total Bilirubin Conjugated Bilirubin Unconjugated Bilirubin AST ALT Alkaline Phosphatase Total Protein Albumin Stool Occult Bld Scrn Medications Given: Discontinued Medications Pantoprazole Sodium (Protonix) 40 mg IVP EDNOW ONE Stop: 11/28/17 18:40 Last Admin: 11/28/17 18:52 Dose: 40 mg Departure - Departure Disposition: [facility] Inpatient Acute Clinical Impression: GI bleed Qualifiers: GI bleed type/associated pathology: unspecified gastrointestinal hemorrhage type Qualified Code(s): K92.2 - Gastrointestinal hemorrhage, unspecified Condition: Fair
[2017-11-28 18:24] LABS: PLATELET COUNT 232 10^3/uL (150-400)
[2017-11-28 18:33] LABS: INR 3.46 (0.83-1.16); PROTIME(PATIENT) 34.6 SEC (12.0-15.0)
[2017-11-28] MEDS ORDERED: PANTOPRAZOLE SODIUM 40 MG VIAL IVP ONE (18:39)
[2017-11-28] MEDS ORDERED: ONDANSETRON DISINTEGRATING 4 MG TAB PO PRN (19:00)
[2017-11-28] MEDS ORDERED: ONDANSETRON 4 MG/2 ML VIAL IVP PRN (19:00)
[2017-11-28] MEDS ORDERED: NS 1,000 ML IV SCH (20:00)
--- NOTE | 2017-11-28 21:18 | GHP ---
[f rep st] HISTORY AND PHYSICAL DATE OF ADMISSION: 11/28/2017 CHIEF COMPLAINT: GI bleed. HISTORY OF PRESENT ILLNESS: An 82-year-old female with history of aortic stenosis status post biopro sthetic valve replacement in 2014, paroxysmal atrial fibrillation on Coumadin, who was sent in by Dr. Hoff with concern for a GI bleed. She was briefly on Eliquis after her valve replacement and not christian thereafter until August of this year. She was on Eliquis in which she had allergic reaction and switched over to Coumadin. On her INR check today, it was elevated at 3.46. For the past 2 weeks, s he has had black stools. They were loose for the past 3 days. She had no BM today. Reports crampy abdominal pain that is relieved after having a movement. Has been dizzy, intermittent headaches, and tired. She has not blacked out. Denies fevers. Has had some sweats. She is also taking iron supp lementation. Denies NSAIDs. Takes only Tylenol. Denies chest pain or shortness of breath. REVIEW OF SYSTEMS: I completed a 10-point review of systems; negative except as noted in HPI. PAST MEDICAL HISTORY: 1. Aortic stenosis, status post bioprosthetic valve replacement in 2014. 2. Paroxysmal atrial fibrillation, on Coumadin. CHADS-VASc 5. 3. Hypertension. 4. Hyperlipidemia. 5. Chronic hypoxemic respiratory failure, on 2 L at night. 6. RADHIKA. 7. Recent. 8. Streptococcus gallolyticus bacteremia, August 2017, requiring prolonged IV antibiotics. 9. History of nonsustained VT. 10. Peptic ulcer disease. 11. Had a normal colonoscopy within 5 years. PAST SURGICAL HISTORY: 1. Left JOESPH. 2. Cardioversion. 3. Aortic valve replacement. 4. Left TKA. 5. Right lobectomy, found to be benign. SOCIAL HISTORY: Lives in [place] with her . for 60 years. Has 2 kids, 1 grandchild. Denies alcohol, tobacco, or illicits. FAMILY HISTORY: Noncontributory. ALLERGIES: Penicillins, hives. HOME MEDICATIONS: Coumadin 5 mg daily, fish oil 1000 mg daily, multivitamin, Lopressor 12.5 mg twice daily, herbal supplements, vitamin B12, vitamin D3 1000 units daily, calcium carbonate, atorvastatin 40 mg daily, vitamin C, Tylenol. PHYSICAL EXAMINATION: VITAL SIGNS: Temperature 36.4, blood pressure 145/58, heart rates in the 80s (now 66), respirations 16, 92% on room air. GENERAL: Well-appearing, fatigued, pale, no acute distr ess. HEENT: PERRLA. Moist mucous membranes. Conjunctival pallor. Pupils are dilated. CV: Regul ar rate and rhythm. LUNGS: Clear. ABDOMEN: Mildly distended but soft. No tenderness with palpati on. Positive bowel sounds. : No [place]. MUSCULOSKELETAL: 5/5 upper and lower extremity strength . NEUROLOGIC: 2 through 12 intact. PSYCHIATRIC: Alert and oriented x3. SKIN: Warm and dry. LABORATORIES: 1. WBC is 5.4, hemoglobin 9.7, hematocrit 29, platelets 232; H and H in October 2017 was 12 and 36. 2. INR 3.46, PT is 34, PTT is 43. 3. Lactate is pending. Sodium 140, potassium 4, chloride 105, carbon dioxide 26, BUN 13, creatinine 0.9, glucose is 91. LFTs within normal. ASSESSMENT AND PLAN: 1. Melena: Differential includes peptic ulcer disease with supratherapeutic INR. Consider mesenter ic ischemia. Lactate is pending. She is hemodynamically stable. No tenderness on exam. If lactate is elevated, check a CT abdomen/pelvis. Serial H and H. IV PPI. Gastroenterology was consulted fr the emergency room. 2. Acute blood loss anemia. H and H have dropped since October: Again, plan as stated above. Will norma e n.p.o. after midnight. 3. History of aortic stenosis: Status post valve replaced in 2014. 4. Paroxysmal atrial fibrillation: Normal sinus rhythm now. Hold Coumadin. Does have a CHADS-VASc score of 5. 5. Hypertension: Resume medications as long as blood pressure stays stable. 6. Hyperlipidemia: Statin. 7. Chronic hypoxemic respiratory failure: 2 L at night, oxygen is stable. 8. History Streptococcus gallolyticus bacteremia: Completed a course of antibiotics. 9. Diet: Clears now. NPO after midnight. 10. Deep venous thrombosis prophylaxis: SCDs. 11. Disposition: Patient warrants observation/admission given concern for gastrointestinal bleed wa rranting serial H and H and gastroenterology consultation. /[id number]/MODL
[2017-11-28] MEDS: PANTOPRAZOLE SODIUM 40 MG VIAL IVP SCH (23:13)
[2017-11-29] MEDS ORDERED: PANTOPRAZOLE SODIUM 40 MG VIAL IVP SCH (00:39)
[2017-11-29 06:46] LABS: INR 4.56 (0.83-1.16); PROTIME(PATIENT) 42.7 SEC (12.0-15.0)
[2017-11-29] MEDS: PANTOPRAZOLE SODIUM 40 MG VIAL IVP SCH (08:36)
--- NOTE | 2017-11-29 08:57 | SOAPPROG ---
SOAP Progress Note Assessment/Plan: Assessment/Plan: Chart reviewed, pt. not seen yet, formal consultation to follow. Drop in Hct; suspect UGI bleed, exacerbated by overanticoagulation. With past history of ulcers, ? H. pylori. - EGD later today. Thanks! 11/29/17 08:56 Objective: Vital Signs Temp Pulse Resp BP Pulse Ox 36.8 C 58 L 16 134/58 H 97 11/29/17 07:26 11/29/17 07:26 11/29/17 07:26 11/29/17 07:26 11/29/17 07:26 Laboratory Results 11/29/17 05:15 PT 42.7 SEC (12.0-15.0) H 11/29/17 05:15 INR 4.56 (0.83-1.16) H 11/29/17 05:15 ICD10 Worksheet Patient Problems: Problems Problem Status Onset GI bleed Acute Aortic valvar stenosis Acute Atrial fibrillation Acute CVA (cerebral vascular accident) Acute Chest pain Acute Endocarditis Acute Facial weakness Acute Headache Acute Osteoarthritis of hip Acute
--- NOTE | 2017-11-29 10:01 | HOSPPROG ---
Hospitalist Progress Note Assessment/Plan: Patient is an 82-year-old female with history of aortic stenosis status post bioprosthetic replacement 2014, paroxysmal atrial fibrillation on oral anitcoagulation who was sent to the ER of concern for GI bleed. She had initially been treated with Eliquis after valve replacement and the nothing after that. She had allergic reaction to Eliquis was switched to Coumadin. For the past 2 weeks she has had black stools. Today is my 1st encounter with the patient. Chart reviewed. * GI bleed -likely an upper GI bleed -to get endoscopy later today -PPI * acute blood loss anemia -patient feeling light headed -will transfuse a unit of PRBC's now * aortic stenosis -status post valve replacement *Paroxysmal Atrial fibrillation -on OAC, which is on hold due to the above -CHADS-VASc score of 5 -may be a candidate for the watchman procedure due to the above *HTN -stable *hx of streptococcus gallolyticus bacteriemia -this occurred in August of this year, had treatment w abx *HLD -statin *Plan: cont NPO until she sees Dr Matias, with the significant drop in her H and H , she will require another midnight stay for serial monitoring of labs and close watching. spoke w Dr Matias, she has her procedure scheduled for one today. Subjective: Matilda is frustrated about waiting for her procedure. Objective: Vital Signs Temp Pulse Resp BP Pulse Ox 36.8 C 58 L 16 134/58 H 97 11/29/17 07:26 11/29/17 07:26 11/29/17 07:26 11/29/17 07:26 11/29/17 07:26 Laboratory Results 11/29/17 05:15 PT 42.7 SEC (12.0-15.0) H 11/29/17 05:15 INR 4.56 (0.83-1.16) H 11/29/17 05:15 - Physical Exam Constitutional: no apparent distress, not in pain, chronically ill appearing Eyes: PERRL Ears, Nose, Mouth, Throat: hearing normal Cardiovascular: regular rate and rhythym Respiratory: no respiratory distress Gastrointestinal: normoactive bowel sounds Skin: warm, No normal color (pale) Musculoskeletal: full muscle strength Neurologic: AAOx3 Psychiatric: interacting appropriately ICD10 Worksheet Patient Problems: Problems Problem Status Onset GI bleed Acute Aortic valvar stenosis Acute Atrial fibrillation Acute CVA (cerebral vascular accident) Acute Chest pain Acute Endocarditis Acute Facial weakness Acute Headache Acute Osteoarthritis of hip Acute
[2017-11-29] MEDS: METOPROLOL TARTRATE 25 MG TAB PO SCH ×2 (10:23→21:56)
[2017-11-29] MEDS ORDERED: ACETAMINOPHEN 325 MG TAB PO ONE (12:03)
[2017-11-29] MEDS ORDERED: MIDAZOLAM 2 MG/2 ML VIAL ONE (12:39)
[2017-11-29] MEDS ORDERED: fentaNYL 100 MCG/2 ML INJ ONE (12:40)
--- NOTE | 2017-11-29 12:59 | PDMN ---
Medical Necessity Medical necessity: C/M review: Patient meets INPT criteria under MCG M-180 Gastrointestinal Bleeding, Upper: Acute GI bleed, likely upper GI bleed, acute blood loss anemia, Hgb - 9.7, 8.6, 7.7, Hct 29.9, 26.5, 24.1, stool occult blood positive, INR 3.46, 4.56, lightheadedness, CHADS -VASc score of 5 - patient may be a candidate for the watchman procedure due to the above, requiring GI consult, planned 11/29/2017 EGD, 1 unit PRBC's thus far, ongoing NPO prior to EGD, IV NS 75 ml/hr. infusion, IV Protonix BID, serial Hgb, Hct monitoring Q 6 hrs., anticoagulation medication on hold, close monitoring, comorbid history of aortic stenosis S/P aortic valve replacement in 2014, paroxysmal atrial fibrillation on anticoagulation - Eliquis initially, allergic raction to Eliquis, changed to Coumadin, black stools for two weeks prior to this admission, hypertension, streptoccus bacteremia in August 2017, hyperlipidemia. GRAIN COMBINER anticipates > 2 MN LOS for ongoing med nec for eval and TX of above. Patient is Medicare Advantage which follows guidelines CMS puts forth.
--- NOTE | 2017-11-29 13:18 | PDPROPOC ---
Sedation Plan of Care Sedation Plan of Care: vital signs stable, mental status noted, patient educated of risks, benefits, alternatives, patient can tolerate sedation ASA Classification: ASA 2 Mallampati Score: Class 1 Mallampati Reference Image: Patient passed 3-3-2 rule?: Yes
[2017-11-29] MEDS ORDERED: PEG 3350/NA SULF,BICARB,CL/KCL (GAVILYTE-G) 4000 ML BTL PO ONE (13:31)
[2017-11-29] MEDS ORDERED: D5W 1/2 NS W/ 20 KCl/L 1,000 ML IV SCH (13:45)
--- NOTE | 2017-11-29 13:56 | GIREPORT ---
[facility] - Endoscopy Department Patient Name: Michela Duron Procedure Date: 11/29/2017 1:08 PM Patient Type: Inpatient Attending MD/ ER Physician: Miguel Matias MD Procedure: Upper GI endoscopy Indications: Note dictated, consult appreciated. Heartburn, r/b pepcid. Occasional dysphagia. Rectal exam with melena. Providers: Miguel Matias MD, [facility] Referring MD: Yana Hoff MD; [facility] Hospitalist service Medicines: Fentanyl 75 micrograms IV, Midazolam 3 mg IV Complications: No immediate complications. Description of Procedure: After obtaining informed consent, the endoscope was passed under direct vision. Throughout the procedure, the patient's blood pressure, pulse, and oxygen saturations were monitored continuously. The Endoscope was intro duced through the mouth, and advanced to the second part of duodenum. Findings: A single small erosion was found just above the gastroesophageal juncti on. The stomach was normal. The examined duodenum was normal. No blood seen. Estimated Blood Loss: Estimated blood loss: none. Post Op Diagnosis: - No obvious source of melena. A small erosion was seen in the lower esophagus, most likely due to heartburn. With her melena being two week s in duration, and her very elevated INR, it's possible this was worse sever al weeks ago, and the cause. However, with her last colonoscopy being five years ago, will do colonoscopy tomorrow to make sure no other potential cause (especially with the degree of her anemia and need for future anticoagulation). Recommendation: - clears; NPO p MN - prep; colonoscopy in A.M. - change to pepcid daily - change to D5 1/2NS with K - as an outpt., if significant trouble with dysphagia, please rerefer h er repeat EGD, off of anticoagulation, where we can dilate her. Thank you for allowing me to help in the management of this patient. Attending Participation: I personally performed the entire procedure. Polly Rivera MD Miguel Matias MD 11/29/2017 1:56:16 PM This report has been signed electronicallyPeter MD Polly Number of Addenda: 0 Note Initiated On: 11/29/2017 1:08 PM [email or web address]
--- NOTE | 2017-11-29 14:22 | GCON ---
[f rep st] CONSULTATION GI INPATIENT CONSULTATION DATE OF CONSULTATION: 11/29/2017 REFERRING PHYSICIAN: Shyann Cabello NP HISTORY OF PRESENT ILLNESS: I was kindly requested to see Baron by Shyann Cabello in consultation for a chief complaint of melena. She is an 82-year-old white female who has been having the above for 2 weeks. She was found to be anemic, and was admitted to the hospital. With the above, she has had some crampy abdominal pain. She denies aspirin, nonsteroidals. She is on Coumadin. She states she had an unremarkable colonoscopy about 5 years ago. She can get heartburn, almost daily; Pepcid as needed helps. She can have occasional dysphagia to solid foods. PAST MEDICAL HISTORY: 1. As above. 2. Aortic stenosis, with a bioprosthetic valve placed in 2014. 3. Paroxysmal atrial fibrillation. 4. Hypertension. 5. Elevated lipids. 6. Sleep apnea. 7. Chronic hypoxemic respiratory failure, on oxygen at night. 8. Strep bacteremia in August. 9. Distant history of peptic ulcer disease. 10. History of nonsustained V-tach. ALLERGIES: Include penicillin. OUTPATIENT MEDICATIONS: Include recent iron, B12. SOCIAL HISTORY: She is . FAMILY HISTORY: Negative for similar anemia. REVIEW OF SYSTEMS: Positive pertinent review of systems as per my HPI. Otherwise, complete review of systems is negative. PHYSICAL EXAM: GENERAL: Reveals a pleasant, nontoxic-appearing woman. CONSTITUTIONAL: Vital signs stable. SKIN: Warm, dry. EYES: Pupils equal, round, reactive to light and accommodation. EARS, NOSE, MOUTH, AND THROAT: Oropharynx without masses. Moist mucosa. CARDIOVASCULAR: Normal S2, normal PMI. RESPIRATORY: Lungs clear to auscultation and percussion anteriorly. GASTROINTESTINAL: Abdomen nontender, without masses. NEUROLOGIC: Grossly nonfocal, cranial nerves grossly intact. PSYCHIATRIC: Orientation and insight appropriate. MUSCULOSKELETAL: Strength grossly normal throughout. Normal station. LABORATORIES: Include a recent outpatient hematocrit of 36% as her baseline. On admission now, 29%, then 26%, now 24%. Normal MCV. Prothrombin time 42.7, INR 4.56. Normal CMP. Stool Hemoccult positive. ASSESSMENT: Melena. This could represent an upper gastrointestinal source. With her distant history of peptic ulcer disease, repeat peptic ulcer is possible. A colonic source 5 years later is possible, but less likely. I suspect her degree of bleeding was exacerbated by her overanticoagulation. PLAN: 1. I agree with holding Coumadin. 2. Upper endoscopy. Certainly, with her aortic valve replacement, atrial fibrillation, hypertension, elevated lipids, pulmonary disease, recent strep bacteremia, history of nonsustained ventricular tachycardia, etc., she is at increased risk for this procedure. However, suspected benefits outweigh the risks, and suspect she will do well. 3. Further management pending the above. Thank you for allowing me to help in the care of this patient. /[id number]/MODL MTDD
--- NOTE | 2017-11-29 15:31 | ASMTCMCOM ---
CM Note CM Note Notes: Pt admitted for melena in stools x two weeks and an elevated INR. History is extensive and includes aortic stenosis with a prosthetic valve, afib for which she takes Coumadin, HTN, hyperlipidemia, peptic ulcer disease, RADHIKA, chronic hypoxemic respiratory failure, she wears 2L of oxygen at night. The pt is and lives with her spouse in [place]. She has two children. GI consulted and an upper endoscopy is scheduled. Discharge needs remain unclear at this time. Anticipate pt will likely discharge home independently when stable. CM will continue to follow for any potential needs. Discharge Plan: To be determined Date Signed: 11/29/2017 03:30 PM Electronically Signed By:Kelsey La RN
[2017-11-29] MEDS: ATORVASTATIN CALCIUM 40 MG TAB PO SCH (21:55)
[2017-11-30] MEDS ORDERED: PANTOPRAZOLE SODIUM 40 MG TAB PO SCH (09:00)
[2017-11-30 09:20] LABS: INR 3.68 (0.83-1.16); PROTIME(PATIENT) 36.2 SEC (12.0-15.0)
[2017-11-30] MEDS ORDERED: MIDAZOLAM 2 MG/2 ML VIAL ONE (09:55)
[2017-11-30] MEDS ORDERED: fentaNYL 100 MCG/2 ML INJ ONE (09:55)
[2017-11-30] MEDS ORDERED: EPINEPHrine 1 MG/10 ML SYR IVP ONE (09:55)
[2017-11-30] MEDS ORDERED: PHYTONADIONE 10 MG in NS 50 ML IV ONE (10:46)
--- NOTE | 2017-11-30 11:03 | GIREPORT ---
[facility] Surgical Services - Endoscopy Department Patient Name: Michela Duron Procedure Date: 11/30/2017 9:56 AM Patient Type: Inpatient Attending MD/ ER Physician: Miguel Matias MD Procedure: Colonoscopy Indications: Melena. Hct presently 28.7. INR still above 3. Unremarkable EGD. Providers: Miguel Matias MD, [facility] Referring MD: Yana Hoff MD; [facility] Hospitalist service Medicines: Fentanyl 100 micrograms IV, Midazolam 4 mg IV Complications: No immediate complications. Description of Procedure: After obtaining informed consent, the scope was passed under direct vis ion. Throughout the procedure, the patient's blood pressure, pulse, and oxyg en saturations were monitored continuously. The Colonoscope was introduced through the anus and advanced to the terminal ileum. Findings: A 20 mm polyp was found in the ascending colon, with oozing of blood se en centrally. The polyp was sessile. Biopsies were taken with a cold force ps for histology x 4, away from the area of bleeding. Area was tattooed wi th an injection of 5 mL of Yecenia ink. Five sessile polyps were found in the sigmoid colon and ascending colon . The polyps were 4 to 7 mm in size. Left alone. Estimated Blood Loss: Estimated blood loss: none. Post Op Diagnosis: - One 20 mm polyp in the ascending colon, with active bleeding coming f rom it. Hard to say at this point if malignant or not. Suspect the continued bleeding is from her anticoagulation. Recommendation: - clears - reverse anticoagulation with Vit K, FFP - await pathology results (rushed). If malignant >> surgery. If benign >> we will repeat colonoscopy, in the setting of a normal INR, and remove via polypectomy (as well as remove her smaller polyps). - Thank you for allowing me to help in the management of this patient. Attending Participation: I personally performed the entire procedure. Polly Rivera MD Miguel Matias MD 11/30/2017 11:02:52 AM This report has been signed electronicallyPeter MD Polly Number of Addenda: 0 Note Initiated On: 11/30/2017 9:56 AM Total Procedure Duration Time 0 hours 22 minutes 39 seconds [email or web address]
[2017-11-30] MEDS ORDERED: FUROSEMIDE 20 MG/2 ML VIAL IVP ONE (11:34)
--- NOTE | 2017-11-30 11:34 | HOSPPROG ---
Hospitalist Progress Note Assessment/Plan: Patient is an 82-year-old female with history of aortic stenosis status post bioprosthetic replacement 2014, paroxysmal atrial fibrillation on oral anitcoagulation who was sent to the ER of concern for GI bleed. She had initially been treated with Eliquis after valve replacement and the nothing after that. She had allergic reaction to Eliquis was switched to Coumadin. For the past 2 weeks she has had black stools. Today is my 1st encounter with the patient. Chart reviewed. * GI bleed -s/p colonoscopy -she has one active bleeding polyp,? malignancy -biopsy pending, if malignant, will go to OR *elevated INR -getting Vitamin K and 3 units of FFP * acute blood loss anemia -s/p PRBC -hgb and hct improved with transfusion *Pruritus during transfusion -no fever or rash -order prn hydroxyzine, (patient is allergic to Benadryl) * aortic stenosis -status post valve replacement *Paroxysmal Atrial fibrillation -on OAC, which is on hold due to the above -CHADS-VASc score of 5 -may be a candidate for the watchman procedure due to the above *HTN -stable *hx of streptococcus gallolyticus bacteriemia -this occurred in August of this year, had treatment w abx *HLD -statin *Plan: awaiting biopsy, appreciate Dr Matias. Recheck labs in a.m., will give a dose of IV Lasix with getting multiple blood products, place on tele for closer monitoring. Subjective: Matilda is sleepy, no complaints. Objective: Vital Signs Temp Pulse Resp BP Pulse Ox 36.5 C 59 L 14 137/52 H 99 11/30/17 11:12 11/30/17 09:56 11/30/17 11:12 11/30/17 11:12 11/30/17 11:12 Laboratory Results 11/30/17 04:53 11/29/17 11/30/17 12/01/17 05:59 05:59 05:59 Intake Total 880 500 Balance 880 500 PT 36.2 SEC (12.0-15.0) H 11/30/17 08:20 INR 3.68 (0.83-1.16) H 11/30/17 08:20 - Physical Exam Constitutional: not in pain, chronically ill appearing Ears, Nose, Mouth, Throat: hearing normal Cardiovascular: regular rate and rhythym Respiratory: no respiratory distress Gastrointestinal: normoactive bowel sounds Skin: warm, No normal color (pale) Musculoskeletal: generalized weakness Neurologic: AAOx3 Psychiatric: interacting appropriately ICD10 Worksheet Patient Problems: Problems Problem Status Onset GI bleed Acute Aortic valvar stenosis Acute Atrial fibrillation Acute CVA (cerebral vascular accident) Acute Chest pain Acute Endocarditis Acute Facial weakness Acute Headache Acute Osteoarthritis of hip Acute
[2017-11-30] MEDS ORDERED: hydrOXYzine HCL 25 MG TAB PO PRN (12:40)
[2017-11-30] MEDS ORDERED: FAMOTIDINE 20 MG/NACL 50 ML IV ONE (12:41)
[2017-11-30] MEDS: METOPROLOL TARTRATE 25 MG TAB PO SCH ×2 (12:57→21:09)
[2017-11-30] MEDS: FAMOTIDINE 20 MG TAB PO SCH (12:57)
[2017-11-30] MEDS: ATORVASTATIN CALCIUM 40 MG TAB PO SCH (21:09)
[2017-12-01 05:33] LABS: PLATELET COUNT 157 10^3/uL (150-400)
[2017-12-01 05:43] LABS: INR 1.37 (0.83-1.16)
[2017-12-01] MEDS: FAMOTIDINE 20 MG TAB PO SCH (10:07)
[2017-12-01] MEDS: METOPROLOL TARTRATE 25 MG TAB PO SCH ×2 (10:07→20:17)
--- NOTE | 2017-12-01 10:20 | HOSPPROG ---
Hospitalist Progress Note Assessment/Plan: #Acute blood loss anemia: bleeding polyp on scope. Coumadin reversed with FFP, IV K+. Transfused 1 unit RBC -path likely back today; if malignant, will need surgery #Chronic hypoxemic resp failure: on O2 at night #: s/p AVR #HTN: hold anti-hypertensives with bleed #HLD: statin when taking PO #Diet: clears #Disp: cont inpatient admission for serial H/H, awaiting path Subjective: "feel weak". No abd pain. No BM today Objective: Vital Signs Temp Pulse Resp BP Pulse Ox 37.1 C 61 16 159/81 H 93 12/01/17 08:00 12/01/17 08:00 12/01/17 08:00 12/01/17 08:00 12/01/17 08:00 Laboratory Results 12/01/17 04:57 11/30/17 12/01/17 12/02/17 05:59 05:59 05:59 Intake Total 880 1884 Balance 880 1884 PT 17.0 SEC (12.0-15.0) H 12/01/17 04:57 INR 1.37 (0.83-1.16) H 12/01/17 04:57 - Time Spent With Patient Time Spent with Patient: greater than 35 minutes Time Spent with Patient: Greater than 35 minutes spent on this patients care, greater than 50% of time spent counseling, educating, and coordinating care regarding the above mentioned plan. - Physical Exam Constitutional: other (pale, NAD) Eyes: PERRL Ears, Nose, Mouth, Throat: moist mucous membranes Cardiovascular: regular rate and rhythym, no murmur, rub, or gallop Respiratory: no respiratory distress, no rales or rhonchi Gastrointestinal: normoactive bowel sounds, soft, non-tender abdomen, No tenderness Genitourinary: no bladder fullness Skin: warm Musculoskeletal: full muscle strength Neurologic: AAOx3, CN II-XII Intact ICD10 Worksheet Patient Problems: Problems Problem Status Onset GI bleed Acute Aortic valvar stenosis Acute Atrial fibrillation Acute CVA (cerebral vascular accident) Acute Chest pain Acute Endocarditis Acute Facial weakness Acute Headache Acute Osteoarthritis of hip Acute
[2017-12-01] MEDS: ACETAMINOPHEN 325 MG TAB PO PRN (10:42)
--- NOTE | 2017-12-01 16:57 | CPEKG ---
Heart Rate: 55 RR Interval: 1091 P-R Interval: 180 QRSD Interval: 90 QT Interval: 468 QTC Interval: 448 P [place]: 58 QRS [place]: 15 T Wave [place]: 85 EKG Severity - NORMAL ECG - EKG Impression: SINUS RHYTHM Electronically Signed By: Jaya Deras 03-Dec-2017 20:49:36
[2017-12-01] MEDS: ATORVASTATIN CALCIUM 40 MG TAB PO SCH (20:17)
--- NOTE | 2017-12-01 20:52 | SOAPPROG ---
SOAP Progress Note Assessment/Plan: Assessment/Plan: Colonic lesion; now, with reversal of anticoagulation, no signs of further bleeding. Path returns as adenocarcinoma. - case d/w hospitalist; she will contact surgeon, oncology. - if delay in removal, she can be restarted on a low-dose, reversible anticoagulant, such as lovenox. As per hospitalist. I will sign off; please call if we can be of further help [phone]. Thanks! 12/01/17 20:46 Subjective: cc: lower G.I. bleed No further e/o bleeding. No rigors, chills, sweats. 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 Physical Exam - Physical Exam General Appearance: WD/WN, alert, no apparent distress EENT: PERRL/EOMI, normal ENT inspection, pharynx normal, TMs normal Neck: non-tender, full range of motion, supple, normal inspection Respiratory: chest non-tender, lungs clear, normal breath sounds Cardiac/Chest: normal peripheral pulses, regular rate, rhythm Peripheral Pulses: 2+: carotid (R), carotid (L), femoral (R), femoral (L), dorsalis-pedis (R), dorsalis-pedis (L) Abdomen: normal bowel sounds, non-tender, soft Pelvic Exam: deferred Rectal: deferred Back: Normal inspection Skin: normal color, warm/dry Lymphatic: no adenopathy Extremities: normal range of motion, non-tender, normal inspection, normal capillary refill Neuro/Psych: no motor/sensory deficits, alert, normal mood/affect, oriented x 3 ICD10 Worksheet Patient Problems: Problems Problem Status Onset GI bleed Acute Aortic valvar stenosis Acute Atrial fibrillation Acute CVA (cerebral vascular accident) Acute Chest pain Acute Endocarditis Acute Facial weakness Acute Headache Acute Osteoarthritis of hip Acute
[2017-12-01] MEDS ORDERED: IOPAMIDOL (ISOVUE-300) 100 ML BTL ONE (22:05)
--- NOTE | 2017-12-02 22:30 | ASMTCMCOM ---
CM Note CM Note Notes: DANNI spoke to ASH Wayne regarding d/c POC. Pt may have bowel resection surgery tomorrow. Pt will most likely d/c independent when medically stable. CM available for changes. Plan: Independent Date Signed: 12/02/2017 02:13 PM Electronically Signed By:CALDERON Brantley
--- NOTE | 2017-12-02 22:30 | GCON ---
[f rep st] CONSULTATION ONCOLOGY CONSULTATION REASON FOR CONSULTATION: Newly diagnosed colon cancer. HISTORY OF PRESENT ILLNESS: The patient is an 82-year-old woman who is in the hospital room with her . I do not have access to her recent records, as she has been in the hospital a few times over the last 3 months. Things started about in August when she was having some stomach pain. Eventually, she had a blood culture that showed strep in the blood. She was treated with antibiotics. She had some vague abdominal discomfort, but reports a CT scan was unremarkable. She had evaluation through the dentist, her heart, kidneys, everything turned out okay. A colonoscopy was recommended I believe because she was anemic. It was initially delayed because of concerns of her aortic valve replacement and requiring Coumadin. However, a check her stool showed she had blood in her stool, so she underwent an upper endoscopy which was unremarkable and then a colonoscopy which showed a mass in the ascending colon. I believe the biopsies confirmed adenocarcinoma. She has not been seen by Surgery yet. She reports she has lost about 17 pounds over the last 3 months and she has had some fatigue, but no other constitutional symptoms. ALLERGIES: She is allergic to penicillins. HOME MEDICATIONS: Include cholecalciferol, calcium carbonate, omega-3 fatty acid, multivitamin, vitamin C, atorvastatin, Tylenol, metoprolol, warfarin, cyanocobalamin, multivitamins and I believe she was taking iron. PAST MEDICAL HISTORY: Chronic illnesses include aortic valve replacement with a bovine in 2014. Unsure as to the cause. It sounds like it might have been a congenital problem. She also has hypertension and hypercholesterol. PAST SURGICAL HISTORY: Includes both left hip and left knee replacements. 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 SOCIAL HISTORY: She is . Does not drink or smoke. FAMILY HISTORY: Mother from stomach cancer. Sister from colon cancer at age 83. Father of throat cancer. He was a smoker. She has 2 children. No history of cancer. REVIEW OF SYSTEMS: 10-point review of systems performed. Pertinent positives as per HPI, otherwise negative. PHYSICAL EXAM: VITAL SIGNS: Most recent vital have is temperature 36.6, pulse 69, blood pressure is 141/73, saturating 96% on room air. GENERAL: She is an elderly woman in no distress. HEENT: Unremarkable. LUNGS: Clear. CARDIAC: Regular with 2/6 systolic murmur. ABDOMEN: Soft, nontender, without hepatosplenomegaly. IAN: Reveals no peripheral lymphadenopathy. NEUROLOGIC : Grossly intact. I reviewed her colonoscopy results. EKG was read as normal. Iron sat 12%; ferritin 48.5. Path: mod differentiated adenocarcinoma CT: Transmural wall thickening in mid ascending colon. No sign of mets. Cholelithiasis. Small right pleural effusion. Prominent mediastinal lymphadenopathy; nonspecific. Trace ascites. IMPRESSION: 1. Colon cancer. 2. Probable iron deficiency. 3. Aortic valve replacement. 4. Irregular heart rhythm. PLAN: As long as that does not show any obvious signs of metastases, I agree with having Dr. Gould talk to her about resecting the cancer. I explained to her that it is the best shot for cure of this disease. If it has not spread to the lymph nodes then cure rate is better than 80%. If it has it is less, closer to 50% chance of cure, but then we can discuss pros and cons of adjuvant chemotherapy. Even elderly patients who are in reasonably good shape can have a survival benefit from adjuvant chemotherapy. I will follow up also on her labs and see if she is iron deficient. She might benefit from some intravenous iron prior to going to surgery. Cardiac clearance and timing of the surgery will be per Surgical Services. I will follow along with you while she is in the hospital. /[id number]/MODL MTDD
[2017-12-03 05:43] LABS: PLATELET COUNT 164 10^3/uL (150-400)
[2017-12-03] MEDS: METOPROLOL TARTRATE 25 MG TAB PO SCH ×3 (05:46→20:00)
[2017-12-03] MEDS: ATORVASTATIN CALCIUM 40 MG TAB PO SCH ×2 (05:46→20:00)
[2017-12-03] MEDS: FAMOTIDINE 20 MG TAB PO SCH ×2 (05:46→09:35)
[2017-12-03] MEDS ORDERED: SODIUM FERRIC GLUCONAT/SUCROSE 125 MG in NS 100 ML IV ONE (08:14)
--- NOTE | 2017-12-03 08:31 | PDCONSULT ---
Resume Specialist Note: 82 y/o female with blood loss anemia found to have an ascending colon adenocarcinoma and a new right pleural effusion. Hgb currently 9.0 with some fresh blood this AM. Will order IV iron as recommended by Dr. Fuchs and obtain pre-op ECHO to exclude pericardial effusion. I recommended cholecystectomy due to her prior history of streptococcal sepsis and prior AVR (bovine). Full note to follow. I anticipate surgery will be scheduled tomorrow midday. dictated #[id number] Lei Gould MD, FACS
[2017-12-03] MEDS: NS 1,000 ML IV SCH (09:34)
--- NOTE | 2017-12-03 11:24 | CPEKG ---
Heart Rate: 63 RR Interval: 952 P-R Interval: 184 QRSD Interval: 90 QT Interval: 464 QTC Interval: 476 P [place]: 62 QRS [place]: 31 T Wave [place]: 76 EKG Severity - NORMAL ECG - EKG Impression: SINUS RHYTHM Electronically Signed By: Jaya Deras 03-Dec-2017 20:49:40
--- NOTE | 2017-12-03 11:47 | ECHO ---
[email or web address] [address] [address] Main: [phone] Fax: Transthoracic Echocardiogram Name: HORTENCIA CUNNINGHAM MR#: [id number] Study Date: 12/03/2017 Study Time: 09:09 AM Date of : 1935 Age: 82 year(s) Height: 167.6 cm (66 in.) Weight: 77.11 kg (170 lb.) BSA: 1.87 m2 Gender: Female Examination: Echo Indication: Pre Op/ hx AVR Image Quality: Adequate Contrast: Requested by: Regino Gould BP: 168 mmHg/89 mmHg Heart Rate: Rhythm: Indication: Pre Op/ hx AVR Procedure Staff Soap Inspector: Beata Siegel RDCS Reading Physician: Dora Ruiz MD Requesting Provider: Conclusions: Normal size left ventricle. Mild concentric LV hypertrophy. Normal global systolic LV function. EF is 65 %. No regional wall motion abnormality. Grade 2 diastolic dysfunction (pseudonormalized LV filling pattern). Elevated left ventricular filling pressures.. Normal size right ventricle. Normal RV function. The right atrium is mildly dilated. Mild mitral annular calcification. Mild mitral valve regurgitation is present. normal trans aortic valve gradients Compared with 09/13/2017 tricuspid regurgitation has progressed significantly and severe pulmonary hypertension is now presentThe aortic valve is a bioprosthesis. Mild prosthesis regurgitation. Moderate to severe tricuspid valve regurgitation. Right ventricular systolic pressure measures 74mmHg. Measurements: Chambers Valvular Assessment AV/MV Valvular Assessment TV/PV Normal Normal Normal Name Value Range Name Value Range Name Value Range Ao Eda (2D): 2.6 cm (1.4 cm-2.6 AV Vmax: 2.10 m/s (1 m/s-1.7 TR Vmax: 4.15 mm/s ( - ) cm) m/s) TR PGmax: 69 mmHg ( - ) IVSd (2D): 1.0 cm (0.6 cm-1.1 AV maxP mmHg ( - ) syst. PAP: 74 mmHg ( - ) cm) AV meanP mmHg ( - ) PV Vmax: 1.06 m/s (0.6 m/s-0.9 LVDd (2D): 4.3 cm (3.9 cm-5.3 MALICK (VTI): 1.2 cm ( - ) m/s) cm) MV E Vmax: 1.39 m/s ( - ) PV PGmax: 4 mmHg ( - ) Patient: HORTENCIA CUNNINGHAM Study Date: 12/03/2017 Page 1 of 3 09:09 AM LVDs (2D): 2.9 cm (2.1 cm-4 MV A Vmax: 0.87 m/s ( - ) cm) MV E/A: 1.60 ( - ) LVPWd (2D): 1.0 cm ( - ) MV PHT: 0.061 s ( - ) LVOTd 1.6 cm 1.6 cm mm MVA (PHT): 3.6 s ( - ) LVEF (BP): 65 % (>=55 %) RVDd(2D): 3.6 cm (1.9 cm-3.8 cmmm) Continued Measurements: Chambers Valvular Assessment AV/MV Valvular Assessment TV/PV Name Value Name Value Name Value LADs: 4.2 cm MV DecTime: 197 m/s CVP (est.): 5 mmHg LADs Lon.8 cm MV E' Septal: 0.06 m/s LA Area: 20.0 cm2 MV E/E' Septal: 23.40 LA Volume: 64 ml MV E/E' Lateral: 14.90 LA Volume Index: 34.2 ml/m2 RA Area: 22.3 cm2 Additional Vessels Name Value Ao Ascendin.9 cm Inferior Vena Cava: 1.5 cm Findings: Left Ventricle: Normal size left ventricle. Mild concentric LV hypertrophy. Normal global systolic LV function. EF is 65 %. No regional wall motion abnormality. Grade 2 diastolic dysfunction (pseudonormalized LV filling pattern). Elevated left ventricular filling pressures.. Right Ventricle: Normal size right ventricle. Normal RV function. Left Atrium: The left atrium is normal in size. Right Atrium: The right atrium is mildly dilated. Mitral Valve: Mild mitral annular calcification. Mild mitral valve regurgitation is present. No mitral stenosis is present. Aortic Valve: The aortic valve is a bioprosthesis. The prosthetic aortic valve is normal. Mild prosthesis regurgitation. Tricuspid Valve: Moderate to severe tricuspid valve regurgitation. Right ventricular systolic pressure measures 74mmHg. The pulmonary artery pressure is severely increased. Pulmonic Valve: The pulmonic valve is normal in appearance and function. There is no pulmonic regurgitation seen. Aorta: The aorta is normal. Normal size aortic root measuring 2.6 cm. Normal size ascending aorta measuring 2.9 cm. IVC: The IVC is normal sized. Pericardium: No pericardial effusion. No pleural effusion. Exam Comments: (No Signature Object) Patient: HORTENCIA CUNNINGHAM Study Date: 12/03/2017 Page 2 of 3 09:09 AM Patient: HORTENCIA CUNNINGHAM Study Date: 12/03/2017 Page 3 of 3 09:09 AM [id number]
--- NOTE | 2017-12-03 12:51 | SOAPPROG ---
HONG Progress Note Assessment/Plan: E&M for colon cancer * Colon cancer: incompletely staged but CT promising for early stage disease. Agree with surgical resection as per Dr. Gould and will discuss findings when available. * GI bleeding: currently doing well * Aortic valve replacement and afib: will probably need to go back on anticoagulation per cards post op. * Iron deficiency: given iv iron. will see if she may need more post op Subjective: Met with Dr. Gould and planning for surgery. Tolerated IV iron and feels better. with patient. Objective: Vital Signs Temp Pulse Resp BP Pulse Ox 36.8 C 54 L 14 168/85 H 95 12/03/17 11:19 12/03/17 11:19 12/03/17 11:19 12/03/17 11:19 12/03/17 11:19 Laboratory Results 12/03/17 05:28 12/02/17 12/03/17 12/04/17 05:59 05:59 05:59 Intake Total 0 Balance 0 PT 17.0 SEC (12.0-15.0) H 12/01/17 04:57 INR 1.37 (0.83-1.16) H 12/01/17 04:57 Physical Exam - Physical Exam General Appearance: no apparent distress Respiratory: lungs clear Cardiac/Chest: regular rate, rhythm ICD10 Worksheet Patient Problems: Problems Problem Status Onset GI bleed Acute Aortic valvar stenosis Acute Atrial fibrillation Acute CVA (cerebral vascular accident) Acute Chest pain Acute Endocarditis Acute Facial weakness Acute Headache Acute Osteoarthritis of hip Acute
--- NOTE | 2017-12-03 13:31 | GCON ---
[f rep st] CONSULTATION SURGICAL CONSULTATION CHIEF COMPLAINT: Adenocarcinoma of the ascending colon. HISTORY OF PRESENT ILLNESS: Patient is an 82-year-old female with a recently diagnosed adenocarcinom a of the ascending colon. Patient was admitted with lower GI bleeding and had been noted to be anemi c as far back as August of this year when she was admitted to the hospital for streptococcal septicemi a. In the course of that workup, patient had an abdominal CT which showed gallstones but no other ab normalities, and she was advised to have outpatient endoscopic workup of her anemia; a source of her streptococcal septicemia had never been identified. Patient reports passing some fresh blood this morning. She was anticoagulated with warfarin at time of admission with an INR greater than 4. She received one unit of packed red blood cells and one uni t of fresh frozen plasma and her INR has normalized since that time. Patient reports a 14-15 pound w eight loss over the last 3 months that she attributes to her multiple hospitalizations and episode of septicemia. PAST MEDICAL HISTORY: Significant for right thoracotomy in 1995 for what was subsequently found to b e a hamartoma. She has had an aortic valve replacement with a bovine prosthesis in 2016, and has rem ained anticoagulated since that time. CURRENT MEDICATIONS: Include Lipitor 40 mg at bedtime, Pepcid 20 mg p.o. daily, hydroxyzine 25 mg q. 8 hours p.r.n., metoprolol 12.5 mg p.o. twice daily, Zofran 4 mg p.o. q.4 hours p.r.n. nausea, vomiti ng. HABITS: Patient is a former smoker, having quit many years prior and denies significant alcohol use. SOCIAL HISTORY: Patient is for 61 years, accompanied by her . FAMILY HISTORY: Patient's sister of metastatic colon cancer at age 83. REVIEW OF SYSTEMS: Patient denies chest pain, shortness of breath. She does occasionally get ankle swelling. She has had no cough or sputum production. She has had a 14-15 pound weight loss over the last 3 months and was previously admitted to the hospital in August with a streptococcal septicemia o f unknown origin. At that time, she was followed by the [facility] and Dr. Dodge in particular. PHYSICAL EXAMINATION: GENERAL: Reveals a pleasant elderly woman who was in no acute distress. LI L SIGNS: Blood pressure 168/85, heart rate is 54, temperature is 36.8, respiratory rate 14, O2 satur ation is 95% on 2 L. HEENT: There is mild jugular venous distention. Trachea is midline. LUNGS: Clear with diminished breath sounds at the right base. HEART: Regular in rate and rhythm with a gra de 3 systolic ejection murmur. ABDOMEN: Soft, nontender, without palpable mass or hepatosplenomegal y. There is no umbilical or ventral hernia. EXTREMITIES: Significant for trace pitting edema. Ped al pulses are +2 and symmetrical. IMAGING STUDIES: Reviewed. Patient's CT shows near circumferential thickening of the ascending colo n with contrast in the colon. Patient has calcified gallstones. No free air or free fluid of signif icance. There is a trace right pleural effusion and evidence of prior right lower lobectomy. LABORATORY STUDIES: WBC 3.5, hemoglobin 9.0, hematocrit 27, platelets are 164. PT was 17 with an IN R of 1.3, K was 4.0, and creatinine is 0.8. LFTs are normal. CEA was 1.6. IMPRESSION: 1. Adenocarcinoma of the ascending colon. 2. Aortic valve replacement with bovine prosthesis and cardiac murmur, last echocardiogram August of 2017. 3. New right pleural effusion. 4. Status post right lower lobectomy in 1995 for hamartoma. 5. Moderate blood loss anemia. RECOMMENDATIONS: We will obtain an echocardiogram. Administer iron as recommended by Dr. Maciej Fuchs and prepare the patient for surgical resection tomorrow if cleared medically. We discussed the proce dure, anticipated recovery and potential stage of disease which at this point shows no evidence of me tastasis based on the available imaging. /[id number]/MODL
--- NOTE | 2017-12-03 16:11 | HOSPPROG ---
Hospitalist Progress Note Assessment/Plan: Patient is an 82-year-old female with history of aortic stenosis status post bioprosthetic replacement 2014, paroxysmal atrial fibrillation on oral anticoagulation who was sent to the ER of concern for GI bleed. She had initially been treated with Eliquis after valve replacement. She had allergic reaction to Eliquis was switched to Coumadin. For the past 2 weeks she has had black stools. *Colonic adenocarcinoma -reviewed her care w Dr Gould -surgery tomorrow *elevated INR -was reversed w Vitamin K and FFP * acute blood loss anemia -s/p PRBC -getting iron infusion *Pruritus during transfusion -no fever or rash -order prn hydroxyzine, (patient is allergic to Benadryl) * aortic stenosis -status post valve replacement *Paroxysmal Atrial fibrillation -on OAC, which is on hold due to the above -CHADS-VASc score of 5 -may be a candidate for the watchman procedure due to the above -had one bout of afib w RVR and then resolved on it's own *HTN -bp elevated at 188/88 -resume home med *hx of streptococcus gallolyticus bacteriemia -this occurred in August of this year, had treatment w abx *HLD -statin *Plan: echo was done, asked cardiology to see and further evaluate prior to surgery, cont clears Subjective: Matilda is feeling fine. Objective: Vital Signs Temp Pulse Resp BP Pulse Ox 36.4 C 57 L 14 188/86 H 95 12/03/17 15:31 12/03/17 15:31 12/03/17 15:31 12/03/17 15:31 12/03/17 15:31 Laboratory Results 12/03/17 05:28 12/02/17 12/03/17 12/04/17 05:59 05:59 05:59 Intake Total 0 Balance 0 PT 17.0 SEC (12.0-15.0) H 12/01/17 04:57 INR 1.37 (0.83-1.16) H 12/01/17 04:57 - Physical Exam Constitutional: not in pain, chronically ill appearing Eyes: PERRL Ears, Nose, Mouth, Throat: hearing normal Cardiovascular: regular rate and rhythym Respiratory: no respiratory distress, reduced air movement (right base) Skin: warm, No normal color (pale) Musculoskeletal: full muscle strength Neurologic: AAOx3 Psychiatric: interacting appropriately ICD10 Worksheet Patient Problems: Problems Problem Status Onset GI bleed Acute Aortic valvar stenosis Acute Atrial fibrillation Acute CVA (cerebral vascular accident) Acute Chest pain Acute Endocarditis Acute Facial weakness Acute Headache Acute Osteoarthritis of hip Acute
--- NOTE | 2017-12-03 16:58 | GCON ---
[f rep st] CONSULTATION CARDIOLOGY CONSULT. DATE OF CONSULTATION: 12/03/2017 PRIMARY HEALTH AND SAFETY INSTRUCTOR: Dr. Shabbir George. CHIEF COMPLAINT: New diagnosis of pulmonary hypertension. Preoperative evaluation. HISTORY OF PRESENT ILLNESS: We were asked by Dr. Steve Gould to visit with the patient. The patient is a pleasant 82-year-old female with hypertension, dyslipidemia, history of aortic valve replacement in 2016 at the [facility], paroxysmal atrial fibrillation. She was admitted on November 28 with lower GI bleeding and diagnosed with colon cancer. INR was 4 at the time. The plan is for colectomy with Dr Larry Gould tomorrow. She did have an echocardiogram today to further evaluate murmur heard on exam. Normal LV function. Normal biventricular size and systolic function. Fairly normal function of the aortic valve prosthes is. New moderate to severe tricuspid regurgitation with estimated RV systolic pressure of 74 mmHg. This was not appreciated on her August 2017 echocardiogram. Upon my evaluation, the patient reports that when she goes into atrial fibrillation, she does note ch est tightness. She has been noticing some exertional fatigue and some mild exertional dyspnea. Occa sional presyncope without syncope. She does notice palpitations when she has atrial fibrillation. S he is having no chest pain, palpitations, or dyspnea at present at rest. No lower extremity edema. She rides a stationary bike about 5 minutes per time 3 times per day. REVIEW OF SYSTEMS: A full 10-point review of systems was performed, notable for that which is outlin ed above. Additionally, she has been having lower GI bleeding. ALLERGIES: Penicillin. PAST MEDICAL HISTORY: 1. Hypertension. 2. Dyslipidemia. 3. Status post bioprosthetic aortic valve replacement with Dr. Briggs at the [facility] in 2015. 4. Recently diagnosed colon cancer. 5. Paroxysmal atrial fibrillation. 6. Moderate to severe tricuspid regurgitation. 7. Severe pulmonary hypertension. 8. Anemia. 9. History of lung resection for hamartoma remotely. 10. Nocturnal hypoxia treated with oxygen therapy. 11. Status post total knee replacement. 12. Status post cataract surgery. OUTPATIENT MEDICATIONS: Warfarin directed by INR. Lipitor 40 mg daily, vitamin D, vitamin B12, meto prolol 12.5 mg twice daily, multivitamin. SOCIAL HISTORY: The patient does not smoke cigarettes. She drinks alcohol rarely. Her daughter is involved in her care and is at the bedside. FAMILY HISTORY: Her sister of colon cancer. PHYSICAL EXAM: VITAL SIGNS: Blood pressure is 180/86, but has been running lower than this througho ut the day. Her heart rate is 57, oxygen saturation 95% on 2 L nasal cannula. She is afebrile. GEN ERAL: A pale, somewhat ill-appearing older female. HEENT: Sclerae clear. No jaundice. Mucous mem branes are moist. Normocephalic, atraumatic. CARDIOVASCULAR: JVP is approximately 14 cm water. Re gular rate and rhythm with 2/6 early peaking systolic ejection murmur at the base and 2/6 holosystoli c murmur at the left lower sternal border. LUNGS: Clear to auscultation bilaterally, without wheeze , rhonchi, or rales. ABDOMEN: Soft, without obvious masses. She has minimal right lower quadrant t enderness. EXTREMITIES: Warm and well perfused, without cyanosis, clubbing, or edema. NEURO: Aler t and oriented x3, without gross focal neurologic deficits. Appropriate mood and affect. LABORATORY DATA: White count 3.59, hematocrit 27, and platelets are 164. INR 1.37. Comprehensive m etabolic panel was normal on November 28. Stool occult blood is positive. She has received 1 unit of red cells and 3 units of FFP. EKG dated 12/02/2017, reviewed by me: Sinus rhythm at 63 beats per minute. No ischemic changes. Ec hocardiogram reviewed by me and detailed above. Abdominal CT dated 12/01/2017: Mid ascending colon transmural wall thickening consistent with known malignant disease. Cholelithiasis. Mediastinal lymphadenopathy. Small right pleural effusion. Tra ce ascites. ASSESSMENT AND PLAN: An 82-year-old female with cardiac history that includes bioprosthetic aortic v alve replacement, paroxysmal atrial fibrillation, currently in sinus rhythm, hypertension. Most rece nt echo shows new worsening tricuspid regurgitation and pulmonary hypertension. She also requires co amarilis resection for ongoing bleeding and colon cancer. 1. Tricuspid regurgitation. Pulmonary hypertension: She is not in florid right heart failure. Thi s has not been demonstrated on previous echos, but is likely more of a chronic process than an acute process. This can be further evaluated as an outpatient. Perhaps she requires more detailed sleep m edicine evaluation (she does wear oxygen at night but not CPAP at this point). She did have a chest CT with contrast that did not mention any pulmonary emboli, but this could be re-evaluated by re-look ing at the CT. At this point, we need to keep her systolic pressure certainly above 90, as her estim ated RV systolic pressure is in the 70s. This does increase her perioperative risk in terms of hemod ynamic shifts. She may require some Lasix postoperatively, but I would avoid over-diuresis given mert t she is somewhat preload dependent in the setting of her TR and pulmonary hypertension. She did not have bypass at the time of her aortic valve replacement, so does not have obstructive coronary disea se. 2. Colon cancer, anemia, GI bleeding: She does require urgent colectomy. INR has been mostly corre cted. I explained that she is a moderately high-risk patient for a moderately high-risk procedure. She and her daughter understand the risks and would like to proceed with colon surgery with Dr. Gould. Continue beta blockers. Please have the patient cared for postoperatively on 2 with telemetry . 3. Paroxysmal atrial fibrillation: Continue metoprolol. She is currently in sinus rhythm. Resume warfarin when stable from a bleeding and postsurgical standpoint. 4. Aortic valve replacement: Functioning fairly well on echocardiogram. Ejection fraction normal. 5. Systemic hypertension: She is running a little bit high now. Continue beta blockers. Avoid hyp otension. Thank you for allowing us to participate in the patient's care. We will follow with you. /[id number]/MODL
[2017-12-04] MEDS: NS 1,000 ML IV SCH (03:39)
[2017-12-04 05:47] LABS: INR 1.4 (0.83-1.16); PROTIME(PATIENT) 17.3 SEC (12.0-15.0)
[2017-12-04] MEDS: METOPROLOL TARTRATE 25 MG TAB PO SCH ×2 (09:02→20:04)
[2017-12-04] MEDS: FAMOTIDINE 20 MG TAB PO SCH (09:02)
[2017-12-04] MEDS ORDERED: POLYMYXIN B SULFATE 500,000 UNIT/10 ML SYR IRR ONE (10:34)
[2017-12-04] MEDS ORDERED: BACITRACIN 50,000 UNITS/10 ML SYR IRR ONE (10:34)
[2017-12-04] MEDS ORDERED: BUPIVACAINE 0.25% 30 ML SDV ONE (10:34)
--- NOTE | 2017-12-04 10:54 | PDANEPAE ---
ANE History of Present Illness 82 year old female w/ complicated cardiac history (AV replacement, recent development of severe tricuspid valve regurgitation, Severe Pulm HTN, paroxysmal A. Fib), HTN, HLD and anemia (diagnosed with colon cancer) presents for partial colectomy and cholecystectomy. Patient seen and evaluated by cardiology. Patient is moderate to high risk for a moderate to high risk procedure. ANE Past Medical History - Cardiovascular History Hx Hypertension: Yes Hx Arrhythmias: No Hx Coronary Artery / Peripheral Vascular Disease: No Hx CHF / Valvular Disease: Yes Cardiovascular History Comment: HIGH CHOL. "VALVE IS CORRODED BUT IS STABLE". Severe Tricuspid regurg (developed this in past couple months). Severe Pulmonary HTN - Pulmonary History Hx COPD: No Hx Asthma/Reactive Airway Disease: No Hx Recent Upper Respiratory Infection: No Hx Oxygen in Use at Home: Yes O2 in Use at Home (L/minute): 2 Hx Sleep Apnea: Yes Sleep Apnea Screening Result - Last Documented: Positive Pulmonary History Comment: RADHIKA POSITIVE - Neurologic History Hx Cerebrovascular Accident: No Hx Seizures: No Hx Dementia: No - Endocrine History Hx Diabetes: No Hypothyroid: No Hyperthyroid: No Obesity: no - Renal History Hx Renal Disorders: No - Liver History Hx Hepatic Disorders: No - Neurological & Psychiatric Hx Hx Neurological and Psychiatric Disorders: No - Cancer History Hx Cancer: Yes Cancer History Comment: Colon Cancer - Congenital Disorder History Hx Congenital Disorders: No - GI History Hx Gastrointestinal Disorders: Yes Gastrointestinal History Comment: OCCASSIONAL REFLUX USES PEPCID OTC PRN - Other Health History Other Health History: NONE - Chronic Pain History Chronic Pain: No - Surgical History Prior Surgeries: CATARACT SURGERIES IN 2011 AND 2012. 1996 LUNG BIOPSY WAS BENIGN ANE Review of Systems Review of Systems: - Exercise capacity Exercise capacity: <4 METS ANE Patient History - Allergies Allergies/Adverse Reactions: Penicillins Allergy (Verified 11/28/17 16:41) Hives - Home Medications Home medications: home medication list seen and reviewed Home Medications: Ascorbic Acid [Vitamin C 250 mg (*)] 500 mg PO DAILY 09/13/17 [Last Taken ] Atorvastatin Calcium [Lipitor 40 mg (*)] 40 mg PO HS 09/13/17 [Last Taken ] Calcium Carbonate [Oyster Shell Calcium 500 mg (*)] 500 mg PO DAILY 09/13/17 [ Last Taken 11/28/17] Cholecalciferol Vit D3 [Vitamin D3 (*)] 1,000 units PO DAILY 09/13/17 [Last Taken 11/28/17] Multivitamins [Multivitamin (*)] 1 each PO DAILY 09/13/17 [Last Taken 11/28/17] [place]-3 Fatty Acids [Fish Oil 1000 mg (*)] 1,000 mg PO DAILY 09/13/17 [Last Taken 11/28/17] Cyanocobalamin [Vitamin B12 (*)] 1,000 mcg PO DAILY 10/21/17 [Last Taken ] Herbals/Supplements -Info Only 1 ea PO DAILY 10/21/17 [Last Taken Unknown] Warfarin Sodium [Coumadin 5MG (*)] 5 mg PO SUMOWEFR@10/21/17 [Last Taken 02/07] Multivitamins [Multivitamin (*)] 1 each PO DAILY 11/28/17 [Last Taken 11/28/17] Warfarin Sodium [Coumadin 2.5MG (*)] 2.5 mg PO TUTHSA@11/28/17 [Last Taken ] - NPO status NPO Status: no food or drink >8 hours NPO Since - Liquids (Date): 11/30/17 NPO Since - Liquids (Time): 00:00 NPO Since - Solids (Date): 11/30/17 NPO Since - Solids (Time): 00:00 - Anes Hx Anes Hx: no prior problems - Smoking Hx Smoking Status: Former smoker - Family Anes Hx Family Hx Anesthesia Complications: NONE ANE Labs/Vital Signs - Labs Result Diagrams: 12/03/17 05:28 11/28/17 18:12 - Vital Signs Vital Signs: reviewed preoperatively; see RN documention for details Blood Pressure: 154/74 Heart Rate: 53 Respiratory Rate: 16 O2 Sat (%): 96 Height: 167.64 cm Weight: 77.111 kg ANE Physical Exam - Airway Mallampati Score: Class 2 Mouth exam: normal dental/mouth exam - Pulmonary Pulmonary: reduced air movement - Cardiovascular Cardiovascular: regular rate and rhythym, systolic murmur - ASA Status ASA Status: III ANE Anesthesia Plan Anesthesia Plan: general endotracheal anesthesia Lines/Monitors: arterial line Total IV Anesthesia: No
[2017-12-04] MEDS ORDERED: cefOXitin SODIUM 2 GM in NS 100 ML IV ONE (11:00)
[2017-12-04] MEDS ORDERED: levOFLOXACIN 500 MG/DEXTROSE 100 ML IV ONE (11:00)
--- NOTE | 2017-12-04 11:14 | PDCONSULT ---
Construction Technology Instructor Note: Michela is resting comfortably awaiting surgery. She has not had any further bleeding. INR is 1.4 this AM. ECHO shows TVR with high RV pressures increasing anesthetic risk. We discussed the procedure, risks and expected recovery. Informed consent was obtained Lei Gould MD, FACS
[2017-12-04] MEDS ORDERED: PROPOFOL 200 MG/20 ML VIAL ONE (11:33)
[2017-12-04] MEDS ORDERED: fentaNYL 100 MCG/2 ML INJ ONE ×5 (11:33→15:59)
[2017-12-04] MEDS ORDERED: DEXAMETHASONE 4 MG/ML VIAL ONE (12:44)
[2017-12-04] MEDS ORDERED: ONDANSETRON 4 MG/2 ML VIAL ONE (12:44)
[2017-12-04] MEDS ORDERED: LR 500 ML IV PRN (12:53)
[2017-12-04] MEDS ORDERED: PHENYLEPHRINE HCL 100 MCG/ML SYR IVP PRN (12:53)
[2017-12-04] MEDS ORDERED: NALOXONE HCL 0.4 MG/ML INJ IVP PRN (12:53)
[2017-12-04] MEDS ORDERED: ONDANSETRON 4 MG/2 ML VIAL IVP PRN (12:53)
[2017-12-04] MEDS ORDERED: LIDOCAINE 2% JELLY 5 ML TUBE ONE (14:05)
[2017-12-04] MEDS ORDERED: LIDOCAINE 2% 5 ML SDV ONE (14:05)
[2017-12-04] MEDS ORDERED: ROCURONIUM 50 MG/5 ML VIAL ONE ×2 (14:05)
[2017-12-04] MEDS ORDERED: LIDOCAINE 1% 300 MG/30 ML SDV ONE (14:21)
[2017-12-04] MEDS ORDERED: IOPAMIDOL (ISOVUE-300) 100 ML BTL ONE (14:21)
[2017-12-04] MEDS ORDERED: SUGAMMADEX SODIUM 200 MG/2 ML VIAL IVP ONE (14:26)
[2017-12-04] MEDS ORDERED: HYDROmorphONE/DILAUDID 1 MG/ML INJ ONE ×3 (15:03→16:39)
[2017-12-04] MEDS: HYDROmorphONE/DILAUDID 1 MG/ML INJ IVP PRN ×5 (15:05→16:54)
[2017-12-04] MEDS: fentaNYL 100 MCG/2 ML INJ IVP PRN ×3 (15:05→16:00)
--- NOTE | 2017-12-04 15:08 | POSTOPPROG ---
Post Op Note Date of Operation: 12/04/17 (#[id number]) Surgeon: Regino Gould (, FACS) Anesthesiologist: Flo Chen MD Anesthesia: GET(General Endotracheal) Pre-op Diagnosis: adenocarcinoma ascending colon, chronic cholecystitis Procedure: 1. lap right colectomy 2. lap cholecystectomy Findings: tumor confirmed by pathology Inf/Abcess present in the surg proc area at time of surgery?: No EBL: 100-500 (400)
--- NOTE | 2017-12-04 15:23 | POSTANESTH ---
Post Anesthetic Evaluation Cardiovascular Status: Similar to Pre-Op Cond Respiratory Status: Similar to Pre-op Cond. Level of Consciousness/Mental Status: Can Participate in Eval, Alert and Oriented Pain Control: Adequate, Prn Tx Ordered Nausea/Vomiting Control: Adequate, Prn Tx Ordered Complications Possibly Related to Anesthesia: None Noted
--- NOTE | 2017-12-04 15:50 | GOP ---
[f rep st] OPERATIVE REPORT DATE OF OPERATION: 12/04/2017 SURGEON: Regino Gould MD, FACS ANESTHESIA: General endotracheal. ANESTHESIOLOGIST: Flo Chen MD. PREOPERATIVE DIAGNOSIS: 1. Ascending colon adenocarcinoma. 2. Cholelithiasis and probable chronic cholecystitis. POSTOPERATIVE DIAGNOSIS: 1. Ascending colon adenocarcinoma. 2. Cholelithiasis and probable chronic cholecystitis. PROCEDURE PERFORMED: 1. Laparoscopic assisted right colectomy. 2. Laparoscopic cholecystectomy. FINDINGS: Tattooed previous biopsy of malignant polyp in the ascending colon noted without evidence of transmural penetration of the tumor. Extensive inflammatory changes around the gallbladder consistent with prior attacks of acute cholecystitis and chronic cholecystitis. Patient had a recent episode of streptococcal bacteremia in August of 2017, and the etiology remained unclear. She was brought to the operating room for laparoscopic right colectomy and if she remained stable under anesthesia, I recommended laparoscopic cholecystectomy concurrently. ESTIMATED BLOOD LOSS: 400 cc for the gallbladder portion of the operation. DESCRIPTION OF PROCEDURE: After informed consent was obtained, the patient was brought to the operating room and placed under general anesthesia. The abdomen was prepped and draped in the usual fashion. A Urbina catheter had been placed. SCD stockings were in place. Before proceeding, a time-out and identification the patient was performed. 0.25% Marcaine was used to infiltrate the infraumbilical skin. A longitudinal incision was made, and with ventral traction applied to the abdominal wall with penetrating towel clips, a Veress needle was introduced into the peritoneal cavity and position was confirmed by saline infusion. A pneumoperitoneum was established with CO2 gas to a pressure of 12 mmHg, which the patient's blood pressure tolerated it quite well. The Veress needle was withdrawn and replaced with a 12 mm bladeless trocar. This allowed introduction of a 30-degree scope. Additional 5 mm ports were placed, part way between the umbilicus and the xiphoid in the midline and 1 in the right upper quadrant midclavicular line. This allowed introduction of atraumatic grasping forceps, as well as the Harmonic Scalpel. This was used to dissect the hepatic flexure and ascending colon from the lateral peritoneal attachments. The omentum was mobilized from the proximal transverse colon completely liberating the ascending colon and hepatic flexure. The appendix appeared normal. The cecum and terminal ileum were mobilized near the pelvic brim and a quick survey of the peritoneal cavity showed no obvious evidence of metastatic disease. The gallbladder was encased in scar tissue and omental adhesions from what appeared to be prior attacks of cholecystitis. After the colon was fully mobilized, an access incision was made in the right mid abdomen lateral to the rectus sheath, incising transversely after performing a TAP block with .25% marcaine . The peritoneal cavity was entered. The bowel was mobilized after an Tyson wound protector was deployed, and the proximal and distal margins of resection identified. The bowel was divided just past the terminal ileum with a single firing of the YAJAIRA stapler and just beyond the hepatic flexure with a second firing of the YAJAIRA stapler. The intervening mesentery was primarily taken down with the Harmonic Scalpel with exception of the ileocolic vessels, which were clamped, divided, and ligated with 2-0 Vicryl suture ligature. After the bowel was completely from the mesentery, it was removed from the field and submitted for gross inspection followed by permanent section. Bowel continuity was then re-established with a hand-sewn 2 layered side-to- side isoperistaltic anastomosis as follows. The posterior row of the anastomosis was performed with interrupted 3-0 Vicryl sutures. Parallel enterotomies were performed in the posterior inner row of the anastomosis was performed with continuous running 3-0 Vicryl suture. This was continued anteriorly in a mucosal inverting fashion. After the inner row was completed, the anterior outer row was completed with interrupted 3-0 Vicryl sutures in a Lembert fashion. Upon completion, the anastomosis was intact without undue tension. It was returned to the peritoneal cavity. The Tyson wound protector was removed, and gowns, gloves, and instruments were changed as part of a clean closure protocol. The access incision was closed with 2- 0 Vicryl and 0 PDS suture after irrigating the wound with saline. The abdomen was re-insufflated with CO2 gas to a pressure of 12mm Hg which did not cause any hemodynamic instability. The dense adhesions around the gallbladder were taken down with cautery dissection. The fundus was retracted and the peritoneum around the cystic duct and artery were carefully dissected. After both were clearly visualized they were hemoclipped and divided sharply. The gallbladder was dissected away from the liver with cautery dissection. The posterior wall of the gallbladder was densely adherent to the liver and dissection proved to be difficult. Bleeding from the bed suggested an element of portal hypertension.The gallbladder was detached and set aside. Hemostasis was ultimately achieved using cautery, hemoclips and topical surgicel with an estimated blood loss of 400ml. The gallbladder was retrieved through the umbilical port site using an Endopouch. Reinspecting the operative field demonstrated that hemostasis was secure and the area was irrigated and aspirated. The pneumoperitoneum was evacuated. All ports were removed. The infraumbilical fascial defect was repaired with interrupted 0 Vicryl sutures, subcutaneous tissues with 3-0 Monocryl suture,, and skin with 3-0 Monocryl suture in a subcuticular fashion. Dermabond was applied. Needle, sponge, and instrument count were correct. /[id number]/MODL MTDD
--- NOTE | 2017-12-04 16:02 | HOSPPROG ---
Hospitalist Progress Note Assessment/Plan: Patient is an 82-year-old female with history of aortic stenosis status post bioprosthetic replacement 2014, paroxysmal atrial fibrillation on oral anticoagulation who was sent to the ER of concern for GI bleed. She had initially been treated with Eliquis after valve replacement. She had allergic reaction to Eliquis was switched to Coumadin. For the past 2 weeks she has had black stools. *Colonic adenocarcinoma -surgery this morning w Dr Gould *elevated INR -was reversed w Vitamin K and FFP * acute blood loss anemia -s/p PRBC -getting iron infusion *Pruritus during transfusion -no fever or rash -order prn hydroxyzine, (patient is allergic to Benadryl) * aortic stenosis -status post valve replacement -needs higher blood pressures *Paroxysmal Atrial fibrillation -on OAC, which is on hold due to the above -CHADS-VASc score of 5 -may be a candidate for the watchman procedure due to the above -had one bout of afib w RVR and then resolved on it's own *HTN -bp elevated at 188/88 -resume home med *hx of streptococcus gallolyticus bacteriemia -this occurred in August of this year, had treatment w abx *HLD -statin *Plan: was seen and evaluated by cardiology, appreciate Dr Ruiz's involvement. Subjective: Matilda is leaving for surgery during my evaluation, has no complaints. Objective: Vital Signs Temp Pulse Resp BP Pulse Ox 36.0 C 53 L 16 154/74 H 95 12/04/17 14:49 12/04/17 11:17 12/04/17 11:17 12/04/17 11:17 12/04/17 15:38 Laboratory Results 12/04/17 15:36 12/03/17 12/04/17 12/05/17 05:59 05:59 05:59 Intake Total 1404 Balance 1404 PT 17.3 SEC (12.0-15.0) H 12/04/17 05:10 INR 1.40 (0.83-1.16) H 12/04/17 05:10 - Physical Exam Constitutional: no apparent distress, appears nourished, not in pain Eyes: PERRL Ears, Nose, Mouth, Throat: hearing normal Respiratory: no respiratory distress Skin: warm Neurologic: AAOx3 Psychiatric: interacting appropriately ICD10 Worksheet Patient Problems: Problems Problem Status Onset GI bleed Acute Aortic valvar stenosis Acute Atrial fibrillation Acute CVA (cerebral vascular accident) Acute Chest pain Acute Endocarditis Acute Facial weakness Acute Headache Acute Osteoarthritis of hip Acute
--- NOTE | 2017-12-04 16:47 | PDCARPN ---
Cardiology Progress Note Assessment/Plan: Assessment/plan: 82-year-old female with history of hypertension, paroxysmal atrial fibrillation, status post AVR in 2016. She is now admitted with anemia and GI bleeding and found of colon cancer. On her preoperative echocardiogram she had normal function of her bioprosthetic aortic valve, normal LV systolic function, but moderate to severe tricuspid regurgitation with severe pulmonary hypertension. She is now postop day 0 with status post colectomy. 1. Pulmonary hypertension: Unclear etiology. She is not in right heart failure. She is hemodynamically stable. She does not require diuretics at this time. Further evaluation as an outpatient. I would start with sleep medicine evaluation and also consider pulmonary consultation. 2. Valvular heart disease: Normal function of aortic bioprosthesis. Moderate to severe tricuspid regurgitation. She is euvolemic. Serial echocardiograms as an outpatient. 3. Colon cancer/status post colectomy/iron deficiency anemia: Per Internal Medicine surgery. 4. Systemic hypertension: Currently stable 5. Paroxysmal atrial fibrillation: Currently in sinus rhythm. Continue beta- blockers. Resume Coumadin when feasible from a bleeding/postoperative standpoint. We will sign off. Please call with questions or concerns. 12/04/17 16:44 Subjective: Patient is seen in the PAC U. She is having some postoperative abdominal pain but denies cardiovascular symptoms. Objective: Vital Signs (8 Hrs) Temp Pulse Resp BP Pulse Ox 12/04/17 15:38 95 12/04/17 14:49 36.0 C 97 12/04/17 11:17 53 L 16 154/74 H 96 12/04/17 11:11 37.0 C 64 16 203/71 H 100 Intake/Output (24 Hrs) 12/03/17 12/04/17 12/05/17 05:59 05:59 05:59 Intake Total 1404 Balance 1404 Intake: Oral (ml) 500 IV Infused (ml) 904 Ns 1,000 ml @ 75 mls/hr 904 IV CONT NOREEN Rx#: [id number] Other: Weight 77.111 kg Number of Voids Toilet 3 8 Number of Stools Toilet 1 Fatigued. Slightly sleepy postoperatively new line regular rate and rhythm with 2/6 early peaking systolic ejection murmur at the base. 2/6 holosystolic murmur at the left lower sternal border Lungs clear anteriorly and laterally No lower extremity edema Result Diagrams: 12/04/17 15:36 11/28/17 18:12 ICD10 Worksheet Patient Problems: Problems Problem Status Onset Osteoarthritis of hip Acute Aortic valvar stenosis Acute Atrial fibrillation Acute Facial weakness Acute CVA (cerebral vascular accident) Acute Endocarditis Acute Chest pain Acute Headache Acute GI bleed Acute
[2017-12-04] MEDS: cefOXitin SODIUM 2 GM in NS 100 ML IV SCH ×2 (18:33→23:28)
[2017-12-04] MEDS: ACETAMINOPHEN 325 MG TAB PO PRN (19:23)
[2017-12-04] MEDS: ATORVASTATIN CALCIUM 40 MG TAB PO SCH (20:04)
[2017-12-05] MEDS: ACETAMINOPHEN 325 MG TAB PO PRN ×4 (02:42→23:47)
[2017-12-05 04:10] LABS: PLATELET COUNT 193 10^3/uL (150-400)
[2017-12-05 04:26] LABS: INR 1.43 (0.83-1.16); PROTIME(PATIENT) 17.6 SEC (12.0-15.0)
[2017-12-05] MEDS: cefOXitin SODIUM 2 GM in NS 100 ML IV SCH (05:37)
--- NOTE | 2017-12-05 08:33 | SOAPPROG ---
SOAP Progress Note Assessment/Plan: Assessment: s/p lap right colectomy + lap cholecystectomy moderate blood loss anemia remains hemodynamically stable Plan: will start VTE prophylaxis today with LMWH and oral Coumadin continue sips of liquids until ileus resolves 12/05/17 08:28 Subjective: sitting up at the bedside/only taking Tylenol for pain, mild nausea Objective: Vital Signs Temp Pulse Resp BP Pulse Ox 37.2 C 63 16 118/54 L 95 12/05/17 07:17 12/05/17 07:17 12/05/17 07:17 12/05/17 07:17 12/05/17 07:17 Laboratory Results 12/05/17 03:20 12/05/17 03:20 12/04/17 12/05/17 12/06/17 05:59 05:59 05:59 Intake Total 1404 2190 120 Output Total 800 Balance 1404 1390 120 PT 17.6 SEC (12.0-15.0) H 12/05/17 03:20 INR 1.43 (0.83-1.16) H 12/05/17 03:20 - Pending Discharge Pending Discharge Within 24 Hours: No Pending Discharge Within 48 Hours: No Physical Exam - Physical Exam General Appearance: no apparent distress Respiratory: lungs clear, decreased breath sounds Cardiac/Chest: regular rate, rhythm Abdomen: soft, distended, other (surgical sites uncomplicated) Pelvic Exam: deferred Rectal: deferred Skin: normal color, pallor Neuro/Psych: alert, normal mood/affect ICD10 Worksheet Patient Problems: Problems Problem Status Onset GI bleed Acute Aortic valvar stenosis Acute Atrial fibrillation Acute CVA (cerebral vascular accident) Acute Chest pain Acute Endocarditis Acute Facial weakness Acute Headache Acute Osteoarthritis of hip Acute
[2017-12-05] MEDS ORDERED: WARFARIN SODIUM 5 MG TAB PO ONE (08:34)
[2017-12-05] MEDS: FAMOTIDINE 20 MG TAB PO SCH (08:38)
[2017-12-05] MEDS: METOPROLOL TARTRATE 25 MG TAB PO SCH ×2 (08:38→19:50)
[2017-12-05] MEDS ORDERED: ENOXAPARIN 40 MG/0.4 ML SYR SC SCH (09:00)
--- NOTE | 2017-12-05 11:49 | SOAPPROG ---
[facility] Progress Note Assessment/Plan: E&M for colon cancer * Colon cancer: s/p partial coloectomy 12/04. Path pending. Will discuss situation further when path returns. * GI bleeding: resolved * Aortic valve replacement and afib: will probably need to go back on anticoagulation per cards post op. * Iron deficiency: given iv iron. will see if she may need more post op Subjective: Did well with surgery yesterday. Denies pain this am. Objective: Vital Signs Temp Pulse Resp BP Pulse Ox 36.4 C 68 15 139/59 H 96 12/05/17 11:05 12/05/17 11:05 12/05/17 11:05 12/05/17 11:05 12/05/17 11:05 Laboratory Results 12/05/17 03:20 12/05/17 03:20 12/04/17 12/05/17 12/06/17 05:59 05:59 05:59 Intake Total 1404 2190 360 Output Total 800 Balance 1404 1390 360 PT 17.6 SEC (12.0-15.0) H 12/05/17 03:20 INR 1.43 (0.83-1.16) H 12/05/17 03:20 Physical Exam - Physical Exam General Appearance: no apparent distress Respiratory: lungs clear Cardiac/Chest: regular rate, rhythm Abdomen: normal bowel sounds, non-tender, soft ICD10 Worksheet Patient Problems: Problems Problem Status Onset GI bleed Acute Aortic valvar stenosis Acute Atrial fibrillation Acute CVA (cerebral vascular accident) Acute Chest pain Acute Endocarditis Acute Facial weakness Acute Headache Acute Osteoarthritis of hip Acute
--- NOTE | 2017-12-05 11:53 | ASMTCMCOM ---
CM Note CM Note Notes: CM spoke to Connor RN and TYRELL Boothe regarding d/c POC. Shyann is going to put in an order for therapies. Needs are TBD at this time. CM to follow. Plan: TBD Date Signed: 12/05/2017 11:52 AM Electronically Signed By:CALDERON Brantley
--- NOTE | 2017-12-05 13:43 | HOSPPROG ---
Hospitalist Progress Note Assessment/Plan: Patient is an 82-year-old female with history of aortic stenosis status post bioprosthetic replacement 2014, paroxysmal atrial fibrillation on oral anticoagulation who was sent to the ER of concern for GI bleed. She had initially been treated with Eliquis after valve replacement. She had allergic reaction to Eliquis was switched to Coumadin. For the past 2 weeks she has had black stools. *Colonic adenocarcinoma -s/p colectomy and cholecystectomy (POD #1) -path pending -oncology involved with her care -pain is well managed w tylenol *pulmonary htn -no right sided heart failure -she wears O2 at night, but not CPAP -should get an OP sleep study *valvular heart disease -s/p aortic valve and had moderate to severe TR -recommendation by cardiology is to get serial echo's *elevated INR (on admission) -was reversed w Vitamin K and FFP * acute blood loss anemia -s/p PRBC -getting iron infusion * aortic stenosis -status post valve replacement -needs higher blood pressures *Paroxysmal Atrial fibrillation -reviewed electronic device monitor;she is in sinus -CHADS-VASc score of 5 *HTN -bp elevated at 139/58 -resume home med *hx of streptococcus gallolyticus bacteriemia -this occurred in August of this year, had treatment w abx *HLD -statin *Plan: lmwh and Coumadin initiated, INR to be monitored. Subjective: Matilda has no complaints, feeling well, has no abd pain, not passing flatus. Objective: Vital Signs Temp Pulse Resp BP Pulse Ox 36.4 C 68 15 139/59 H 96 12/05/17 11:05 12/05/17 11:05 12/05/17 11:05 12/05/17 11:05 12/05/17 11:05 Laboratory Results 12/05/17 03:20 12/05/17 03:20 12/04/17 12/05/17 12/06/17 05:59 05:59 05:59 Intake Total 1404 2190 360 Output Total 800 Balance 1404 1390 360 PT 17.6 SEC (12.0-15.0) H 12/05/17 03:20 INR 1.43 (0.83-1.16) H 12/05/17 03:20 - Physical Exam Constitutional: no apparent distress, not in pain Eyes: PERRL Ears, Nose, Mouth, Throat: hearing normal Cardiovascular: regular rate and rhythym, edema (bilateral lower extremity) Respiratory: no respiratory distress, reduced air movement Gastrointestinal: distension (slight), No normoactive bowel sounds (few bowel sounds noted), No tenderness, No guarding Skin: warm Musculoskeletal: generalized weakness Neurologic: AAOx3 Psychiatric: interacting appropriately ICD10 Worksheet Patient Problems: Problems Problem Status Onset GI bleed Acute Aortic valvar stenosis Acute Atrial fibrillation Acute CVA (cerebral vascular accident) Acute Chest pain Acute Endocarditis Acute Facial weakness Acute Headache Acute Osteoarthritis of hip Acute
[2017-12-05] MEDS: ATORVASTATIN CALCIUM 40 MG TAB PO SCH (19:52)
[2017-12-06 04:19] LABS: INR 2.11 (0.83-1.16); PROTIME(PATIENT) 23.7 SEC (12.0-15.0)
[2017-12-06 04:36] LABS: PLATELET COUNT 137 10^3/uL (150-400)
[2017-12-06] MEDS: METOPROLOL TARTRATE 25 MG TAB PO SCH ×2 (07:51→21:06)
[2017-12-06] MEDS: FAMOTIDINE 20 MG TAB PO SCH (07:51)
[2017-12-06] MEDS: ACETAMINOPHEN 325 MG TAB PO PRN ×2 (07:51→15:03)
--- NOTE | 2017-12-06 09:37 | SOAPPROG ---
[facility] Progress Note Assessment/Plan: Assessment: s/p lap right colectomy + lap cholecystectomy- resolving post op ileus moderate blood loss anemia/INR 2.1 this AM remains hemodynamically stable/transfusion in progress Plan: full liquid diet/monitor Hgb hold LMWH and continue coumadin 12/05/17 08:28 12/06/17 09:36 Subjective: resting comfortably/moderate incisional pain with movement/ambulating in [place] passing small amount of liquid stool, no flatus Objective: Vital Signs Temp Pulse Resp BP Pulse Ox 36.3 C 62 17 131/61 H 94 12/06/17 07:57 12/06/17 07:51 12/06/17 07:57 12/06/17 07:51 12/06/17 07:57 Laboratory Results 12/06/17 03:07 12/05/17 03:20 12/05/17 12/06/17 12/07/17 05:59 05:59 05:59 Intake Total 2190 1110 Output Total 800 500 Balance 1390 610 PT 23.7 SEC (12.0-15.0) H 12/06/17 03:07 INR 2.11 (0.83-1.16) H 12/06/17 03:07 - Pending Discharge Pending Discharge Within 24 Hours: No Pending Discharge Within 48 Hours: No Physical Exam - Physical Exam General Appearance: no apparent distress Respiratory: lungs clear, decreased breath sounds Abdomen: soft, distended, other (incisions o.k./hypoactive bowel sounds) Neuro/Psych: alert, normal mood/affect ICD10 Worksheet Patient Problems: Problems Problem Status Onset GI bleed Acute Aortic valvar stenosis Acute Atrial fibrillation Acute CVA (cerebral vascular accident) Acute Chest pain Acute Endocarditis Acute Facial weakness Acute Headache Acute Osteoarthritis of hip Acute
[2017-12-06] MEDS: traMADol 50 MG TAB PO PRN (13:12)
--- NOTE | 2017-12-06 13:45 | ASMTCMCOM ---
CM Note CM Note Notes: PT recommending home vs HHC. OT recommending home. Met with pt to discuss; pt declines need for HHC. Pt states she lives with her & has a son/daughter in law that live next door & has plenty of family support. Anticipate dc home when medically stable. CM available if needs/changes. Date Signed: 12/06/2017 01:44 PM Electronically Signed By:Krystal Seay RN
[2017-12-06] MEDS ORDERED: WARFARIN SODIUM 2.5 MG TAB PO ONE (16:00)
--- NOTE | 2017-12-06 16:48 | HOSPPROG ---
Hospitalist Progress Note Assessment/Plan: 82 yo female with history of aortic stenosis status post bioprosthetic replacement 2015, paroxysmal atrial fibrillation on oral anticoagulation who was admitted with melanotic stool. C-scope revealed 2 cm polyp and path confirmed adenoca. *Colonic adenocarcinoma -s/p colectomy and cholecystectomy (POD #2) -path pending -oncology involved -poor pain control with tylenol, prn tramadol added *pulmonary htn with RVSP 70 -no right sided heart failure -maintain SBP >90 -she wears O2 at night, but not CPAP -should get an OP sleep study *valvular heart disease -s/p aortic valve and had moderate to severe TR -outpt f/u with cardiology for serial echos *elevated INR (on admission) - reversed w Vitamin K and FFP * acute blood loss anemia -s/p PRBC and iron infusion -hgb down to 6.9 today, will transfuse another unit prbc's today -hold lovenox and coumadin * aortic stenosis -status post valve replacement -needs higher blood pressures *Paroxysmal Atrial fibrillation - Chads-vasc 5, now in sinus -resume anti-coagulation when deemed safe by surgery *HTN -cont home meds *hx of streptococcus gallolyticus bacteriemia -this occurred in August of this year, had treatment w abx *HLD -statin *DVT PPLX - SCD's, lovenox held with dropping hgb, resume as per surgery recs *Dispo - cont inpt Subjective: Pt c/o abdominal pain this am, right sided mostly near incision. No fevers/chills. +BM, no flatus. SHe is tolerating diet. Ambulating. Objective: Vital Signs Temp Pulse Resp BP Pulse Ox 36.6 C 56 L 14 149/69 H 95 12/06/17 15:47 12/06/17 15:47 12/06/17 15:47 12/06/17 15:47 12/06/17 15:47 Laboratory Results 12/06/17 15:10 12/05/17 03:20 12/05/17 12/06/17 12/07/17 05:59 05:59 05:59 Intake Total 2190 1110 431 Output Total 800 500 Balance 1390 610 431 PT 23.7 SEC (12.0-15.0) H 12/06/17 03:07 INR 2.11 (0.83-1.16) H 12/06/17 03:07 - Physical Exam Constitutional: no apparent distress Eyes: PERRL Ears, Nose, Mouth, Throat: moist mucous membranes Cardiovascular: regular rate and rhythym Respiratory: no respiratory distress, clear to auscultation Gastrointestinal: other (soft, mild distention, mild TTP right side of abdomen near incision, no r/r/g, +BS) Skin: warm Musculoskeletal: full muscle strength Neurologic: AAOx3 Psychiatric: interacting appropriately ICD10 Worksheet Patient Problems: Problems Problem Status Onset GI bleed Acute Aortic valvar stenosis Acute Atrial fibrillation Acute CVA (cerebral vascular accident) Acute Chest pain Acute Endocarditis Acute Facial weakness Acute Headache Acute Osteoarthritis of hip Acute
[2017-12-06] MEDS: ATORVASTATIN CALCIUM 40 MG TAB PO SCH (21:06)
[2017-12-07 04:34] LABS: INR 1.86 (0.83-1.16); PROTIME(PATIENT) 21.5 SEC (12.0-15.0)
[2017-12-07 04:40] LABS: PLATELET COUNT 170 10^3/uL (150-400)
[2017-12-07] MEDS: ACETAMINOPHEN 325 MG TAB PO PRN ×3 (07:54→21:12)
[2017-12-07] MEDS: METOPROLOL TARTRATE 25 MG TAB PO SCH ×2 (07:55→21:06)
[2017-12-07] MEDS: FAMOTIDINE 20 MG TAB PO SCH (07:55)
--- NOTE | 2017-12-07 08:47 | SOAPPROG ---
[facility] Progress Note Assessment/Plan: Assessment: s/p lap right colectomy + lap cholecystectomy- resolving post op ileus moderate blood loss anemia/INR 1.8 this AM Plan: low fiber diet as tolerated/monitor Hgb hold LMWH and continue coumadin anticipate stable for discharge from surgical viewpoint next 24 hours and patient wants to go home 12/05/17 08:28 12/06/17 09:36 12/07/17 08:46 Subjective: resting comfortably/incisional pain...but only asking for Tylenol/took 1/2 Tramadol last night +BM Objective: Vital Signs Temp Pulse Resp BP Pulse Ox 36.6 C 60 20 145/59 H 99 12/07/17 07:32 12/07/17 07:32 12/07/17 07:32 12/07/17 07:32 12/07/17 07:32 Laboratory Results 12/07/17 03:25 12/05/17 03:20 12/06/17 12/07/17 12/08/17 05:59 05:59 05:59 Intake Total 1110 681 Output Total 500 Balance 610 681 PT 21.5 SEC (12.0-15.0) H 12/07/17 03:25 INR 1.86 (0.83-1.16) H 12/07/17 03:25 - Pending Discharge Pending Discharge Within 24 Hours: Yes Pending Discharge Date: 12/08/17 Pending Discharge Time: 11:00 Physical Exam - Physical Exam General Appearance: no apparent distress Cardiac/Chest: regular rate, rhythm Abdomen: soft, distended, other (incisions healing well without signs of infection) Pelvic Exam: deferred Rectal: deferred Extremities: pedal edema Neuro/Psych: alert, normal mood/affect ICD10 Worksheet Patient Problems: Problems Problem Status Onset GI bleed Acute Aortic valvar stenosis Acute Atrial fibrillation Acute CVA (cerebral vascular accident) Acute Chest pain Acute Endocarditis Acute Facial weakness Acute Headache Acute Osteoarthritis of hip Acute
--- NOTE | 2017-12-07 09:37 | HOSPPROG ---
Hospitalist Progress Note Assessment/Plan: 82 yo female with history of aortic stenosis status post bioprosthetic replacement 2014, paroxysmal atrial fibrillation on oral anticoagulation who was admitted with melanotic stool. C-scope revealed 2 cm polyp and path confirmed adenoca. *Colonic adenocarcinoma - recovering well without complications -s/p colectomy and cholecystectomy (POD #3) -path pending -oncology involved -pain control with tylenol, prn tramadol *pulmonary htn with RVSP 70 -no right sided heart failure -maintain SBP >90 -she wears O2 at night, but not CPAP -should get an OP sleep study *valvular heart disease -s/p aortic valve and had moderate to severe TR -outpt f/u with cardiology for serial echos *elevated INR (on admission) - reversed w Vitamin K and FFP -back on coumadin * acute blood loss anemia -s/p PRBC and iron infusion * aortic stenosis -status post valve replacement -needs higher blood pressures *Paroxysmal Atrial fibrillation - Chads-vasc 5, now in sinus -resume anti-coagulation, pharmacy to dose coumadin *HTN -cont home meds *hx of streptococcus gallolyticus bacteriemia -this occurred in August of this year, had treatment w abx *HLD -statin *DVT PPLX - SCD's, INR on the rise *Dispo - cont inpt Subjective: PT doing well. Up in chair. Passing gas and having BM's, tolerating diet. Pain controlled with tylenol. No fevers. Objective: Vital Signs Temp Pulse Resp BP Pulse Ox 36.6 C 60 20 145/59 H 99 12/07/17 07:32 12/07/17 07:32 12/07/17 07:32 12/07/17 07:32 12/07/17 07:32 Laboratory Results 12/07/17 03:25 12/05/17 03:20 12/06/17 12/07/17 12/08/17 05:59 05:59 05:59 Intake Total 1110 681 Output Total 500 Balance 610 681 PT 21.5 SEC (12.0-15.0) H 12/07/17 03:25 INR 1.86 (0.83-1.16) H 12/07/17 03:25 - Physical Exam Constitutional: no apparent distress Eyes: PERRL Ears, Nose, Mouth, Throat: moist mucous membranes Cardiovascular: regular rate and rhythym Respiratory: no respiratory distress, clear to auscultation Gastrointestinal: normoactive bowel sounds, soft, non-tender abdomen Skin: warm Musculoskeletal: full muscle strength Neurologic: AAOx3 Psychiatric: interacting appropriately ICD10 Worksheet Patient Problems: Problems Problem Status Onset GI bleed Acute Aortic valvar stenosis Acute Atrial fibrillation Acute CVA (cerebral vascular accident) Acute Chest pain Acute Endocarditis Acute Facial weakness Acute Headache Acute Osteoarthritis of hip Acute
[2017-12-07] MEDS ORDERED: WARFARIN SODIUM 5 MG TAB PO ONE (16:00)
[2017-12-07] MEDS: traMADol 50 MG TAB PO PRN (16:24)
[2017-12-07] MEDS: ATORVASTATIN CALCIUM 40 MG TAB PO SCH (21:06)
[2017-12-08] MEDS: traMADol 50 MG TAB PO PRN (01:18)
[2017-12-08 04:31] LABS: INR 2.1 (0.83-1.16); PROTIME(PATIENT) 23.6 SEC (12.0-15.0)
--- NOTE | 2017-12-08 06:01 | SOAPPROG ---
SOGUANAKO Progress Note Assessment/Plan: Assessment: s/p lap right colectomy + lap cholecystectomy- resolving post op ileus moderate blood loss anemia/INR 1.8 this AM Plan: low fiber diet as tolerated/monitor Hgb hold LMWH and continue coumadin anticipate stable for discharge from surgical viewpoint next 24 hours and patient wants to go home 12/05/17 08:28 12/06/17 09:36 12/07/17 08:46 Subjective: emesis x 2, BM x 2, denies nausea Objective: Vital Signs Temp Pulse Resp BP Pulse Ox 36.9 C 70 20 134/59 H 95 12/08/17 03:24 12/08/17 03:24 12/08/17 03:24 12/08/17 03:24 12/08/17 03:24 Laboratory Results 12/07/17 03:25 12/05/17 03:20 12/06/17 12/07/17 12/08/17 05:59 05:59 05:59 Intake Total 1110 681 300 Output Total 500 Balance 610 681 300 PT 23.6 SEC (12.0-15.0) H 12/08/17 03:24 INR 2.10 (0.83-1.16) H 12/08/17 03:24 Physical Exam - Physical Exam General Appearance: no apparent distress Respiratory: lungs clear, decreased breath sounds Cardiac/Chest: regular rate, rhythm Abdomen: soft, distended, other (incisions o.k.) Pelvic Exam: deferred Rectal: deferred Skin: normal color, warm/dry Neuro/Psych: alert, normal mood/affect, oriented x 3 ICD10 Worksheet Patient Problems: Problems Problem Status Onset GI bleed Acute Aortic valvar stenosis Acute Atrial fibrillation Acute CVA (cerebral vascular accident) Acute Chest pain Acute Endocarditis Acute Facial weakness Acute Headache Acute Osteoarthritis of hip Acute
[2017-12-08] MEDS: FAMOTIDINE 20 MG TAB PO SCH (09:12)
[2017-12-08] MEDS: METOPROLOL TARTRATE 25 MG TAB PO SCH ×2 (09:12→21:43)
--- NOTE | 2017-12-08 13:36 | HOSPPROG ---
Hospitalist Progress Note Assessment/Plan: DIAGNOSES: *Colonic adenocarcinoma - recovering well without complications -s/p colectomy and cholecystectomy (POD #3) * acute on chronic hypoxemic respiratory failure / pulmonary htn with RVSP 70 -maintain SBP >90 -at home she wears O2 at night, but not CPAP; should get an OP sleep study *valvular heart disease and atrial fibrillation, chronic paroxysmal, chads Vasc 5 -rate control is good so far -s/p aortic valve and had moderate to severe TR -requires standard Coumadin dosing INR 2.5-3.5 *elevated INR (on admission) - reversed w Vitamin K and FFP -back on coumadin INR now at 2.1 slightly below range as we allow it to come up * acute blood loss anemia -s/p PRBC transfusion of 2 units and iron infusion -should be recheck tomorrow as her eye anticoagulation comes up to make sure she does not lead further *HTN -cont home meds *DVT PPLX - -SCD's -was off medicine due to bleeding, now on Coumadin with INR in good range for DVT prevention PLANS: -continue to increase ambulation -continue Coumadin and follow INR closely -recheck hemoglobin tomorrow -suspect will probably discharge tomorrow Seen by me today on hospitals rounds as well as multidisciplinary rounds SUBJECTIVE: Overall she is feeling better with decreased pain, eating better though appetite not yet normal., having loose stools but her bowels are moving. She is not having fevers. She is not really short of breath and is getting up for some ambulation. She is needing some oxygen around the clock OBJECTIVE Vitals reviewed: Some mild hypertension intermittently otherwise overall stable without fever Printing Machine Operator, my review: Currently in sinus Exam: alert oriented skin warm dry color ok resps not labored lungs clear BSs heart regular abd soft nondistended nontender, bowel sounds present limbs warm, no edema iv site ok INR 2.1 Objective: Vital Signs Temp Pulse Resp BP Pulse Ox 36.8 C 68 11 L 154/63 H 93 12/08/17 11:47 12/08/17 11:47 12/08/17 11:47 12/08/17 11:47 12/08/17 11:47 Laboratory Results 12/07/17 03:25 12/05/17 03:20 12/07/17 12/08/17 12/09/17 06:59 06:59 06:59 Intake Total 681 300 Balance 681 300 PT 23.6 SEC (12.0-15.0) H 12/08/17 03:24 INR 2.10 (0.83-1.16) H 12/08/17 03:24 - Time Spent With Patient Time Spent with Patient: greater than 35 minutes Time Spent with Patient: Greater than 35 minutes spent on this patients care, greater than 50% of time spent counseling, educating, and coordinating care regarding the above mentioned plan. ICD10 Worksheet Patient Problems: Problems Problem Status Onset GI bleed Acute Aortic valvar stenosis Acute Atrial fibrillation Acute CVA (cerebral vascular accident) Acute Chest pain Acute Endocarditis Acute Facial weakness Acute Headache Acute Osteoarthritis of hip Acute
[2017-12-08] MEDS ORDERED: WARFARIN SODIUM 4 MG TAB PO SCH (16:00)
[2017-12-08] MEDS: ATORVASTATIN CALCIUM 40 MG TAB PO SCH (21:43)
[2017-12-09 04:18] LABS: INR 2.66 (0.83-1.16); PROTIME(PATIENT) 28.3 SEC (12.0-15.0)
[2017-12-09 07:44] VITALS: BP 126/59
[2017-12-09] MEDS: METOPROLOL TARTRATE 25 MG TAB PO SCH (08:05)
[2017-12-09] MEDS: FAMOTIDINE 20 MG TAB PO SCH (08:05)
--- NOTE | 2017-12-09 08:43 | PDCONSULT ---
Blending Line Attendant Note: patient is resting comfortably/no further nausea or emesis Abd: soft/incisions healing well without signs of infection final path pending Imp: s/p right colectomy for bleeding adenoCA, ascending colon tolerating low residue diet final path is pending Rec: continue low residue diet initially as outpatient FU my office December 15 for staple removal discussed importance of medical/cardiology FU as outpatient S MD Bryanna, FACS
--- NOTE | 2017-12-09 10:21 | PDDCSUM ---
Discharge Summary Discharge Summary: DISCHARGE DIAGNOSES: -Adenocarcioma of Ascending Colon -Lower GI bleed -Post hemorrhagic Anemia -chronic cholecystitis -Chronic Hypoxemic Resp Failure -Pulmonary HTN -Chronic Paroxysmal A Fib, rate controlled on Chronic anticoagulation; mildly excessive anticoagulation at time of admission -deconditioning and the gait instability -4 - 5 small polyps remain in the colon CONSULTANTS: Doctors Regino Gould, Miguel Matias and Maciej Fuchs PROCEDURES: -colonoscopy and EGD with biopsies of a 22 mm ascending colon lesion positive for add no CA -laparoscopic partial colectomy with removal of cancer and lymph nodes from the ascending colon -laparoscopic cholecystectomy -transfusion of 2 units of packed red blood cells without any reaction HOSPITAL COURSE SUMMARY: Michela is an 82-year-old woman who came to the hospital with lower GI bleeding. She was somewhat anemic though notably this was a normocytic anemia and appeared to be more of an acute blood loss anemia. Colonoscopy and upper endoscopy were done in the main finding was a 22 mm sessile polyp in the ascending colon along with some smaller polyps in the descending colon. The large polyp in the ascending colon was biopsied with the result coming back as adenocarcinoma. She then went to the operating room with Dr. Regino Gould who did partial colectomy and also incidentally a cholecystectomy due to presence of chronic cholecystitis. Overall the patient tolerated the procedure well and had a reasonably uneventful postop recovery. She was fairly weak and it took several days to get her up and going out on her feet but she is now ambulating in the hallway without difficulty. She does require oxygen which is not surprising given her chronic respiratory failure oxygen at home. She did have some worsening of anemia after surgery and required a couple of units of red blood cell transfusion. At this time she is eating her bowels are working she is fairly comfortable and ready to go home with her . We will be setting up some home care to check in on her. Her final pathology report is pending so we do not know if she has disease in lymph nodes are not nor the depth of penetration into the bowel wall with this tumor. She was seen here by Dr. Fuchs and will review with him in clinic the final pathology report for staging and final recommendations. Notably the patient did have an echocardiogram here which showed preserved ejection fraction at 65%, however she does have pulmonary hypertension measured at 74 without significant mitral valve disease. This is presumably due to her chronic respiratory issues. It at this point I am recommending that she use around the clock home oxygen and follow this closely as she is hypoxemic here without oxygen. Will set up home oxygen for her with a portable concentrator in addition to her stationary device for nighttime use. PENDING TEST RESULTS: Final pathology from her surgery Multiple tumor markers MEDICATION CHANGES: None FOLLOW-UP PLAN: With Dr. Gould on December 15 for reassessment of her surgical wound and routine postop check With Dr. Patti Fuchs in approximately 1 week for reassessment of her final pathology report and planning of any treatment With Dr. Sheila Hoff in 2-3 weeks to review respiratory, ambulation, and overall reassessment post hospitalization Greater than 35 minutes bedside and care coordination time today
--- NOTE | 2017-12-09 10:23 | ASMTLACE ---
LACE Length of stay for Answers: 7-13 days current admission Acuity / Level of Answers: Yes Care: Did the patient have an inpatient admission? Comorbidities - select Answers: Chronic pulmonary disease all that apply Other Notes: HTN, hyperlipidemia, ao rti c valve replacement, rt lower lobectomy aortic stenosis, Peptic ulcer disease # of Emergency department Answers: 5-8 visits in the last 6 months Score: 15 Date Signed: 12/09/2017 10:22 AM Electronically Signed By:Yana Dang RN
--- NOTE | 2017-12-09 10:33 | PDHOMEO2F ---
Home Oxygen Face to Face Home Orders: I certify that a physician or a nurse practitioner or physician's medical assistant has had a [id number] encounter with this patient on the date of this order due to the diagnosis listed, which relates to the primary reason the patient requires home oxygen. Alternative treatments have been tried, or considered, and deemed ineffective. It is anticipated that supplemental oxygen will result in improvement with treatment. Home oxygen qualifying diagnosis: COPD, pulmonary hypertension SpO2 on room air (%): 80% Frequency of home oxygen needed: continuous Home oxygen liters per minute: 2 Home oxygen delivery device: nasal cannula Concentrator: Yes E-tanks for mobility and back up: Yes If ordering portable O2, is the patient mobile in the home?: Yes I certify that, based on these findings, the home oxygen is medically necessary for this patient for the following length of time. Length of time home oxygen needed: 3 months Home Oxygen Comment: Will need to be reassessed by primary care and her auto hauler, may need lifetime home oxygen but will start with a shorter prescription for the moment
--- NOTE | 2017-12-09 10:35 | PDIAF ---
- Diagnosis Diagnosis: Colon cancer status post resection, chronic respiratory failure Code Status: Full Code - Medication Management Discharge Medications: Medications to Continue on Transfer Ascorbic Acid [Vitamin C 250 mg (*)] 500 mg PO DAILY 09/13/17 [Last Taken ] Atorvastatin Calcium [Lipitor 40 mg (*)] 40 mg PO HS 09/13/17 [Last Taken ] Calcium Carbonate [Oyster Shell Calcium 500 mg (*)] 500 mg PO DAILY 09/13/17 [ Last Taken 11/28/17] Cholecalciferol Vit D3 [Vitamin D3 (*)] 1,000 units PO DAILY 09/13/17 [Last Taken 11/28/17] Multivitamins [Multivitamin (*)] 1 each PO DAILY 09/13/17 [Last Taken 11/28/17] Cameron-3 Fatty Acids [Fish Oil 1000 mg (*)] 1,000 mg PO DAILY 09/13/17 [Last Taken 11/28/17] Acetaminophen [Tylenol 325mg (*)] 650 mg PO Q4HRS PRN tab 09/18/17 [Last Taken Unknown] Metoprolol Tartrate [Lopressor 25 mg (*)] 12.5 mg PO BID #60 tab 09/18/17 [Last Taken 11/28/17 09:00] Cyanocobalamin [Vitamin B12 (*)] 1,000 mcg PO DAILY 10/21/17 [Last Taken ] Warfarin Sodium [Coumadin 5MG (*)] 5 mg PO SUMOWEFR@16 10/21/17 [Last Taken 02/07] Warfarin Sodium [Coumadin 2.5MG (*)] 2.5 mg PO TUTHSA@16 11/28/17 [Last Taken ] Discharge Medications: Refer to the Discharge Home Medication list for PRN reason. - Orders Services needed: Home Care, Registered Nurse, Physical Therapy, Occupational Therapy Home Care Face to Face: I certify that this patient was under my care and that I had the required [id number] encounter meeting the encounter requirements on the discharge day. My findings support the fact that the patient is homebound as defined in Home Care Face to Face Continued: CMS Chapter 7 Medicare Benefits Manual 30.1.1 , The condition of the patient is such that there exists a normal inability to leave home and consequently, leaving home would require a considerable and taxing effort. Isolation Type: None Diet Recommendation: no restrictions on diet Diet Texture: Regular Texture Diet Wound Care Instructions: Keep clean. She will see Dr. Gould on December 15 for staple removal, contact Dr. Gould for any concerns regarding wound Sutures/Hussein Site: Abdomen Additional Instructions: Make an appointment for next week with Dr Fuchs at [facility] to review final biopsy information and plan treatment Make an appointment with Dr Hoff within 2-3 weeks Follow up with Dr. Regino Gould on December 15 for assessment of your surgical wound and staple removal. Report any problems with your incision wound to Dr. Gould promptly. - Follow Up Care Current Providers and Referrals: Regino Gould MD [Medical Doctor] - Shabbir George MD [Medical Doctor] - Sheila Hoff MD [[facility] Primary Care Provider] - As per Instructions
--- NOTE | 2017-12-09 12:35 | ASMTDCNOTE ---
Case Management Discharge Discharge Order Complete? Answers: Yes Patient to Obtain Answers: via Family Medications Faxed Final Orders Answers: Yes Agency/Facility Transfer Answers: Yes Report Printed & Faxed to Receiving Agency Family Notified Answers: Yes Notes: in room Discharge Comments Notes: 12/09/2017 Case Management Note Met w/pt to discuss PT recommendation for home care. Pt in agreement. Requested [facility], has used in the past. [facility] accepted pt via phone. Faxed final orders. to drive home. Date Signed: 12/09/2017 12:35 PM Electronically Signed By:Yana Dang RN
--- NOTE | 2017-12-09 13:36 | PDIAF ---
- Diagnosis Diagnosis: Colon cancer status post resection, chronic respiratory failure Code Status: Full Code - Medication Management Discharge Medications: Medications to Continue on Transfer Ascorbic Acid [Vitamin C 250 mg (*)] 500 mg PO DAILY 09/13/17 [Last Taken ] Atorvastatin Calcium [Lipitor 40 mg (*)] 40 mg PO HS 09/13/17 [Last Taken ] Calcium Carbonate [Oyster Shell Calcium 500 mg (*)] 500 mg PO DAILY 09/13/17 [ Last Taken 11/28/17] Cholecalciferol Vit D3 [Vitamin D3 (*)] 1,000 units PO DAILY 09/13/17 [Last Taken 11/28/17] Multivitamins [Multivitamin (*)] 1 each PO DAILY 09/13/17 [Last Taken 11/28/17] Sherrill-3 Fatty Acids [Fish Oil 1000 mg (*)] 1,000 mg PO DAILY 09/13/17 [Last Taken 11/28/17] Acetaminophen [Tylenol 325mg (*)] 650 mg PO Q4HRS PRN tab 09/18/17 [Last Taken Unknown] Metoprolol Tartrate [Lopressor 25 mg (*)] 12.5 mg PO BID #60 tab 09/18/17 [Last Taken 11/28/17 09:00] Cyanocobalamin [Vitamin B12 (*)] 1,000 mcg PO DAILY 10/21/17 [Last Taken ] Warfarin Sodium [Coumadin 5MG (*)] 5 mg PO SUMOWEFR@16 10/21/17 [Last Taken 02/07] Warfarin Sodium [Coumadin 2.5MG (*)] 2.5 mg PO TUTHSA@16 11/28/17 [Last Taken ] Discharge Medications: Refer to the Discharge Home Medication list for PRN reason. - Orders Services needed: Home Care, Registered Nurse, Physical Therapy, Occupational Therapy Home Care Face to Face: I certify that this patient was under my care and that I had the required [id number] encounter meeting the encounter requirements on the discharge day. My findings support the fact that the patient is homebound as defined in Home Care Face to Face Continued: CMS Chapter 7 Medicare Benefits Manual 30.1.1 , The condition of the patient is such that there exists a normal inability to leave home and consequently, leaving home would require a considerable and taxing effort. Isolation Type: None Diet Recommendation: no restrictions on diet Diet Texture: Regular Texture Diet Wound Care Instructions: Keep clean. She will see Dr. Gould on December 15 for staple removal, contact Dr. Gould for any concerns regarding wound Sutures/Hussein Site: Abdomen Activity/Weight Bearing Restrictions: No lifting of 25 lbs or more for 6 weeks Additional Instructions: Make an appointment for next week with Dr Fuchs at [facility] to review final biopsy information and plan treatment Make an appointment with Dr Hoff within 2-3 weeks Follow up with Dr. Regino Gould on December 15 for assessment of your surgical wound and staple removal. Report any problems with your incision wound to Dr. Gould promptly. - Follow Up Care Current Providers and Referrals: Patti Fuchs MD [Medical Doctor] - Regino Gould MD [Medical Doctor] - Shabbir George MD [Medical Doctor] - Sheila Hoff MD [[facility] Primary Care Provider] - As per Instructions
--- NOTE | 2017-12-09 16:44 | ASDISCHSUM ---
Discharge Information Plan Status:Home with Home Health Medically Cleared to Leave:12/09/2017 Discharge Date:12/09/2017 12:55 PM D/C Disposition:Home Health Service [facility] D/C Disposition:Home, Routine, Self-Care Projected Discharge Date:12/09/2017 11:00 AM Transportation at D/C:Family Discharge Delay Reason: Follow-Up Date:12/09/2017 11:00 AM Discharge Slot: Final Diagnosis: Placement Information Referral Type:*Home Health Care Services Referral ID:[id number] Provider Name:[facility] Address 1:[address] [facility] [address] Address 2: City:[place] Selection Factors: State:[place] Patient Contact Information Contact Name:BEBOHENRIK Relationship: Address:[address] [facility] City:[place] Alternate Phone: State/Zip Code:[place] [address] Email: Financial Information Financial Class:Medicare Advantage Plans Primary Plan Desc:ASHELY MEDICARE ADV Primary Plan Number:[id number] Secondary Plan Desc: Secondary Plan Number: Assessment Information LACE LACE Length of stay for Answers: 7-13 days current admission Acuity / Level of Answers: Yes Care: Did the patient have an inpatient admission? Comorbidities - select Answers: Chronic pulmonary disease all that apply Other Notes: HTN, hyperlipidemia, ao rti c valve replacement, rt lower lobectomy aortic stenosis, Peptic ulcer disease # of Emergency department Answers: 5-8 visits in the last 6 months Score: 15 Date Signed: 12/09/2017 10:22 AM Electronically Signed By:Yana Dang RN [facility] CM Progress Note CM Note CM Note Notes: Pt admitted for melena in stools x two weeks and an elevated INR. History is extensive and includes aortic stenosis with a prosthetic valve, afib for which she takes Coumadin, HTN, hyperlipidemia, peptic ulcer disease, RADHIKA, chronic hypoxemic respiratory failure, she wears 2L of oxygen at night. The pt is and lives with her spouse in [place]. She has two children. GI consulted and an upper endoscopy is scheduled. Discharge needs remain unclear at this time. Anticipate pt will likely discharge home independently when stable. CM will continue to follow for any potential needs. Discharge Plan: To be determined Date Signed: 11/29/2017 03:30 PM Electronically Signed By:Kelsey La RN [facility] CM Progress Note CM Note CM Note Notes: CM spoke to ASH Wayne regarding d/c POC. Pt may have bowel resection surgery tomorrow. Pt will most likely d/c independent when medically stable. CM available for changes. Plan: Independent Date Signed: 12/02/2017 02:13 PM Electronically Signed By:CALDERON Brantley [facility] CM Progress Note CM Note CM Note Notes: CM spoke to ASH Ryan and TYRELL Boothe regarding d/c POC. Shyann is going to put in an order for therapies. Needs are TBD at this time. CM to follow. Plan: TBD Date Signed: 12/05/2017 11:52 AM Electronically Signed By:CALDERON Brantley [facility] CM Progress Note CM Note CM Note Notes: PT recommending home vs HHC. OT recommending home. Met with pt to discuss; pt declines need for HHC. Pt states she lives with her & has a son/daughter in law that live next door & has plenty of family support. Anticipate dc home when medically stable. CM available if needs/changes. Date Signed: 12/06/2017 01:44 PM Electronically Signed By:Krystal Seay RN Case Management Discharge Plan Note Case Management Discharge Discharge Order Complete? Answers: Yes Patient to Obtain Answers: via Family Medications Faxed Final Orders Answers: Yes Agency/Facility Transfer Answers: Yes Report Printed & Faxed to Receiving Agency Family Notified Answers: Yes Notes: in room Discharge Comments Notes: 12/09/2017 Case Management Note Met w/pt to discuss PT recommendation for home care. Pt in agreement. Requested [facility], has used in the past. [facility] accepted pt via phone. Faxed final orders. to drive home. Date Signed: 12/09/2017 12:35 PM Electronically Signed By:Yana Dang RN Intervention Information
== END 2017-12-09 12:55 | disposition home or self-care (01) | DRG 330 ==
LOC: INTOOBSV 18:41 → F3E 21:25 → OBSVTOIN 11-29 12:39 → F2W 12-04 11:19
PROVIDERS: ADMIT Internal Medicine; ATTEND Internal Medicine
DX: C18.2 Malignant neoplasm of ascending colon (principal); K80.10 Calculus of gallbladder with chronic cholecystitis without obstruction; D62 Acute posthemorrhagic anemia; K92.2 Gastrointestinal hemorrhage, unspecified; J96.11 Chronic respiratory failure with hypoxia; I27.20 Pulmonary hypertension, unspecified; I48.0 Paroxysmal atrial fibrillation; D12.4 Benign neoplasm of descending colon; E78.5 Hyperlipidemia, unspecified; Z79.01 Long term (current) use of anticoagulants; Z95.3 Presence of xenogenic heart valve; I07.1 Rheumatic tricuspid insufficiency
CPT/HCPCS: 96374; 97116-GP; 97162-GP; 97165-GO; 97530-GP; 97535-GO; G0378; G8978-GP-CJ; G8979-GP-CI; G8980-GP-CI; G8987-GO-CJ; G8988-GO-CI; J0694; J1100; J1170; J1644; J1650; J1940; J2250; J2405; J2704; J2916; J3010; J3430; P9016; P9017; Q9967

== ENCOUNTER → 2018-02-18 | Outpatient (CLI) | payer OTHER | LOC: BMCIMAGING 12:34 | PROVIDERS: ATTEND Internal Medicine | DX: Z12.31 Encounter for screening mammogram for malignant neoplasm of breast (principal) ==

== ENCOUNTER → 2018-04-14 | Outpatient (CLI) | payer OTHER | LOC: BMCIMAGING 07:58 | PROVIDERS: ATTEND Physician Assistant | DX: M19.011 Primary osteoarthritis, right shoulder (principal); M24.011 Loose body in right shoulder ==

== ENCOUNTER → 2018-11-09 | Outpatient (CLI) | payer OTHER | LOC: BMCIMAGING 11:54 | PROVIDERS: ATTEND Orthopaedic Surgery Hand Surgery | DX: M47.892 Other spondylosis, cervical region (principal) ==